=== PATIENT | male | born 1935 | race Caucasian/White ===

== ENCOUNTER → 2016-04-07 | Outpatient (CLI) | payer MEDICARE ==
[2016-04-07 10:36] LABS: ABSOLUTE BASOPHILS # (AUTO) 0.1 10^3/uL (0.0-0.2); ABSOLUTE EOSINOPHILS # (AUTO) 0.3 10^3/uL (0.0-0.6); ABSOLUTE LYMPHOCYTES (AUTO) 0.8 10^3/uL (0.5-4.7); ABSOLUTE MONOCYTES (AUTO) 0.4 10^3/uL (0.1-1.4); ABSOLUTE NEUT (AUTO) 4.6 10^3/uL (1.7-8.2); BASOPHILS % (AUTO) 0.9 % (0-2); EOSINOPHILS % (AUTO) 4.3 % (0-6); HEMATOCRIT 26.9 % (37.9-51.0); HEMOGLOBIN 8.3 g/dL (13.5-17.0); LYMPHOCYTES % (AUTO) 13.6 % (13-45); MEAN CORPUSCULAR HEMOGLOBIN 22.4 pg (27.0-33.4); MEAN CORPUSCULAR HGB CONC 30.9 g/dL (32.0-36.0); MEAN CORPUSCULAR VOLUME 72 fl (80-97); RED BLOOD COUNT 3.71 10^6/uL (4.35-5.55); RED CELL DISTRIBUTION WIDTH 16.9 % (11.5-14.0); SEGMENTED NEUTROPHILS % (AUTO) 74.2 % (42-78); WHITE BLOOD COUNT 6.2 10^3/uL (4.0-10.5)
[2016-04-07 11:03] LABS: ALANINE AMINOTRANSFERASE 21 U/L (21-72); ALBUMIN 2.6 g/dL (3.5-5.0); ALKALINE PHOSPHATASE 74 U/L (38-126); ANION GAP 11 (5-19); ASPARTATE AMINO TRANSFERASE 17 U/L (17-59); BILIRUBIN,TOTAL 0.3 mg/dL (0.2-1.3); BLOOD UREA NITROGEN 15 mg/dL (7-20); CALCIUM 8.7 mg/dL (8.4-10.2); CARBON DIOXIDE 25 mmol/L (22-30); CHLORIDE 102 mmol/L (98-107); CREATININE RESULT 1.49 mg/dL (0.52-1.25); GLUCOSE 289 mg/dL (75-110); MAGNESIUM 1.9 mg/dL (1.6-2.3); POTASSIUM 4.5 mmol/L (3.6-5.0); SODIUM 137.8 mmol/L (137-145); TOTAL PROTEIN 5.5 g/dL (6.3-8.2)
== END ==
LOC: OD 09:22
PROVIDERS: ATTEND Internal Medicine
DX: I50.9 Heart failure, unspecified (principal); E11.9 Type 2 diabetes mellitus without complications; E87.70 Fluid overload, unspecified; E78.5 Hyperlipidemia, unspecified; I25.10 Atherosclerotic heart disease of native coronary artery without angina pectoris; I10 Essential (primary) hypertension
CPT/HCPCS: 36415; 80053; 83036; 83735; 83880; 84443; 85025

== ENCOUNTER → 2016-04-25 | Outpatient (CLI) | payer MEDICARE ==
[2016-04-25 09:58] LABS: ABSOLUTE BASOPHILS # (AUTO) 0.1 10^3/uL (0.0-0.2); ABSOLUTE EOSINOPHILS # (AUTO) 0.4 10^3/uL (0.0-0.6); ABSOLUTE MONOCYTES (AUTO) 0.5 10^3/uL (0.1-1.4); ABSOLUTE NEUT (AUTO) 4.1 10^3/uL (1.7-8.2); EOSINOPHILS % (AUTO) 6.4 % (0-6); HEMATOCRIT 27.5 % (37.9-51.0); HEMOGLOBIN 8.5 g/dL (13.5-17.0); LYMPHOCYTES % (AUTO) 16.4 % (13-45); MEAN CORPUSCULAR HEMOGLOBIN 21.4 pg (27.0-33.4); MEAN CORPUSCULAR HGB CONC 31.1 g/dL (32.0-36.0); MEAN CORPUSCULAR VOLUME 69 fl (80-97); MONOCYTES % (AUTO) 8.5 % (3-13); RED BLOOD COUNT 3.99 10^6/uL (4.35-5.55); RED CELL DISTRIBUTION WIDTH 16.9 % (11.5-14.0); SEGMENTED NEUTROPHILS % (AUTO) 67.7 % (42-78); WHITE BLOOD COUNT 6.1 10^3/uL (4.0-10.5)
[2016-04-25 10:26] LABS: ANION GAP 8 (5-19); BLOOD UREA NITROGEN 15 mg/dL (7-20); CALCIUM 8.7 mg/dL (8.4-10.2); CARBON DIOXIDE 26 mmol/L (22-30); CHLORIDE 103 mmol/L (98-107); CREATININE RESULT 1.18 mg/dL (0.52-1.25); GLUCOSE 131 mg/dL (75-110); MAGNESIUM 2.1 mg/dL (1.6-2.3); POTASSIUM 4.7 mmol/L (3.6-5.0); SODIUM 137.1 mmol/L (137-145)
[2016-04-26 10:15] LABS: FERRITIN 8.82 ng/mL (17.9-464.0)
[2016-04-26 10:48] LABS: FOLATE > 20.00 ng/mL (>2.76)
== END ==
LOC: OD 08:55
PROVIDERS: ATTEND Internal Medicine
DX: D64.9 Anemia, unspecified (principal); N18.3 Chronic kidney disease, stage 3 (moderate); I25.10 Atherosclerotic heart disease of native coronary artery without angina pectoris; E11.9 Type 2 diabetes mellitus without complications; I50.9 Heart failure, unspecified
CPT/HCPCS: 36415; 80048; 82607; 82728; 82746; 83540; 83550; 83735; 83880; 85025

== ENCOUNTER 2016-05-28 11:57 | Emergency (ER) | payer MEDICARE ==
[2016-05-28] MEDS ORDERED: ASPIRIN 81 MG TABLET, CHEWABLE PO ONE (12:15)
--- NOTE | 2016-05-28 12:39 | ER Document Report ---
ED General - General Chief Complaint: Dizziness Stated Complaint: SYNCOPE Mode of Arrival: Ambulatory Information source: Patient, [facility] Records Notes: 80-year-old male history of coronary artery disease presents with complaints of after eating sausage and serial that his abdomen did not feel well that he was gurgling and he saw black spots. Patient states he felt nauseous. On arrival to emergency department patient vomited one time his food came up and he states all his symptoms resolved and now he is asymptomatic. Patient notes history of anemia, I personally intubated this patient 1 year and a half ago for pneumonia respiratory failure and septic shock at that time. pt denies any other complaints Patient does note he has had a sensitive stomach his whole adult life and has had many similar episodes TRAVEL OUTSIDE OF THE [place] IN LAST 30 DAYS: No - HPI Onset: Just prior to arrival Onset/Duration: Sudden Quality of pain: No pain Severity: Mild Pain Level: Denies Associated symptoms: Nausea, Vomiting Exacerbated by: Denies Relieved by: Denies Similar symptoms previously: Yes Recently seen / treated by doctor: Yes - Related Data Allergies/Adverse Reactions: Penicillins Allergy (Verified 05/03/14 19:04) Sulfa (Sulfonamide Antibiotics) Allergy (Verified 05/03/14 19:04) Edema Past Medical History - Social History Smoking Status: Never Smoker Cigarette use (# per day): No Chew tobacco use (# tins/day): No Smoking Education Provided: No Family History: Reviewed & Not Pertinent - Past Medical History Cardiac Medical History: Reports: Hx Coronary Artery Disease, Hx Hypercholesterolemia, Hx Hypertension Denies: Hx Heart Attack Pulmonary Medical History: Denies: Hx Asthma Neurological Medical History: Denies: Hx Cerebrovascular Accident, Hx Seizures Endocrine Medical History: Reports: Hx Diabetes Mellitus Type 2 Renal/ Medical History: Denies: Hx Peritoneal Dialysis GI Medical History: Reports: Hx Hiatal Hernia. Denies: Hx Hepatitis, Hx Ulcer Infectious Medical History: Denies: Hx Hepatitis Past Surgical History: Reports: Hx Cardiac Catheterization - stents, Hx Coronary Artery Bypass Graft, Hx Open Heart Surgery - CABG x2. Denies: Hx Pacemaker - Immunizations Hx Diphtheria, Pertussis, Tetanus Vaccination: No Review of Systems - Review of Systems Notes: REVIEW OF SYSTEMS: CONSTITUTIONAL : Denies fever, chills, or sweats. Denies recent illness. EENT: Denies eye, ear, throat, or mouth pain or symptoms. Denies nasal or sinus congestion or discharge. Denies throat, tongue, or mouth swelling or difficulty swallowing. CARDIOVASCULAR: Denies chest pain. Denies palpitations or racing or irregular heart beat. Denies ankle edema. RESPIRATORY: Denies cough, cold, or chest congestion. Denies shortness of breath, difficulty breathing, or wheezing. GASTROINTESTINAL: Admits nausea vomiting GENITOURINARY: Denies difficulty urinating, painful urination, burning, frequency, blood in urine, or discharge. MUSCULOSKELETAL: Denies back or neck pain or stiffness. Denies joint pain or swelling. SKIN: Denies rash, lesions or sores. HEMATOLOGIC : Denies easy bruising or bleeding. LYMPHATIC: Denies swollen, enlarged glands. NEUROLOGICAL: Admits to dizziness PSYCHIATRIC: Denies anxiety or stress. Denies depression, suicidal ideation, or homicidal ideation. ALL OTHER SYSTEMS REVIEWED AND NEGATIVE. Dictation was performed using [employer] voice recognition software PHYSICAL EXAMINATION: GENERAL: Well-appearing, well-nourished and in no acute distress. HEAD: Atraumatic, normocephalic. EYES: Pupils equal round and reactive to light, extraocular movements intact, sclera anicteric, conjunctiva are normal. ENT: Nares patent, oropharynx clear without exudates. Moist mucous membranes. NECK: Normal range of motion, supple without lymphadenopathy LUNGS: Breath sounds clear to auscultation bilaterally and equal. No wheezes rales or rhonchi. HEART: Regular rate and rhythm without murmurs midsternal scar ABDOMEN: Soft, nontender, nondistended abdomen. No guarding, no rebound. No masses appreciated. Musculoskeletal: Normal range of motion, no pitting or edema. No cyanosis. NEUROLOGICAL: Cranial nerves grossly intact. Normal speech, normal gait. Normal sensory, motor exams PSYCH: Normal mood, normal affect. SKIN: Warm, Dry, normal turgor, no rashes or lesions noted. Physical Exam - Vital signs Vitals: Temp Pulse Resp BP Pulse Ox 97.3 F 67 16 123/52 L 96 05/28/16 12:02 05/28/16 12:02 05/28/16 12:02 05/28/16 12:02 05/28/16 12:02 Course - Re-evaluation Re-evalutation: 05/28/16 13:06 I believe patient's symptoms are secondary to feeling nauseous after eating given that he has an extensive history of this. Lab work is pending at this time the patient looks well is in no distress 05/28/16 14:02 Given that lab work looks well patient is in no distress symptoms have resolved I believe patient is stable for discharge. Both he and are happy with this plan After performing a Medical Screening Examination, I estimate there is LOW risk for INTRACRANIAL HEMORRHAGE, ISCHEMIC CVA, MALIGNANT DYSRHYTHMIA, ACUTE CORONARY SYNDROME, MENINGITIS, PULMONARY EMBOLISM, or SEPSIS thus I consider the discharge disposition reasonable. I have reevaluated this patient multiple times and no significant life threatening changes are noted. The patient and I have discussed the diagnosis and risks, and we agree with discharging home with close follow-up with the understanding that symptoms and presentations can change. We also discussed returning to the Emergency Department immediately if new or worsening symptoms occur. We have discussed the symptoms which are most concerning (e.g., changing or worsening pain, weakness, vomiting, fever) that necessitate immediate return. - Vital Signs Vital signs: Temp Pulse Resp BP Pulse Ox 97.3 F 67 13 142/56 H 96 05/28/16 12:02 05/28/16 12:02 05/28/16 14:00 05/28/16 13:01 05/28/16 14:00 - Laboratory Result Diagrams: 05/28/16 12:35 05/28/16 12:35 Laboratory results interpreted by me: 05/28/16 05/28/16 12:35 12:35 Hgb 10.9 L Hct 34.3 L MCV 74 L MCH 23.6 L MCHC 31.7 L RDW 22.0 H Creatinine 1.40 H Est GFR ( Amer) 59 L Est GFR (Non-Af Amer) 49 L Glucose 279 H - Diagnostic Test Radiology reviewed: Image reviewed, Reports reviewed - EKG Interpretation by Me EKG shows normal: Sinus rhythm, Hilbert, Intervals, QRS Complexes Discharge - Discharge Clinical Impression: Abdominal pain Qualifiers: Abdominal location: left upper quadrant Qualified Code(s): R10.12 - Left upper quadrant pain Nausea & vomiting Qualifiers: Vomiting type: unspecified Vomiting Intractability: non-intractable Qualified Code(s): R11.2 - Nausea with vomiting, unspecified Condition: Stable Disposition: HOME, SELF-CARE Instructions: Abdominal Pain ([facility]) Referrals: ASHWIN RUIZ MD [Primary Care Provider] - Follow up tomorrow
[2016-05-28 12:47] LABS: ABSOLUTE BASOPHILS # (AUTO) 0.1 10^3/uL (0.0-0.2); ABSOLUTE EOSINOPHILS # (AUTO) 0.3 10^3/uL (0.0-0.6); ABSOLUTE MONOCYTES (AUTO) 0.6 10^3/uL (0.1-1.4); ABSOLUTE NEUT (AUTO) 5.2 10^3/uL (1.7-8.2); BASOPHILS % (AUTO) 1.1 % (0-2); EOSINOPHILS % (AUTO) 4.7 % (0-6); HEMATOCRIT 34.3 % (37.9-51.0); HEMOGLOBIN 10.9 g/dL (13.5-17.0); HGB HCT DIFFERENCE -1.6; LYMPHOCYTES % (AUTO) 13.9 % (13-45); MEAN CORPUSCULAR HEMOGLOBIN 23.6 pg (27.0-33.4); MEAN CORPUSCULAR HGB CONC 31.7 g/dL (32.0-36.0); MEAN CORPUSCULAR VOLUME 74 fl (80-97); MONOCYTES % (AUTO) 8.2 % (3-13); RED BLOOD COUNT 4.62 10^6/uL (4.35-5.55); SEGMENTED NEUTROPHILS % (AUTO) 72.1 % (42-78); WHITE BLOOD COUNT 7.1 10^3/uL (4.0-10.5)
[2016-05-28 13:07] LABS: ALANINE AMINOTRANSFERASE 25 U/L (21-72); ALBUMIN 3.7 g/dL (3.5-5.0); ALKALINE PHOSPHATASE 77 U/L (38-126); ANION GAP 13 (5-19); ASPARTATE AMINO TRANSFERASE 22 U/L (17-59); BILIRUBIN,DIRECT 0.3 mg/dL (0.0-0.4); BILIRUBIN,TOTAL 0.5 mg/dL (0.2-1.3); BLOOD UREA NITROGEN 20 mg/dL (7-20); CALCIUM 9.2 mg/dL (8.4-10.2); CARBON DIOXIDE 25 mmol/L (22-30); CHLORIDE 101 mmol/L (98-107); CREATINE KINASE 89 U/L (55-170); GLUCOSE 279 mg/dL (75-110); POTASSIUM 4.6 mmol/L (3.6-5.0); SODIUM 139.1 mmol/L (137-145); TOTAL PROTEIN 6.5 g/dL (6.3-8.2)
[2016-05-28 13:19] LABS: CREATINE KINASE MB 1.62 ng/mL (<4.55)
[2016-05-28 13:20] LABS: TROPONIN I < 0.012 ng/mL
[2016-05-28 14:08] VITALS: BP 159/60
--- NOTE | 2016-05-28 18:11 | EKG REPORT ---
SEVERITY:- ABNORMAL ECG - SINUS RHYTHM FIRST DEGREE AV BLOCK NONSPECIFIC INTRAVENTRICULAR CONDUCTION DELAY NONSPECIFIC ST-T CHANGES- INFERIOR LEADS : Confirmed by: Henrique Grimm MD 28-May-2016 18:11:07
== END 2016-05-28 14:08 | disposition home or self-care (01) ==
LOC: ER 11:57
DX: R10.12 Left upper quadrant pain (principal); R11.2 Nausea with vomiting, unspecified; R42 Dizziness and giddiness; R55 Syncope and collapse
CPT/HCPCS: 36415; 71010; 80053; 82550; 82553; 84484; 85025; 93005; 93010; 99284

== ENCOUNTER 2016-12-29 09:14 | Day surgery (SDC) | payer MEDICARE ==
[~2016-12-29 09:14] MED LIST: KETOROLAC TROMETHAMINE 0.45% 4 DROP/0.4 ML DROPERETTE OS PRN
[2016-12-29] MEDS: TETRACAINE HCL 0.5% OPH SOLN 2 ML OS PRN ×4 (09:59→10:31)
[2016-12-29] MEDS: CYCLOPENTOLATE 0.2%/PHENYLEPHRINE 1% OPH SOLN 2 ML OS PRN ×2 (10:00→10:23)
[2016-12-29] MEDS: BESIFLOXACIN HCL 0.6% OPH SUSP 5 ML BOTTLE OS PRN ×4 (10:00→10:50)
[2016-12-29] MEDS: TROPICAMIDE 1% OPH SOLN 3 ML OS PRN ×3 (10:00→10:23)
[2016-12-29] MEDS ORDERED: FENTANYL CITRATE INJ/PF 100 MCG/2 ML AMPUL ONE (10:22)
[2016-12-29] MEDS ORDERED: MIDAZOLAM 2 MG/2 ML INJ ONE (10:22)
[2016-12-29] MEDS: CHONDR SU A NA/HYALUR INTRAOC KIT (SURGICARE) ONE ×2 (10:28→10:37)
[2016-12-29] MEDS: LIDOCAINE 1% INJ-PF (10 MG/ML) 30 ML SDV ONE ×2 (10:28→10:37)
[2016-12-29] MEDS: PHENYLEPHRINE/KETOROLAC 1%-0.3% 4 ML VIAL ONE ×2 (10:28→10:37)
--- NOTE | 2016-12-29 19:33 | [facility] OPERATIVE REPORT E ---
[facility] Operative Report NAME: NANCY VALDES AGE: 81Y DATE OF SURGERY: 12/29/2016 ROOM: PREOPERATIVE DIAGNOSIS: CATARACT, LEFT EYE. POSTOPERATIVE DIAGNOSIS: CATARACT, LEFT EYE. OPERATION: Cataract extraction with intraocular lens implant of the left eye. SURGEON: EMERALD CHEATHAM M.D. ANESTHESIA: Topical. PROCEDURE: After obtaining appropriate consent, the patient's left eye was prepped and draped in sterile fashion as well as the surgeon in a sterile manner and cataract surgery was started. First a paracentesis blade was used to make a small side-port incision. Viscoelastic was used to inflate the anterior chamber. Next a 2.4 mm incision was made with the paracentesis blade. A continuous capsulorrhexis incision was made using a cystotome and Utrata forceps. Following this hydrodissection was carried out to make the lens fully loose and mobile and it was rotated 90 degrees. Following this, a [id number]-[id number] technique was used to phacoemulsify the lens with a CDE of 7.23. The remaining cortex was removed with irrigation/aspiration. Provisc was instilled into the capsular bag to inflate the bag. A SN60WF, 22.0 diopter lens was placed. The remaining viscoelastic material was removed with irrigation/aspiration. Following this, a 10-0 nylon suture was used to close the incision and it was found to be watertight. Vigamox was instilled in the eye and a protective shield was placed over the eye. The patient returned to the postoperative recovery in stable condition. DICTATING PHYSICIAN: EMERALD CHEATHAM M.D. [id number] PHY#: [id number] ID: [id number] JOB#: [id number] ACCT: [id number] cc:EMERALD CHEATHAM M.D. >
--- NOTE | 2016-12-30 04:58 | [facility] DISCHARGE SUMMARY E ---
[facility] Discharge Summary NAME: NANCY VALDES AGE: 81Y ADMITTED: 12/29/2016 DISCHARGED: This is an 81-year-old patient who underwent cataract extraction of the left eye. DIAGNOSIS: Cataract, left eye. He underwent surgery because he was having difficulty with glare from headlights at night. DISCHARGE INSTRUCTIONS: He is to be on a regular diet. No bending at the waist, no heavy lifting. He should use the Besivance, Ilevro, and Durezol at 3 p.m. and 8 p.m. and sleep with a rigid shield. I will see him for a 1 day postoperative tomorrow. DICTATING PHYSICIAN: EMERALD CHEATHAM M.D. [id number] PHY#: [id number] ID: [id number] JOB#: [id number] ACCT: [id number] cc:EMERALD CHEATHAM M.D. >
== END 2016-12-29 11:28 | disposition home or self-care (01) ==
LOC: SC 09:14
PROVIDERS: ATTEND Internal Medicine
PROC: 08RK3JZ Replacement of Left Lens with Synthetic Substitute, Percutaneous Approach (ICD-10-PCS; principal; 2016-12-29 11:00)
DX: H25.812 Combined forms of age-related cataract, left eye (principal); H57.03 Miosis; I10 Essential (primary) hypertension; E78.00 Pure hypercholesterolemia, unspecified; K21.9 Gastro-esophageal reflux disease without esophagitis; I51.9 Heart disease, unspecified; D50.9 Iron deficiency anemia, unspecified; Z87.891 Personal history of nicotine dependence; Z79.02 Long term (current) use of antithrombotics/antiplatelets; Z88.0 Allergy status to penicillin; Z88.2 Allergy status to sulfonamides; Z79.84 Long term (current) use of oral hypoglycemic drugs; Z79.4 Long term (current) use of insulin
CPT/HCPCS: 66984; 82962; V2632; J2250; J3490 ×2; A9270; J3010; C9447; 142

== ENCOUNTER 2017-04-20 23:13 | Emergency (ER) | payer MEDICARE ==
--- NOTE | 2017-04-21 00:54 | ER Document Report ---
ED ENT - General Chief Complaint: Nose Bleed Stated Complaint: NOSE BLEED Time Seen by Provider: 04/21/17 00:52 Notes: The patient is an 81-year-old male, past medical history anemia, CAD with stents (on Plavix and aspirin), presents with 1 hour of epistaxis. He estimates that he lost about 8 ounces of blood. He received a blood transfusion earlier today for chronic anemia. He denies nasal trauma and has already tried holding pressure to the nose. TRAVEL OUTSIDE OF THE [place] IN LAST 30 DAYS: No - Related Data Allergies/Adverse Reactions: Penicillins Allergy (Verified 12/23/16 11:04) quinine Allergy (Verified 12/23/16 11:04) Sulfa (Sulfonamide Antibiotics) Allergy (Verified 12/23/16 11:04) Edema Past Medical History - General Information source: Patient - Social History Smoking Status: Former Smoker Family History: Reviewed & Not Pertinent Patient has suicidal ideation: No Patient has homicidal ideation: No - Past Medical History Cardiac Medical History: Reports: Hx Coronary Artery Disease, Hx Hypercholesterolemia, Hx Hypertension Denies: Hx Heart Attack Pulmonary Medical History: Denies: Hx Asthma Neurological Medical History: Denies: Hx Cerebrovascular Accident, Hx Seizures Endocrine Medical History: Reports: Hx Diabetes Mellitus Type 2 Renal/ Medical History: Denies: Hx Peritoneal Dialysis GI Medical History: Reports: Hx Hiatal Hernia. Denies: Hx Hepatitis, Hx Ulcer Infectious Medical History: Denies: Hx Hepatitis Past Surgical History: Reports: Hx Cardiac Catheterization - stents, Hx Coronary Artery Bypass Graft, Hx Open Heart Surgery - CABG x1. Denies: Hx Pacemaker - Immunizations Hx Diphtheria, Pertussis, Tetanus Vaccination: No Review of Systems - Review of Systems Notes: REVIEW OF SYSTEMS: CONSTITUTIONAL: -fevers, -chills EENT: -eye pain, -difficulty swallowing, -nasal congestion, +epistaxis CARDIOVASCULAR: -chest pain, -syncope. RESPIRATORY: -cough, -SOB GASTROINTESTINAL: -abdominal pain, -nausea, -vomiting, -diarrhea GENITOURINARY: -dysuria, -hematuria MUSCULOSKELETAL: -back pain, -neck pain SKIN: -rash or skin lesions. HEMATOLOGIC: -easy bruising or bleeding. LYMPHATIC: -swollen, enlarged glands. NEUROLOGICAL: -altered mental status or loss of consciousness, -headache, - neurologic symptoms PSYCHIATRIC: -anxiety, -depression. ALL OTHER SYSTEMS REVIEWED AND NEGATIVE. Physical Exam - Vital signs Vitals: Resp Pulse Ox 16 100 04/21/17 00:30 04/21/17 00:30 - Notes Notes: PHYSICAL EXAMINATION: GENERAL: Well-appearing, well-nourished and in no acute distress. HEAD: Atraumatic, normocephalic. EYES: Pupils equal round and reactive to light, extraocular movements intact, sclera anicteric, conjunctiva are normal. ENT: large clot in left nares, no active bleeding after clot removed, oropharynx clear without exudates. Moist mucous membranes. NECK: Normal range of motion, supple without lymphadenopathy LUNGS: Breath sounds clear to auscultation bilaterally and equal. No wheezes rales or rhonchi. HEART: Regular rate and rhythm without murmurs ABDOMEN: Soft, nontender, normoactive bowel sounds. No guarding, no rebound. No masses appreciated. EXTREMITIES: Normal range of motion, no pitting or edema. No cyanosis. NEUROLOGICAL: Cranial nerves grossly intact. Normal speech, normal gait. Normal sensory and motor exams. PSYCH: Normal mood, normal affect. SKIN: Warm, Dry, normal turgor, no rashes or lesions noted. Course - Re-evaluation Re-evalutation: Patient with no active bleeding after large clot removed from left naris. Nasal packing was placed that was soaked in TXA and Afrin. The packing was left in place for 45 minutes and removed. There remain no active bleeding. His hemoglobin is 10.4 and he does not require transfusions at this time. Given very strict return precautions and he understands. - Vital Signs Vital signs: Temp Pulse Resp BP Pulse Ox 98.4 F 74 16 150/62 H 97 04/21/17 02:11 04/21/17 02:11 04/21/17 02:11 04/21/17 02:11 04/21/17 02:11 - Laboratory Result Diagrams: 04/21/17 01:39 Laboratory results interpreted by me: 04/21/17 01:39 RBC 3.69 L Hgb 10.4 L Hct 30.8 L RDW 14.9 H Procedures - Nosebleed Procedure Left Time completed: 01:30 Location: Anterior Supplies used: Packing Notes: Soaked in Afrin and TXA Discharge - Discharge Clinical Impression: Epistaxis Condition: Stable Disposition: HOME, SELF-CARE Additional Instructions: Nosebleed Instructions There is a significant chance of re-bleeding following a nosebleed. Proper care makes this less likely. Do not touch the nose for 24 hours. Do not blow the nose forcefully for one week. After 24 hours, gently apply Vaseline ointment to both nostrils with the tip of a finger, three times a day, for one week. It's normal to have a bloody mucous discharge for a few days. If active bleeding recurs, blow all the blood from the nose, then sit quietly and pinch the nose as firmly as possible for 10 minutes. If this does not stop the bleeding, return for further care. If packing was left in the nose and it starts to come out of the nostril, either tuck it back in or cut it off. Don't pull it out. Return for recheck and removal of the packing when instructed. Persons with frequent nosebleeds should avoid aspirin (unless prescribed for another reason). Humidity in the bedroom, and petroleum jelly applied to the nostrils at night may help. Referrals: BREE NESS DO [ASSOCIATE] - Follow up as needed
[2017-04-21] MEDS ORDERED: TRANEXAMIC ACID INJ/PF 1,000 MG/10 ML SDV IV ONE (01:07)
[2017-04-21] MEDS ORDERED: OXYMETAZOLINE HCL 0.05% NASAL SPRAY 15 ML BOTTLE NASL ONE (01:07)
[2017-04-21 01:46] LABS: ABSOLUTE BASOPHILS # (AUTO) 0.1 10^3/uL (0.0-0.2); ABSOLUTE EOSINOPHILS # (AUTO) 0.4 10^3/uL (0.0-0.6); ABSOLUTE LYMPHOCYTES (AUTO) 1.3 10^3/uL (0.5-4.7); ABSOLUTE MONOCYTES (AUTO) 0.7 10^3/uL (0.1-1.4); ABSOLUTE NEUT (AUTO) 5.7 10^3/uL (1.7-8.2); BASOPHILS % (AUTO) 0.9 % (0-2); EOSINOPHILS % (AUTO) 4.9 % (0-6); HEMATOCRIT 30.8 % (37.9-51.0); HEMOGLOBIN 10.4 g/dL (13.5-17.0); LYMPHOCYTES % (AUTO) 15.8 % (13-45); MEAN CORPUSCULAR HEMOGLOBIN 28.3 pg (27.0-33.4); MEAN CORPUSCULAR HGB CONC 33.9 g/dL (32.0-36.0); MEAN CORPUSCULAR VOLUME 84 fl (80-97); MONOCYTES % (AUTO) 9.1 % (3-13); PLATELET COUNT 240 10^3/uL (150-450); RED BLOOD COUNT 3.69 10^6/uL (4.35-5.55); RED CELL DISTRIBUTION WIDTH 14.9 % (11.5-14.0); SEGMENTED NEUTROPHILS % (AUTO) 69.3 % (42-78); TOTAL CELLS COUNTED % (AUTO) 100 %; WHITE BLOOD COUNT 8.2 10^3/uL (4.0-10.5)
[2017-04-21 02:13] VITALS: BP 150/62
== END 2017-04-21 02:23 | disposition home or self-care (01) ==
LOC: ER 23:13
DX: R04.0 Epistaxis (principal); D64.9 Anemia, unspecified; E11.9 Type 2 diabetes mellitus without complications; I10 Essential (primary) hypertension; I25.10 Atherosclerotic heart disease of native coronary artery without angina pectoris; Z79.02 Long term (current) use of antithrombotics/antiplatelets; Z79.82 Long term (current) use of aspirin; Z95.5 Presence of coronary angioplasty implant and graft; Z88.0 Allergy status to penicillin; Z88.2 Allergy status to sulfonamides; Z87.891 Personal history of nicotine dependence; Z95.1 Presence of aortocoronary bypass graft
CPT/HCPCS: 99283; 36415; 85025; 30901; J3490 ×2

== ENCOUNTER 2017-05-05 12:32 | Emergency (ER) | payer MEDICARE ==
[2017-05-05] MEDS ORDERED: OXYMETAZOLINE HCL 0.05% NASAL SPRAY 15 ML BOTTLE NASL ONE (13:00)
--- NOTE | 2017-05-05 13:16 | ER Document Report ---
ED General - General Chief Complaint: Nose Bleed Stated Complaint: NOSE BLEED Time Seen by Provider: 05/05/17 12:43 Mode of Arrival: Ambulatory Information source: Patient Notes: 81-year-old male on Plavix and aspirin presents with complaints of nosebleed every day for the past 2 weeks. Patient notes it worsens at nighttime, he denies any fevers or chills TRAVEL OUTSIDE OF THE [place] IN LAST 30 DAYS: No - HPI Onset: Other Onset/Duration: Persistent Quality of pain: No pain Severity: Mild Pain Level: Denies Associated symptoms: Other Exacerbated by: Denies Relieved by: Denies Similar symptoms previously: Yes Recently seen / treated by doctor: Yes - Related Data Allergies/Adverse Reactions: Penicillins Allergy (Verified 05/05/17 12:33) quinine Allergy (Verified 05/05/17 12:33) Sulfa (Sulfonamide Antibiotics) Allergy (Verified 05/05/17 12:33) Edema Past Medical History - Social History Smoking Status: Never Smoker Cigarette use (# per day): No Chew tobacco use (# tins/day): No Smoking Education Provided: No Frequency of alcohol use: None Drug Abuse: None Family History: Reviewed & Not Pertinent Patient has suicidal ideation: No Patient has homicidal ideation: No - Past Medical History Cardiac Medical History: Reports: Hx Coronary Artery Disease, Hx Hypercholesterolemia, Hx Hypertension Denies: Hx Heart Attack Pulmonary Medical History: Denies: Hx Asthma Neurological Medical History: Denies: Hx Cerebrovascular Accident, Hx Seizures Endocrine Medical History: Reports: Hx Diabetes Mellitus Type 2 Renal/ Medical History: Denies: Hx Peritoneal Dialysis GI Medical History: Reports: Hx Hiatal Hernia. Denies: Hx Hepatitis, Hx Ulcer Infectious Medical History: Denies: Hx Hepatitis Past Surgical History: Reports: Hx Cardiac Catheterization - stents, Hx Coronary Artery Bypass Graft, Hx Open Heart Surgery - CABG x1. Denies: Hx Pacemaker - Immunizations Hx Diphtheria, Pertussis, Tetanus Vaccination: No Review of Systems - Review of Systems Notes: REVIEW OF SYSTEMS: CONSTITUTIONAL : Denies fever, chills, or sweats. Denies recent illness. EENT: Admits bleeding from left nostril CARDIOVASCULAR: Denies chest pain. Denies palpitations or racing or irregular heart beat. Denies ankle edema. RESPIRATORY: Denies cough, cold, or chest congestion. Denies shortness of breath, difficulty breathing, or wheezing. GASTROINTESTINAL: Denies abdominal pain or distention. Denies nausea, vomiting , or diarrhea. Denies blood in vomitus, stools, or per rectum. Denies black, tarry stools. Denies constipation. GENITOURINARY: Denies difficulty urinating, painful urination, burning, frequency, blood in urine, or discharge. MUSCULOSKELETAL: Denies back or neck pain or stiffness. Denies joint pain or swelling. SKIN: Denies rash, lesions or sores. HEMATOLOGIC : Denies easy bruising or bleeding. LYMPHATIC: Denies swollen, enlarged glands. NEUROLOGICAL: Denies confusion or altered mental status. Denies passing out or loss of consciousness. Denies dizziness or lightheadedness. Denies headache. Denies weakness or paralysis or loss of use of either side. Denies problems with gait or speech. Denies sensory loss, numbness, or tingling. Denies seizures. PSYCHIATRIC: Denies anxiety or stress. Denies depression, suicidal ideation, or homicidal ideation. ALL OTHER SYSTEMS REVIEWED AND NEGATIVE. Dictation was performed using [employer] voice recognition software PHYSICAL EXAMINATION: GENERAL: Well-appearing, well-nourished and in no acute distress. HEAD: Atraumatic, normocephalic. EYES: Pupils equal round and reactive to light, extraocular movements intact, sclera anicteric, conjunctiva are normal. ENT: Right nostril is normal in appearance left does have a large clot no active bleeding NECK: Normal range of motion, supple without lymphadenopathy LUNGS: Breath sounds clear to auscultation bilaterally and equal. No wheezes rales or rhonchi. HEART: Regular rate and rhythm without murmurs ABDOMEN: Soft, nontender, nondistended abdomen. No guarding, no rebound. No masses appreciated. Musculoskeletal: Normal range of motion, no pitting or edema. No cyanosis. NEUROLOGICAL: Cranial nerves grossly intact. Normal speech, normal gait. Normal sensory, motor exams PSYCH: Normal mood, normal affect. SKIN: Warm, Dry, normal turgor, no rashes or lesions noted. Physical Exam - Vital signs Vitals: Temp Pulse Resp BP Pulse Ox 98.0 F 88 16 166/59 H 96 05/05/17 12:37 05/05/17 12:37 05/05/17 12:37 05/05/17 12:37 05/05/17 12:37 Course - Re-evaluation Re-evalutation: 05/05/17 13:26 since patient has continuous bleeding i did offer , afrin, vs packing, pt would like the packing placed, , it was done with no complications cbc ordered since he has hx of anemia 05/05/17 14:20 Hemoglobin is noted to be 11.1, patient otherwise is stable the nasal packing is in place he will be placed on antibiotics and be given follow-up with ENT physician After performing a Medical Screening Examination, I estimate there is LOW risk for CENTRAL CORD SYNDROME, LUDWIGS ANGINA, PERITONSILLAR ABSCESS, RETROPHARYNGEAL ABSCESS, EPIDURAL MASS LESION, SEVERE SPINAL STENOSIS, ARTERIAL DISSECTION, MENINGITIS, or ACUTE CORONARY SYNDROME, thus I consider the discharge disposition reasonable. I have reevaluated this patient multiple times and no significant life threatening changes are noted. The patient and I have discussed the diagnosis and risks, and we agree with discharging home to follow-up on an outpatient basis with the understanding that symptoms and presentations can change. We also discussed returning to the Emergency Department immediately if new or worsening symptoms occur. We have discussed the symptoms which are most concerning (e.g., saddle anesthesia, urinary or bowel incontinence or retention, changing or worsening pain) that necessitate immediate return. - Vital Signs Vital signs: Temp Pulse Resp BP Pulse Ox 98.0 F 88 16 166/59 H 96 05/05/17 12:37 05/05/17 12:37 05/05/17 12:37 05/05/17 12:37 05/05/17 12:37 - Laboratory Result Diagrams: 05/05/17 13:49 Laboratory results interpreted by me: 05/05/17 13:49 RBC 3.70 L Hgb 11.0 L Hct 31.9 L RDW 16.9 H Procedures - Nosebleed Procedure Left Time completed: 13:15 Location: Anterior Supplies used: [place], Other - afrin Discharge - Discharge Clinical Impression: Bleeding nose, Hx of shelter use of blood thinners Condition: Stable Disposition: HOME, SELF-CARE Instructions: Nosebleed Instructions ([facility]) Additional Instructions: Please contact the following office for an appointment tomorrow or return immediately if there are any other concerns [facility] [employer] Address: [address] [place] [id number] Prescriptions: Cephalexin Monohydrate [Keflex 500 mg Capsule] 500 mg PO Q6H 5 Days capsule
[2017-05-05 14:15] LABS: ABSOLUTE BASOPHILS # (AUTO) 0.1 10^3/uL (0.0-0.2); ABSOLUTE EOSINOPHILS # (AUTO) 0.2 10^3/uL (0.0-0.6); ABSOLUTE LYMPHOCYTES (AUTO) 0.9 10^3/uL (0.5-4.7); ABSOLUTE MONOCYTES (AUTO) 0.6 10^3/uL (0.1-1.4); ABSOLUTE NEUT (AUTO) 4.3 10^3/uL (1.7-8.2); BASOPHILS % (AUTO) 1.3 % (0-2); EOSINOPHILS % (AUTO) 3.3 % (0-6); HEMATOCRIT 31.9 % (37.9-51.0); LYMPHOCYTES % (AUTO) 15.4 % (13-45); MEAN CORPUSCULAR HEMOGLOBIN 29.6 pg (27.0-33.4); MEAN CORPUSCULAR HGB CONC 34.5 g/dL (32.0-36.0); MEAN CORPUSCULAR VOLUME 86 fl (80-97); MONOCYTES % (AUTO) 9.1 % (3-13); PLATELET COUNT 212 10^3/uL (150-450); RED CELL DISTRIBUTION WIDTH 16.9 % (11.5-14.0); SEGMENTED NEUTROPHILS % (AUTO) 70.9 % (42-78); TOTAL CELLS COUNTED % (AUTO) 100 %; WHITE BLOOD COUNT 6.1 10^3/uL (4.0-10.5)
[2017-05-05 14:41] VITALS: BP 165/62
== END 2017-05-05 14:41 | disposition home or self-care (01) ==
LOC: ER 12:32
DX: R04.0 Epistaxis (principal); I25.10 Atherosclerotic heart disease of native coronary artery without angina pectoris; I10 Essential (primary) hypertension; E11.9 Type 2 diabetes mellitus without complications; Z79.02 Long term (current) use of antithrombotics/antiplatelets; Z79.82 Long term (current) use of aspirin; Z95.5 Presence of coronary angioplasty implant and graft; Z95.1 Presence of aortocoronary bypass graft; Z88.0 Allergy status to penicillin; Z88.2 Allergy status to sulfonamides; Z88.8 Allergy status to other drugs, medicaments and biological substances
CPT/HCPCS: 99283; 36415; 85025; 30901; J3490

== ENCOUNTER → 2017-07-06 | Outpatient (CLI) | payer MEDICARE ==
--- NOTE | 2017-07-06 11:55 | RADIOLOGY REPORT (SQ) ---
EXAM DESCRIPTION: VENOUS UNILATERAL LOWER COMPLETED DATE/TIME: 07/06/2017 11:27 am REASON FOR STUDY: SWELLING M79.605 PAIN IN LEFT LEG COMPARISON: None. TECHNIQUE: Dynamic and static baron scale and color images acquired of the left leg venous system. Se lected spectral images acquired with additional compression and augmentation maneuvers. The contralat eral common femoral vein and saphenofemoral junction were also imaged. Images stored on PACS. LIMITATIONS: None. FINDINGS: LEFT COMMON FEMORAL: Normal phasicity, compression and augmentation. No visualized echogenic material on g ray scale. No defects on color images. FEMORAL: Normal compression and augmentation. No visualized echogenic material on baron scale. No defe cts on color images. POPLITEAL: Normal compression, augmentation. No visualized echogenic material on baron scale. No defec ts on color images. CALF VESSELS: Normal compression, augmentation. No visualized echogenic material on baron scale. No de fects on color images. GSV and SSV: Normal compression, augmentation. No visualized echogenic material on baron scale. No def ects on color images. ANY DEEP VENOUS INSUFFICIENCY: No. ANY EVIDENCE OF POPLITEAL CYST: No. OTHER: No other significant finding. RIGHT COMMON FEMORAL VEIN AND SAPHENOFEMORAL JUNCTION: Normal phasicity, compression and augmentation. No visualized echogenic material on baron scale. No de fects on color images. IMPRESSION: NO EVIDENCE OF DVT OR SVT IN THE LEFT LEG. TECHNICAL DOCUMENTATION: JOB ID: [id number] [employer]- All Rights Reserved Reading location - IP/workstation name: [facility]
== END ==
LOC: SP 09:55
PROVIDERS: ATTEND Internal Medicine
DX: M79.605 Pain in left leg (principal); M79.89 Other specified soft tissue disorders
CPT/HCPCS: 93971

== ENCOUNTER → 2017-09-12 | Outpatient (CLI) | payer MEDICARE ==
--- NOTE | 2017-09-12 08:36 | RADIOLOGY REPORT (SQ) ---
EXAM DESCRIPTION: CT CHEST WITHOUT COMPLETED DATE/TIME: 09/12/2017 7:26 am REASON FOR STUDY: HEMOPTYSIS (R04.2) R04.2 HEMOPTYSIS COMPARISON: 05/03/2014. TECHNIQUE: CT scan performed of the chest without intravenous contrast. Images reviewed with lung, soft tissue and bone windows. Reconstructed coronal and sagittal MPR images reviewed. All images st ored on PACS. All CT scanners at this facility use dose modulation, iterative reconstruction, and/or weight based d osing when appropriate to reduce radiation dose to as low as reasonably achievable (ALARA). [facility]: Dose Right [facility]: CareDose [facility]: Dose Right [facility]: Teradose 4D [facility]: [place] RADIATION DOSE: CT Rad equipment meets quality standard of care and radiation dose reduction techniq ues were employed. CTDIvol: 17.8 mGy. DLP: 693 mGy-cm. mGy. LIMITATIONS: No technical limitations. FINDINGS: LUNGS AND PLEURA: Emphysematous changes. Chronic scarring. Bronchiectasis in the lung ba ses. Left pleural effusion. Patchy opacification of the left lower lobe with masslike area measurin g approximately 8 cm in greatest dimension. HILAR AND MEDIASTINAL STRUCTURES: No identified masses or abnormal nodes. No obvious aneurysm. HEART AND VASCULAR STRUCTURES: No aneurysm. No pericardial effusion. UPPER ABDOMEN: No significant findings. Limited exam. THYROID AND OTHER SOFT TISSUES: No masses. No adenopathy. BONES: No significant finding. Degenerative changes in the spine. HARDWARE: Sternotomy wires. Coronary bypass markers. OTHER: No other significant findings. IMPRESSION: 1. PATCHY OPACIFICATION OF THE LEFT LOWER LOBE WITH MASSLIKE AREA. GREATEST DIMENSION 8 CM. THIS IS CONCERNING FOR MALIGNANT PROCESS ALTHOUGH PNEUMONIA/ATELECTASIS MAY ALSO BE PRESENT. THERE IS A SMA LL LEFT PLEURAL EFFUSION. 2. CHRONIC EMPHYSEMATOUS CHANGES WITH SCARRING AND BRONCHIECTASIS. TECHNICAL DOCUMENTATION: JOB ID: [id number] Quality ID # [id number]: Final reports with documentation of one or more dose reduction techniques (e.g., Au tomated exposure control, adjustment of the mA and/or kV according to patient size, use of iterative reconstruction technique) 2010 [employer]- All Rights Reserved Reading location - IP/workstation name: [email or web address]
== END ==
LOC: RAD 06:48
PROVIDERS: ATTEND Internal Medicine
DX: J47.9 Bronchiectasis, uncomplicated (principal); R04.2 Hemoptysis
CPT/HCPCS: 71250

== ENCOUNTER → 2017-10-10 | Outpatient (CLI) | payer MEDICARE ==
--- NOTE | 2017-10-11 08:55 | RADIOLOGY REPORT (SQ) ---
EXAM DESCRIPTION: PET CT SKULL/THIGH COMPLETED DATE/TIME: 10/10/2017 8:36 pm REASON FOR STUDY: C34.32 OTHER NONSPECIFIC ABNORMAL FINDING OF LUNG FIELD R91.8 OTHER NONSPECIFIC A BNORMAL FINDING OF LUNG FIELD COMPARISON: CT chest 05/03/2014, 09/12/2017 CT abdomen pelvis 08/11/2014 RADIONUCLIDE AND DOSE: 11.9 mCi F18 FDG The route of agent administration: Intravenous FASTING BLOOD SUGAR: 123 mg/dl CONTRAST TYPE AND DOSE: No CT contrast given. TECHNIQUE: Blood glucose level was verified. Above dose of FDG was injected intravenously. 2-D seg mented attenuation correction images were obtained from the base of the skull to the midthighs. Nonc ontrast CT images were obtained for attenuation correction and fusion with emission images. CT image s were performed without oral or intravenous contrast and are not sensitive for parenchymal lesions. A series of overlapping emission PET images were obtained. Images reviewed and manipulated at [facility] work station by the radiologist. Images stored on PACS. LIMITATIONS: None. FINDINGS: HEAD AND NECK: No areas of abnormal metabolic activity in the soft tissues of the head and neck. CHEST: A left lower hilar mass is present, 4.5 x 4 cm in size with SUV of 9.7. This causes occlusion of the left lower lobe segmental bronchi with postobstructive pneumonia in the left lower lobe. Within the collapsed left lower lobe, there is a mass with for a peripheral rim of activity measuring 4.4 x 3.5 cm in size with SUV of 7.8, either a postobstructive lung abscess or perhaps primary tumor . A moderate-sized left pleural effusion is present without pleural hypermetabolic activity. There are multiple enlarged non metabolic mediastinal lymph nodes as follows: Right paratracheal image 70, 2 x 1.5 cm Prevascular image 74, 4.5 x 1 cm Pretracheal on image 76, 2.5 x 2 cm Sub- carinal image 88, 2.2 x 1.2 cm ABDOMEN AND PELVIS: No areas of abnormal metabolic activity in the abdomen or pelvis. Expected physi ologic activity is present in the genitourinary system and bowel. PROXIMAL LOWER EXTREMITIES: No areas of abnormal metabolic activity in the soft tissues of the lower extremities. BONES: No abnormal metabolic activity in the visualized skeleton. ADDITIONAL CT FINDINGS: Very heavily calcified carotid bifurcations and coronary arteries. Bilateral renal cortical cysts less than 3 cm in size. Colonic diverticulosis without CT signs of acute diver ticulitis. OTHER: Liver background activity 1.9 SUV. 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 Mod erate-sized left pleural effusion. Peripheral rim enhancing lesion in the collapse left lower lobe, could either represent a lung primar y tumor or cavitating infiltrate. TECHNICAL DOCUMENTATION: JOB ID: [id number] [employer]- All Rights Reserved Reading location - IP/workstation name: [email or web address]
== END ==
LOC: RAD 17:35
PROVIDERS: ATTEND Internal Medicine Pulmonary Disease
DX: C34.32 Malignant neoplasm of lower lobe, left bronchus or lung (principal); J90 Pleural effusion, not elsewhere classified
CPT/HCPCS: 78815; A9552

== ENCOUNTER 2017-10-11 12:11 | Inpatient (IN) | payer MEDICARE ==
--- NOTE | 2017-10-11 12:31 | ER Document Report ---
ED General - General Chief Complaint: Direct Admit/Private MD Stated Complaint: DIFFICULTY BREATHING/DIRECT ADMIT Time Seen by Provider: 10/11/17 12:21 Mode of Arrival: Wheelchair Notes: Chief complaint: Shortness of breath History of complain: 81 years old male presents today with a few week history of cough with bloody sputum with difficulty in breathing. He was seen by the primary care physician and sent over here to be admitted. The sputum gradually decreased in content of blood. Now mostly whitish. Rest as well as exertion or shortness of breath. Denies any chest pain. But he had a stent placed in 1992. Has been gradually swelling over the lower extremity for the last few days. Denies any fever chills nausea vomiting. Onset: As above gradual Duration: Last few weeks Severity: Moderate Quality: Unknown Context: Possible pneumonia/congestive heart failure Exacerbating factor and relieving factors: Exertion REVIEW OF SYSTEMS: CONSTITUTIONAL : Denies fever, chills, or sweats. Denies recent illness. EENT: Denies eye, ear, throat, or mouth pain or symptoms. Denies nasal or sinus congestion or discharge. Denies throat, tongue, or mouth swelling or difficulty swallowing. CARDIOVASCULAR: Denies chest pain. Denies palpitations or racing or irregular heart beat. Denies ankle edema. RESPIRATORY: Denies cough, cold, GASTROINTESTINAL: Denies abdominal pain or distention. Denies nausea, vomiting , or diarrhea. Denies blood in vomitus, stools, or per rectum. Denies black, tarry stools. Denies constipation. GENITOURINARY: Denies difficulty urinating, painful urination, burning, frequency, blood in urine, or discharge. MUSCULOSKELETAL: Denies back or neck pain or stiffness. Denies joint pain or swelling. SKIN: Denies rash, lesions or sores. HEMATOLOGIC : Denies easy bruising or bleeding. LYMPHATIC: Denies swollen, enlarged glands. NEUROLOGICAL: Denies confusion or altered mental status. Denies passing out or loss of consciousness. Denies dizziness or lightheadedness. Denies headache. Denies weakness or paralysis or loss of use of either side. Denies problems with gait or speech. Denies sensory loss, numbness, or tingling. Denies seizures. PSYCHIATRIC: Denies anxiety or stress. Denies depression, suicidal ideation, or homicidal ideation. ALL OTHER SYSTEMS REVIEWED AND NEGATIVE. Dictation was performed using Dragon voice recognition software PHYSICAL EXAMINATION: GENERAL: Well-appearing, well-nourished and in no acute distress. HEAD: Atraumatic, normocephalic. EYES: Pupils equal round and reactive to light, extraocular movements intact, sclera anicteric, conjunctiva are normal. ENT: Nares patent, oropharynx clear without exudates. Moist mucous membranes. NECK: Normal range of motion, supple without lymphadenopathy LUNGS: Breath sounds . Decreased breath sounds diffusely over the left side, right lower half of the lung field has inspiratory rales HEART: Regular rate and rhythm without murmurs ABDOMEN: Soft, nontender, nondistended abdomen. No guarding, no rebound. No masses appreciated. Musculoskeletal: Normal range of motion, 4+ pitting edema over the lower extremities. No cyanosis. NEUROLOGICAL: Cranial nerves grossly intact. Normal speech, normal gait. Normal sensory, motor exams PSYCH: Normal mood, normal affect. SKIN: Warm, Dry, normal turgor, no rashes or lesions noted. TRAVEL OUTSIDE OF THE [place] IN LAST 30 DAYS: No - HPI Onset: Just prior to arrival Severity: Moderate Notes: Dictated - Related Data Allergies/Adverse Reactions: Penicillins Allergy (Verified 10/11/17 12:13) quinine Allergy (Verified 10/11/17 12:13) Sulfa (Sulfonamide Antibiotics) Allergy (Verified 10/11/17 12:13) Edema Past Medical History - Social History Smoking Status: Never Smoker Chew tobacco use (# tins/day): No Frequency of alcohol use: None Drug Abuse: None Lives with: Family Family History: Reviewed & Not Pertinent Patient has suicidal ideation: No Patient has homicidal ideation: No - Past Medical History Cardiac Medical History: Reports: Hx Coronary Artery Disease, Hx Hypercholesterolemia, Hx Hypertension Denies: Hx Heart Attack Pulmonary Medical History: Denies: Hx Asthma Neurological Medical History: Denies: Hx Cerebrovascular Accident, Hx Seizures Endocrine Medical History: Reports: Hx Diabetes Mellitus Type 2 Renal/ Medical History: Denies: Hx Peritoneal Dialysis GI Medical History: Reports: Hx Hiatal Hernia. Denies: Hx Hepatitis, Hx Ulcer Infectious Medical History: Denies: Hx Hepatitis Past Surgical History: Reports: Hx Cardiac Catheterization - stents, Hx Coronary Artery Bypass Graft, Hx Open Heart Surgery - CABG x1. Denies: Hx Pacemaker - Immunizations Hx Diphtheria, Pertussis, Tetanus Vaccination: No Review of Systems - Review of Systems Notes: Dictated Physical Exam - Vital signs Vitals: Temp Pulse Resp BP Pulse Ox 98.0 F 83 20 151/90 H 88 L 10/11/17 12:16 10/11/17 12:16 10/11/17 12:16 10/11/17 12:16 10/11/17 12:16 - Notes Notes: Dictated Course - Vital Signs Vital signs: Temp Pulse Resp BP Pulse Ox 98.0 F 83 20 151/90 H 93 10/11/17 12:16 10/11/17 12:16 10/11/17 12:16 10/11/17 12:16 10/11/17 12:21 Discharge - Discharge Clinical Impression: Hypoxia Congestive heart failure Qualifiers: Heart failure type: combined systolic and diastolic Heart failure chronicity: acute Qualified Code(s): I50.41 - Acute combined systolic (congestive) and diastolic (congestive) heart failure Condition: Fair Disposition: ADMITTED INPATIENT Admitting Provider: John Referrals: SAIRA FRANK MD [Primary Care Provider] - Follow up as needed
[2017-10-11] MEDS ORDERED: FUROSEMIDE INJ/PF 20 MG/2 ML SDV IV ONE (12:45)
--- NOTE | 2017-10-11 12:52 | ER Document Report ---
ED General - General Chief Complaint: Direct Admit/Private MD Stated Complaint: DIFFICULTY BREATHING/DIRECT ADMIT Time Seen by Provider: 10/11/17 12:21 Mode of Arrival: Wheelchair TRAVEL OUTSIDE OF THE [place] IN LAST 30 DAYS: No - HPI Notes: Patient is an 81-year-old male with a history of hypertension, CAD with CABG 1 , CHF, new found left lower lung malignant mass (found on PET scan yesterday) who presents to the ED per request of his family provider, Dr. Lopez/ [place], for direct admit pertaining to shortness of breath and dyspnea developing over the last few weeks. Patient states he has also noticed swelling in his lower extremities. Patient states that he does take a fluid pill daily. Patient states that activity increases his dyspnea on exertion. He has not had any noted chest pain. Patient states that he has had occasional nonproductive cough with occasional blood-tinged, but lately has been white. Patient states that he is urinating normally and having normal bowel movements. Denies any other recent illness. Denies any headache, fever, URI, sore throat , chest pain, palpitations, syncope, abdominal pain, nausea/vomiting/diarrhea, urinary retention, dysuria, hematuria, or rash. - Related Data Allergies/Adverse Reactions: Penicillins Allergy (Verified 10/11/17 12:13) quinine Allergy (Verified 10/11/17 12:13) Sulfa (Sulfonamide Antibiotics) Allergy (Verified 10/11/17 12:13) Edema Past Medical History - Social History Smoking Status: Never Smoker Chew tobacco use (# tins/day): No Frequency of alcohol use: None Drug Abuse: None Lives with: Family Family History: Reviewed & Not Pertinent Patient has suicidal ideation: No Patient has homicidal ideation: No - Past Medical History Cardiac Medical History: Reports: Hx Coronary Artery Disease, Hx Hypercholesterolemia, Hx Hypertension Denies: Hx Heart Attack Pulmonary Medical History: Denies: Hx Asthma Neurological Medical History: Denies: Hx Cerebrovascular Accident, Hx Seizures Endocrine Medical History: Reports: Hx Diabetes Mellitus Type 2 Renal/ Medical History: Denies: Hx Peritoneal Dialysis GI Medical History: Reports: Hx Hiatal Hernia. Denies: Hx Hepatitis, Hx Ulcer Infectious Medical History: Denies: Hx Hepatitis Past Surgical History: Reports: Hx Cardiac Catheterization - stents, Hx Coronary Artery Bypass Graft, Hx Open Heart Surgery - CABG x1. Denies: Hx Pacemaker - Immunizations Hx Diphtheria, Pertussis, Tetanus Vaccination: No Review of Systems - Review of Systems -: Yes All other systems reviewed and negative Physical Exam - Vital signs Vitals: Temp Pulse Resp BP Pulse Ox 98.0 F 83 20 151/90 H 88 L 10/11/17 12:16 10/11/17 12:16 10/11/17 12:16 10/11/17 12:16 10/11/17 12:16 - Notes Notes: PHYSICAL EXAMINATION: GENERAL: Well-appearing, well-nourished and in mild acute resp distress, improved with O2 via NC. HEAD: Atraumatic, normocephalic. EYES: Pupils equal round and reactive to light, extraocular movements intact, sclera anicteric, conjunctiva are normal. ENT: Nares patent and without discharge. oropharynx clear without exudates. No tonsilar hypertrophy or erythema. Moist mucous membranes. NECK: Normal range of motion, supple without lymphadenopathy LUNGS: Dec breath sounds b/l, for > in the LLL. + mild wheezing b/l. No retractions. HEART: Regular rate and rhythm without murmurs, rubs, gallops. ABDOMEN: Soft, nontender, nondistended abdomen. No guarding, no rebound. No masses appreciated. Normal bowel sounds present. No CVA tenderness bilaterally. Musculoskeletal: FROM to passive/active. Strength 5+/5. Patricia neg. No asymmetry to LE's. Extremities: 2+ pitting edema b/l LE's. Peripheral pulses 2+. Capillary refill less than 3 seconds. NEUROLOGICAL: Normal speech, normal gait. PSYCH: Normal mood, normal affect. SKIN: Warm, Dry, normal turgor, no rashes or lesions noted. Course - Re-evaluation Re-evalutation: 10/11/17 12:[address] Lopez, patient will be a direct admit. I did order basic labs for the patient at this time as well as IV Lasix. Heart rate is currently 112 with a pulse ox of 94% on 2 L. Blood pressure is 103/82. Admit orders are already placed so admission has been accepted per the direct admit. Patient is in agreement with this plan as well as the family. - Vital Signs Vital signs: Temp Pulse Resp BP Pulse Ox 98.0 F 83 20 151/90 H 93 10/11/17 12:16 10/11/17 12:16 10/11/17 12:16 10/11/17 12:16 10/11/17 12:21 Discharge - Discharge Clinical Impression: Hypoxia Congestive heart failure Qualifiers: Heart failure type: combined systolic and diastolic Heart failure chronicity: acute Qualified Code(s): I50.41 - Acute combined systolic (congestive) and diastolic (congestive) heart failure Condition: Fair Disposition: ADMITTED INPATIENT Admitting Provider: John Unit Admitted: IMCU Referrals: SAIRA FRANK MD [Primary Care Provider] - Follow up as needed
--- NOTE | 2017-10-11 13:19 | RADIOLOGY REPORT (SQ) ---
EXAM DESCRIPTION: CHEST SINGLE VIEW COMPLETED DATE/TIME: 10/11/2017 1:09 pm REASON FOR STUDY: SOB COMPARISON: 09/12/2017 CT. Radiographs from 2017. PET-CT from 10/10/2017. NUMBER OF VIEWS: One view. TECHNIQUE: Single frontal radiographic view of the chest acquired. LIMITATIONS: None. FINDINGS: LUNGS AND PLEURA: No pneumothorax. Extensive airspace disease throughout the lower half o f the left lung once again noted. Some of this opacity reflects pleural fluid. Interstitial promine nce and vascular congestion persists in the right lung. Appearance looks similar to recent PET and C T studies. MEDIASTINUM AND HILAR STRUCTURES: Grossly stable contours. HEART AND VASCULAR STRUCTURES: Limited assessment. Heart looks stable. BONES: No acute findings. HARDWARE: None in the chest. OTHER: No other significant finding. IMPRESSION: Extensive left consolidation and pleural fluid, similar to recent PET and CT studies. TECHNICAL DOCUMENTATION: JOB ID: [id number] [employer]- All Rights Reserved Reading location - IP/workstation name: [email or web address]
[2017-10-11 13:58] LABS: VENOUS BLOOD BASE EXCESS 4.5 mmol/L; VENOUS BLOOD HCO3 29.5 mmol/L (20-32); VENOUS BLOOD PCO2 45.3 mmHg (35-63); VENOUS BLOOD PH 7.43 (7.30-7.42)
[2017-10-11 14:01] LABS: ABSOLUTE BASOPHILS # (AUTO) 0.1 10^3/uL (0.0-0.2); ABSOLUTE EOSINOPHILS # (AUTO) 0.1 10^3/uL (0.0-0.6); ABSOLUTE LYMPHOCYTES (AUTO) 0.9 10^3/uL (0.5-4.7); ABSOLUTE MONOCYTES (AUTO) 0.6 10^3/uL (0.1-1.4); ABSOLUTE NEUT (AUTO) 8.7 10^3/uL (1.7-8.2); BASOPHILS % (AUTO) 0.7 % (0-2); EOSINOPHILS % (AUTO) 1.2 % (0-6); HEMATOCRIT 31.4 % (37.9-51.0); HEMOGLOBIN 10.3 g/dL (13.5-17.0); LYMPHOCYTES % (AUTO) 8.7 % (13-45); MEAN CORPUSCULAR HEMOGLOBIN 26.7 pg (27.0-33.4); MEAN CORPUSCULAR HGB CONC 32.7 g/dL (32.0-36.0); MEAN CORPUSCULAR VOLUME 82 fl (80-97); MONOCYTES % (AUTO) 5.8 % (3-13); PLATELET COUNT 321 10^3/uL (150-450); RED BLOOD COUNT 3.85 10^6/uL (4.35-5.55); RED CELL DISTRIBUTION WIDTH 16.5 % (11.5-14.0); SEGMENTED NEUTROPHILS % (AUTO) 83.6 % (42-78); TOTAL CELLS COUNTED % (AUTO) 100 %; WHITE BLOOD COUNT 10.4 10^3/uL (4.0-10.5)
[2017-10-11 14:03] LABS: INTERNATIONAL RATION (INR) 1.12; PARTIAL THROMBOPLASTIN TIME 36.6 SEC (23.5-35.8)
[2017-10-11 14:21] LABS: ALANINE AMINOTRANSFERASE 23 U/L (21-72); ALBUMIN 3.1 g/dL (3.5-5.0); ALKALINE PHOSPHATASE 96 U/L (38-126); ANION GAP 14 (5-19); ASPARTATE AMINO TRANSFERASE 24 U/L (17-59); BILIRUBIN,DIRECT 0.4 mg/dL (0.0-0.4); BILIRUBIN,TOTAL 0.5 mg/dL (0.2-1.3); BLOOD UREA NITROGEN 25 mg/dL (7-20); CALCIUM 8.5 mg/dL (8.4-10.2); CARBON DIOXIDE 28 mmol/L (22-30); CHLORIDE 96 mmol/L (98-107); CREATINE KINASE 115 U/L (55-170); GLUCOSE 163 mg/dL (75-110); POTASSIUM 4.2 mmol/L (3.6-5.0); SODIUM 137.9 mmol/L (137-145); TOTAL PROTEIN 6.4 g/dL (6.3-8.2)
[2017-10-11 14:59] LABS: TROPONIN I 0.014 ng/mL
--- NOTE | 2017-10-11 17:15 | PDOC CONSULTATION ---
Consultation Consult Date: 10/11/17 Attending physician:: JAKE CAMARENA Consult reason:: new LLL lung mass w/ pleural effusion History of Present Illness Admission Date/PCP: 10/11/17 13:09 JAKE CAMARENA MD Patient complains of: worsening SOB, cough History of Present Illness: NANCY VALDES is a 81 year old male who I was seeing as outpt for anemia and recently had c/o of increasing hemoptysis and cough, he went to his PCP who did CT chest which indicated a 8cm LLL lung mass, we saw him last week and ordered PET CT which indicated L hilar mass 4.5 cm SUV 9, multiple mediastinal LN largest prevas 4.5cm, and moderate sized L pleural effusion, no other distant disease. He was admitted b/c of continued hypoxia and worsening respiratory status. Past Medical History Cardiac Medical History: Reports: Coronary Artery Disease, Hyperlipidema, Hypertension Denies: Myocardial Infarction Pulmonary Medical History: Denies: Asthma Neurological Medical History: Denies: Seizures Endocrine Medical History: Reports: Diabetes Mellitus Type 2 GI Medical History: Reports: Hiatal Hernia Denies: Hepatitis Hematology: Reports: Anemia - hx borderline Denies: Sickle Cell Disease Past Surgical History Past Surgical History: Reports: Cardiac Catheterization - stents, Coronary Artery Bypass Graft Denies: Pacemaker Social History Information Source: Patient Lives with: Family Smoking Status: Former Smoker Cigarettes Packs Per Day: 1 Number of Years Smokin Frequency of Alcohol Use: None Hx Recreational Drug Use: No Hx Prescription Drug Abuse: No - Advance Directive Resuscitation Status: Full Code Family History Family History: Reviewed & Not Pertinent Parental Family History Reviewed: Yes Children Family History Reviewed: Yes Sibling(s) Family History Reviewed.: Yes Medication/Allergy Home Medications: Amitriptyline HCl [Elavil 25 mg Tablet] 25 mg PO TIDP PRN 10/11/17 Amlodipine Besylate [Norvasc 10 mg Tablet] 10 mg PO DAILY 10/11/17 Ascorbic Acid [Vitamin C 500 mg Tablet] 500 mg PO TID 10/11/17 Aspirin [Aspirin EC] 81 mg PO DAILY 10/11/17 Benzonatate [Tessalon Perle 100 mg Capsule] 100 mg PO Q8HP PRN 10/11/17 Bumetanide [Bumex 1 mg Tablet] 1 mg PO DAILY 10/11/17 Dicyclomine HCl [Bentyl 10 mg Capsule] 10 mg PO QID 10/11/17 Doxycycline Hyclate [Vibramycin] 100 mg PO BID 10/11/17 Ferrous Sulfate [Feosol 325 mg Tablet] 325 mg PO TID 10/11/17 Furosemide [Lasix 40 mg Tablet] 40 mg PO DAILY 10/11/17 Guaifenesin [Mucinex] 600 mg PO Q12HP PRN 10/11/17 Insulin Aspart [Novolog Flexpen] 10 unit SQ TID 10/11/17 Insulin Degludec [Tresiba Flextouch U-100] 25 unit SQ DAILY 10/11/17 Insulin Detemir [Levemir Flextouch] 20 unit SQ QHS 10/11/17 Insulin Glargine,Hum.rec.anlog [Lantus Solostar] 25 unit SQ QHS 10/11/17 Ipratropium/Albuterol Sulfate [Combivent Respimat Inhal [place]] 2 puff IH QID Lisinopril [Prinivil] 20 mg PO DAILY 10/11/17 Metformin HCl [Glucophage] 1,000 mg PO BID 10/11/17 Metoprolol Tartrate [Lopressor 50 mg Tablet] 50 mg PO Q12 10/11/17 Simvastatin [Zocor 40 mg Tablet] 40 mg PO QPM 10/11/17 Allergies/Adverse Reactions: Penicillins Allergy (Verified 10/11/17 12:13) quinine Allergy (Verified 10/11/17 12:13) Sulfa (Sulfonamide Antibiotics) Allergy (Verified 10/11/17 12:13) Edema Review of Systems Constitutional: PRESENT: fatigue, weakness, weight loss Cardiovascular: PRESENT: chest pain, dyspnea on exertion Gastrointestinal: ABSENT: abdominal pain, constipation, diarrhea, hematemesis, hematochezia, nausea, vomiting Integumentary: PRESENT: diaphoresis Neurological: ABSENT: abnormal gait, abnormal speech, confusion, dizziness, focal weakness, syncope Physical Exam Vital Signs: Temp Pulse Resp BP Pulse Ox 98.0 F 83 19 143/91 H 92 10/11/17 12:16 10/11/17 12:16 10/11/17 14:02 10/11/17 14:02 10/11/17 14:02 General appearance: PRESENT: no acute distress, well-developed, well-nourished Head exam: PRESENT: atraumatic, normocephalic Eye exam: PRESENT: conjunctiva pink, EOMI, PERRLA. ABSENT: scleral icterus Ear exam: PRESENT: normal external ear exam Mouth exam: PRESENT: moist, tongue midline Neck exam: ABSENT: carotid bruit, JVD, lymphadenopathy, thyromegaly Respiratory exam: PRESENT: clear to auscultation ferny. ABSENT: rales, rhonchi, wheezes Cardiovascular exam: PRESENT: RRR. ABSENT: diastolic murmur, rubs, systolic murmur Pulses: PRESENT: normal dorsalis pedis pul Vascular exam: PRESENT: normal capillary refill GI/Abdominal exam: PRESENT: normal bowel sounds, soft. ABSENT: distended, guarding, mass, organolmegaly, rebound, tenderness Rectal exam: PRESENT: deferred Extremities exam: PRESENT: full ROM. ABSENT: calf tenderness, clubbing, pedal edema Neurological exam: PRESENT: alert, awake, oriented to person, oriented to place , oriented to time, oriented to situation, CN II-XII grossly intact. ABSENT: motor sensory deficit Psychiatric exam: PRESENT: appropriate affect, normal mood. ABSENT: homicidal ideation, suicidal ideation Skin exam: PRESENT: dry, intact, warm. ABSENT: cyanosis, rash Results Laboratory Results: 10/11/17 13:20 10/11/17 13:20 10/11/17 10/11/17 10/11/17 13:20 13:20 13:20 WBC 10.4 RBC 3.85 L Hgb 10.3 L Hct 31.4 L MCV 82 MCH 26.7 L MCHC 32.7 RDW 16.5 H Plt Count 321 Seg Neutrophils % 83.6 H Lymphocytes % 8.7 L Monocytes % 5.8 Eosinophils % 1.2 Basophils % 0.7 Absolute Neutrophils 8.7 H Absolute Lymphocytes 0.9 Absolute Monocytes 0.6 Absolute Eosinophils 0.1 Absolute Basophils 0.1 Sodium 137.9 Potassium 4.2 Chloride 96 L Carbon Dioxide 28 Anion Gap 14 BUN 25 H Creatinine 1.65 H Est GFR ( Amer) 48 L Est GFR (Non-Af Amer) 40 L Glucose 163 H Lactic Acid 2.0 Calcium 8.5 Total Bilirubin 0.5 AST 24 ALT 23 Alkaline Phosphatase 96 Total Protein 6.4 Albumin 3.1 L 10/11/17 10/11/17 13:20 13:20 Creatine Kinase 115 Troponin I 0.014 NT-Pro-B Natriuret Pep 7010 H Impressions: Chest X-Ray 10/11/17 12:35 IMPRESSION: Extensive left consolidation and pleural fluid, similar to recent PET and CT studies. Status: Image reviewed by me Assessment & Plan - Diagnosis (1) Pleural effusion Is this a current diagnosis for this admission?: Yes Plan: L pleural effusion, concerning for malignant pleural effusion, plan therapeutic and diagnostic thoracentesis. (2) Lung mass Is this a current diagnosis for this admission?: Yes Plan: L lung mass, mediastinal LAD overall concerning for primary lung ca, will discuss w/ Dr. Elkins pulmonology to see if bronch would be possible while inpt. - Time Time Spent: Greater than 70 Minutes - Inpatient Certification Based on my medical assessment, after consideration of the patient's comorbidities, presenting symptoms, or acuity I expect that the services needed warrant INPATIENT care.: Yes I certify that my determination is in accordance with my understanding of Medicare's requirements for reasonable and necessary INPATIENT services [42 CFR 412.3e].: Yes Medical Necessity: Need for Nebulizer Therapy and Monitoring of Response, Need for Surgery
[2017-10-11] MEDS ORDERED: GLUCAGON,HUMAN RECOMB 1 MG INJ IM PRN (18:13)
[2017-10-11] MEDS ORDERED: DEXTROSE 50%-WATER SYRINGE 25 GM/50 ML DOSE IV PRN (18:13)
[2017-10-11] MEDS ORDERED: DEXTROSE 40% GEL 15 GM TUBE X 2 PO PRN (18:13)
[2017-10-11] MEDS ORDERED: DEXTROSE 50%-WATER SYRINGE 12.5 GM/25 ML DOSE IV PRN (18:13)
[2017-10-11] MEDS ORDERED: DEXTROSE 40% GEL 15 GM TUBE PO PRN (18:13)
[2017-10-11 18:18] LABS: APPEARANCE,URINE CLEAR; BILIRUBIN,URINE NEGATIVE (NEGATIVE); COLOR,URINE YELLOW; GLUCOSE, URINE 50 mg/dL (NEGATIVE); KETONES,URINE NEGATIVE (NEGATIVE); LEUKOCYTE ESTERASE,URINE NEGATIVE (NEGATIVE); NITRITE,URINE NEGATIVE (NEGATIVE); PROTEIN,URINE >=500 mg/dL (NEGATIVE); URINE SPECIFIC GRAVITY 1.012; UROBILINOGEN,URINE NEGATIVE mg/dL (<2.0)
[2017-10-11] MEDS: INSULIN LISPRO 100 UNIT/ML 3 ML VIAL SUBCUT PRN ×2 (18:44→21:57)
--- NOTE | 2017-10-11 19:26 | EKG REPORT ---
SEVERITY:- ABNORMAL ECG - ATRIAL FIBRILLATION PROLONGED QT INTERVAL NONSPECIFIC ST-T CHANGES- LATERAL LEADS : Confirmed by: Henrique Grimm MD 11-Oct-2017 19:25:55
[2017-10-11] MEDS: LEVOFLOXACIN 500 MG/D5W RTU 500 MG/100 ML RTUPB IV SCH (20:02)
[2017-10-11] MEDS: SIMVASTATIN 40 MG TABLET PO SCH (21:54)
[2017-10-11] MEDS: INSULIN DETEMIR 100 UNIT/ML 3 ML PEN SUBCUT SCH (21:54)
[2017-10-12] MEDS ORDERED: HYDRALAZINE HCL INJ/PF 20 MG/1 ML SDV IV ONE (03:45)
[2017-10-12] MEDS: METFORMIN HCL 500 MG TABLET PO SCH ×2 (08:42→17:34)
[2017-10-12] MEDS: INSULIN LISPRO 100 UNIT/ML 3 ML VIAL SUBCUT PRN ×4 (08:43→21:25)
--- NOTE | 2017-10-12 08:45 | PDOC PROGRESS REPORT ---
Subjective Progress Note for:: 10/12/17 Subjective:: Today had a long discussion with son who is at bedside and explained current status of disease, plan for thoracentesis today. Reason For Visit: PLEURAL EFFUSION, PNEUMONIA Physical Exam Vital Signs: Temp Pulse Resp BP Pulse Ox 97.9 F 134 H 16 160/78 H 92 10/12/17 03:17 10/12/17 03:17 10/12/17 03:17 10/12/17 03:23 10/12/17 03:17 Intake & Output 10/11/17 10/12/17 10/13/17 06:59 06:59 06:59 Intake Total 675 100 Output Total 1075 Balance -400 100 Weight 70.8 kg General appearance: PRESENT: no acute distress, well-developed, well-nourished Head exam: PRESENT: atraumatic, normocephalic Eye exam: PRESENT: conjunctiva pink, EOMI, PERRLA. ABSENT: scleral icterus Ear exam: PRESENT: normal external ear exam Mouth exam: PRESENT: moist, tongue midline Neck exam: ABSENT: carotid bruit, JVD, lymphadenopathy, thyromegaly Respiratory exam: PRESENT: clear to auscultation ferny. ABSENT: rales, rhonchi, wheezes Cardiovascular exam: PRESENT: RRR. ABSENT: diastolic murmur, rubs, systolic murmur Pulses: PRESENT: normal dorsalis pedis pul Vascular exam: PRESENT: normal capillary refill GI/Abdominal exam: PRESENT: normal bowel sounds, soft. ABSENT: distended, guarding, mass, organolmegaly, rebound, tenderness Rectal exam: PRESENT: deferred Extremities exam: PRESENT: full ROM. ABSENT: calf tenderness, clubbing, pedal edema Neurological exam: PRESENT: alert, awake, oriented to person, oriented to place , oriented to time, oriented to situation, CN II-XII grossly intact. ABSENT: motor sensory deficit Psychiatric exam: PRESENT: appropriate affect, normal mood. ABSENT: homicidal ideation, suicidal ideation Skin exam: PRESENT: dry, intact, warm. ABSENT: cyanosis, rash Results Laboratory Results: 10/11/17 13:20 10/11/17 13:20 10/11/17 10/11/17 10/11/17 13:20 13:20 13:20 WBC 10.4 RBC 3.85 L Hgb 10.3 L Hct 31.4 L MCV 82 MCH 26.7 L MCHC 32.7 RDW 16.5 H Plt Count 321 Seg Neutrophils % 83.6 H Lymphocytes % 8.7 L Monocytes % 5.8 Eosinophils % 1.2 Basophils % 0.7 Absolute Neutrophils 8.7 H Absolute Lymphocytes 0.9 Absolute Monocytes 0.6 Absolute Eosinophils 0.1 Absolute Basophils 0.1 Sodium 137.9 Potassium 4.2 Chloride 96 L Carbon Dioxide 28 Anion Gap 14 BUN 25 H Creatinine 1.65 H Est GFR ( Amer) 48 L Est GFR (Non-Af Amer) 40 L Glucose 163 H Lactic Acid 2.0 Calcium 8.5 Total Bilirubin 0.5 AST 24 ALT 23 Alkaline Phosphatase 96 Total Protein 6.4 Albumin 3.1 L Urine Color Urine Appearance Urine pH Ur Specific [place] Urine Protein Urine Glucose (UA) Urine Ketones Urine Blood Urine Nitrite Ur Leukocyte Esterase Urine WBC (Auto) Urine RBC (Auto) 10/11/17 14:40 WBC RBC Hgb Hct MCV MCH MCHC RDW Plt Count Seg Neutrophils % Lymphocytes % Monocytes % Eosinophils % Basophils % Absolute Neutrophils Absolute Lymphocytes Absolute Monocytes Absolute Eosinophils Absolute Basophils Sodium Potassium Chloride Carbon Dioxide Anion Gap BUN Creatinine Est GFR ( Amer) Est GFR (Non-Af Amer) Glucose Lactic Acid Calcium Total Bilirubin AST ALT Alkaline Phosphatase Total Protein Albumin Urine Color YELLOW Urine Appearance CLEAR Urine pH 7.0 Ur Specific [place] 1.012 Urine Protein >=500 H Urine Glucose (UA) 50 H Urine Ketones NEGATIVE Urine Blood NEGATIVE Urine Nitrite NEGATIVE Ur Leukocyte Esterase NEGATIVE Urine WBC (Auto) 1 Urine RBC (Auto) 0 10/11/17 10/11/17 10/11/17 13:20 13:20 16:55 Creatine Kinase 115 Troponin I 0.014 < 0.012 NT-Pro-B Natriuret Pep 7010 H Impressions: Chest X-Ray 10/11/17 12:35 IMPRESSION: Extensive left consolidation and pleural fluid, similar to recent PET and CT studies. Assessment & Plan - Diagnosis (1) Pleural effusion Is this a current diagnosis for this admission?: Yes Plan: Likely going to be malignant, plan for thoracentesis today. (2) Lung mass Is this a current diagnosis for this admission?: Yes Plan: Plan for thoracentesis hopeful diagnosis and therapeutic benefit, had long discussion with son today, spent greater than 45 minutes in discussion.
[2017-10-12] MEDS ORDERED: AMLODIPINE BESYLATE 10 MG TABLET PO SCH (10:00)
[2017-10-12] MEDS ORDERED: DILTIAZEM HCL INJ 25 MG/5 ML VIAL IV ONE (10:00)
--- NOTE | 2017-10-12 10:05 | RADIOLOGY REPORT (SQ) ---
EXAM DESCRIPTION: CHEST SINGLE VIEW COMPLETED DATE/TIME: 10/12/2017 9:58 am REASON FOR STUDY: S/P LEFT THORACENTESIS COMPARISON: 10/11/2017 EXAM PARAMETERS: NUMBER OF VIEWS: One view. TECHNIQUE: Single frontal radiographic view of the chest acquired. RADIATION DOSE: NA LIMITATIONS: None. FINDINGS: LUNGS AND PLEURA: Left-sided pleural effusion is smaller following thoracentesis. No pneu mothorax. Minimal right basilar atelectasis remains. MEDIASTINUM AND HILAR STRUCTURES: No masses. Contour normal. HEART AND VASCULAR STRUCTURES: Stable in appearance. BONES: No acute findings. HARDWARE: Sternotomy wires are in place. OTHER: No other significant finding. IMPRESSION: No pneumothorax following left-sided thoracentesis. TECHNICAL DOCUMENTATION: JOB ID: [id number] [employer]- All Rights Reserved Reading location - IP/workstation name: [email or web address]
--- NOTE | 2017-10-12 10:17 | RADIOLOGY REPORT (SQ) ---
EXAM DESCRIPTION: U/S THORACENTESIS WITH IMAGING COMPLETED DATE/TIME: 10/12/2017 10:07 am REASON FOR STUDY: Left pleural effusion COMPARISON: PET-CT 10/10/2017 Chest film 10/11/2017 LIMITATIONS: None. PROCEDURE: Procedure, risks, benefit, and alternative explained to patient who then gave written con sent. The posterior left chest wall was marked using ultrasound guidance. A time-out was called for correct marking verification. Chest prepped and draped using sterile technique. Local anesthesia ac hieved using 4.5 ml of 1% lidocaine injection. A 6fr Safe-T- Centesis set was introduced into the le ft pleural space. Fluid was aspirated. The catheter was removed and the entry site was covered with sterile bandage. No immediate complications noted. Fluid was sent for testing as per Dr. Mccain Images acquired during the procedure were stored on PACS. FINDINGS: ENTRY SITE: posterior left chest. FLUID VOLUME: 1100 mL FLUID ANALYSIS: Clear jerson colored fluid OTHER: Yes, sent for testing IMPRESSION: SUCCESSFUL THORACENTESIS USING ULTRASOUND GUIDANCE. COMMENT: Patient medication list reviewed: Yes- Quality ID# [id number]:Eligible professional attests to doc umenting in the medical record they obtained, updated, or reviewed the patient's current medications. TECHNICAL DOCUMENTATION: JOB ID: [id number] [employer]- All Rights Reserved Reading location - IP/workstation name: [email or web address]
[2017-10-12] MEDS: FUROSEMIDE INJ/PF 40 MG/4 ML SDV IV SCH (10:25)
[2017-10-12] MEDS: NITROGLYCERIN 10 MG (0.4 MG/HR) PATCH.TD24 TD SCH (10:26)
[2017-10-12] MEDS: LISINOPRIL 10 MG TABLET PO SCH (10:26)
[2017-10-12] MEDS: HYDRALAZINE HCL 25 MG TABLET PO SCH ×2 (10:26→21:24)
[2017-10-12] MEDS: DILTIAZEM HCL/D5W 125 MG/125 ML RTUINJ IV PRN (11:39)
[2017-10-12 11:53] LABS: FLUID APPEARANCE SLIGHTLY HAZY; FLUID COLOR YELLOW; FLUID SOURCE LUNG; FLUID TYPE PLEURAL; FLUID VISCOSITY LIQUID
[2017-10-12] MEDS ORDERED: IPRATROPIUM/ALBUTEROL 0.5-2.5 MG/3 ML AMPUL NEB SCH (12:00)
[2017-10-12 12:13] LABS: CREATINE KINASE MB 2.23 ng/mL (<4.55)
[2017-10-12 12:20] LABS: TROPONIN I < 0.012 ng/mL
[2017-10-12] MEDS: LEVALBUTEROL HCL NEB 1.25 MG/3 ML AMPUL NEB SCH ×3 (12:42→19:44)
--- NOTE | 2017-10-12 12:53 | RADIOLOGY REPORT (SQ) ---
EXAM DESCRIPTION: CHEST SINGLE VIEW COMPLETED DATE/TIME: 10/12/2017 12:29 pm REASON FOR STUDY: 2 HOURS S/P LEFT THORACENTESIS COMPARISON: 10/12/2017 at 0955 hours. EXAM PARAMETERS: NUMBER OF VIEWS: One view. TECHNIQUE: Single frontal radiographic view of the chest acquired. RADIATION DOSE: NA LIMITATIONS: None. FINDINGS: LUNGS AND PLEURA: No pneumothorax following thoracentesis. MEDIASTINUM AND HILAR STRUCTURES: No masses. Contour normal. HEART AND VASCULAR STRUCTURES: Cardiomegaly. Vascular congestion. BONES: No acute findings. HARDWARE: Sternotomy wires. OTHER: No other significant finding. IMPRESSION: NO CHANGE IN APPEARANCE OF THE CHEST. NO PNEUMOTHORAX FOLLOWING THORACENTESIS. TECHNICAL DOCUMENTATION: JOB ID: [id number] [employer]- All Rights Reserved Reading location - IP/workstation name: [email or web address]
--- NOTE | 2017-10-12 14:22 | EKG REPORT ---
SEVERITY:- ABNORMAL ECG - SINUS TACHYCARDIA PROBABLE LVH WITH SECONDARY REPOL ABNRM PROLONGED QT INTERVAL : Confirmed by: Henrique Grimm MD 12-Oct-2017 14:21:23
[2017-10-12 16:27] LABS: CREATINE KINASE MB 2.52 ng/mL (<4.55); TROPONIN I 0.016 ng/mL
--- NOTE | 2017-10-12 16:27 | PDOC H&P ---
History of Present Illness Admission Date/PCP: 10/11/17 13:09 JAKE CAMARENA MD Patient complains of: Patient presents with progressive shortness of breath, cough, orthopnea, leg edema. History of Present Illness: NANCY VALDES is a 81 year old male has presented for approximately a month and a half had hemoptysis, at that time put on a course of antibiotics. He had a discontinuation of his Plavix a CT was done which showed a mass in the left chest region. Patient's medications were adjusted was seen by oncologist but he showed continued shortness of breath, orthopnea, dyspnea on exertion, so due to the failure of outpatient therapy was felt better to admit for thoracentesis and possible biopsying. Past Medical History Cardiac Medical History: Reports: Congestive Heart Failure, Coronary Artery Disease, Hyperlipidema, Hypertension Denies: Myocardial Infarction Pulmonary Medical History: Reports: Chronic Obstructive Pulmonary Disease (COPD) Denies: Asthma Neurological Medical History: Denies: Seizures Endocrine Medical History: Reports: Diabetes Mellitus Type 2 Renal/ Medical History: Reports: Chronic Kidney Disease Malignancy Medical History: Reports: Lung Cancer GI Medical History: Reports: Hiatal Hernia Denies: Hepatitis Hematology: Reports: Anemia - hx borderline Denies: Sickle Cell Disease Past Surgical History Past Surgical History: Reports: Cardiac Catheterization - stents, Coronary Artery Bypass Graft Denies: Pacemaker Social History Lives with: Family Smoking Status: Former Smoker Cigarettes Packs Per Day: 1 Number of Years Smokin Frequency of Alcohol Use: None Hx Recreational Drug Use: No Hx Prescription Drug Abuse: No - Advance Directive Resuscitation Status: Full Code Family History Family History: Reviewed & Not Pertinent Parental Family History Reviewed: Yes Children Family History Reviewed: Yes Sibling(s) Family History Reviewed.: Yes Medication/Allergy Home Medications: Amitriptyline HCl [Elavil 25 mg Tablet] 25 mg PO TIDP PRN 10/11/17 Amlodipine Besylate [Norvasc 10 mg Tablet] 10 mg PO DAILY 10/11/17 Ascorbic Acid [Vitamin C 500 mg Tablet] 500 mg PO TID 10/11/17 Aspirin [Aspirin EC] 81 mg PO DAILY 10/11/17 Benzonatate [Tessalon Perle 100 mg Capsule] 100 mg PO Q8HP PRN 10/11/17 Bumetanide [Bumex 1 mg Tablet] 1 mg PO DAILY 10/11/17 Dicyclomine HCl [Bentyl 10 mg Capsule] 10 mg PO QID 10/11/17 Doxycycline Hyclate [Vibramycin] 100 mg PO BID 10/11/17 Ferrous Sulfate [Feosol 325 mg Tablet] 325 mg PO TID 10/11/17 Furosemide [Lasix 40 mg Tablet] 40 mg PO DAILY 10/11/17 Guaifenesin [Mucinex] 600 mg PO Q12HP PRN 10/11/17 Insulin Aspart [Novolog Flexpen] 10 unit SQ TID 10/11/17 Insulin Degludec [Tresiba Flextouch U-100] 25 unit SQ DAILY 10/11/17 Insulin Detemir [Levemir Flextouch] 20 unit SQ QHS 10/11/17 Insulin Glargine,Hum.rec.anlog [Lantus Solostar] 25 unit SQ QHS 10/11/17 Ipratropium/Albuterol Sulfate [Combivent Respimat Inhal [place]] 2 puff IH QID Lisinopril [Prinivil] 20 mg PO DAILY 10/11/17 Metformin HCl [Glucophage] 1,000 mg PO BID 10/11/17 Metoprolol Tartrate [Lopressor 50 mg Tablet] 50 mg PO Q12 10/11/17 Simvastatin [Zocor 40 mg Tablet] 40 mg PO QPM 10/11/17 Allergies/Adverse Reactions: Penicillins Allergy (Verified 10/11/17 12:13) quinine Allergy (Verified 10/11/17 12:13) Sulfa (Sulfonamide Antibiotics) Allergy (Verified 10/11/17 12:13) Edema Review of Systems Constitutional: PRESENT: anorexia, weight gain Eyes: ABSENT: visual disturbances Ears: ABSENT: hearing changes Cardiovascular: PRESENT: dyspnea on exertion, palpitations Respiratory: PRESENT: cough, dyspnea, hemoptysis, sputum Gastrointestinal: ABSENT: abdominal pain, constipation, diarrhea, hematemesis, hematochezia, nausea, vomiting Genitourinary: ABSENT: dysuria, hematuria Musculoskeletal: ABSENT: joint swelling Neurological: ABSENT: abnormal gait, abnormal speech, confusion, dizziness, focal weakness, syncope Psychiatric: ABSENT: anxiety, depression, homidical ideation, suicidal ideation Endocrine: ABSENT: cold intolerance, heat intolerance, menstrual abnormalities, polydipsia, polyuria Hematologic/Lymphatic: ABSENT: easy bleeding, easy bruising, lymphadenopathy Physical Exam Vital Signs: Temp Pulse Resp BP Pulse Ox 98.1 F 139 H 16 157/72 H 97 10/12/17 07:33 10/12/17 07:33 10/12/17 03:17 10/12/17 07:33 10/12/17 07:33 Intake & Output 10/11/17 10/12/17 10/13/17 06:59 06:59 06:59 Intake Total 675 300 Output Total 1075 Balance -400 300 Weight 70.8 kg 96.6 kg General appearance: PRESENT: mild distress Head exam: PRESENT: atraumatic, normocephalic Eye exam: PRESENT: conjunctiva pink, EOMI, PERRLA. ABSENT: scleral icterus Ear exam: PRESENT: normal external ear exam Mouth exam: PRESENT: moist, tongue midline Neck exam: PRESENT: full ROM. ABSENT: carotid bruit, JVD, lymphadenopathy, thyromegaly Respiratory exam: PRESENT: decreased breath sounds, rhonchi Cardiovascular exam: PRESENT: tachycardia Pulses: PRESENT: normal dorsalis pedis pul, +2 pedal pulses bilateral Vascular exam: PRESENT: normal capillary refill GI/Abdominal exam: PRESENT: normal bowel sounds, soft. ABSENT: distended, guarding, mass, organolmegaly, rebound, tenderness Rectal exam: PRESENT: deferred Extremities exam: PRESENT: pedal edema Musculoskeletal exam: PRESENT: ambulatory Neurological exam: PRESENT: alert, awake, oriented to person, oriented to place , oriented to time, oriented to situation, CN II-XII grossly intact. ABSENT: motor sensory deficit Psychiatric exam: PRESENT: appropriate affect, normal mood. ABSENT: homicidal ideation, suicidal ideation Skin exam: PRESENT: dry, intact, warm. ABSENT: cyanosis, rash Results Laboratory Results: 10/11/17 13:20 10/11/17 13:20 10/11/17 10/11/17 10/11/17 13:20 13:20 13:20 WBC 10.4 RBC 3.85 L Hgb 10.3 L Hct 31.4 L MCV 82 MCH 26.7 L MCHC 32.7 RDW 16.5 H Plt Count 321 Seg Neutrophils % 83.6 H Lymphocytes % 8.7 L Monocytes % 5.8 Eosinophils % 1.2 Basophils % 0.7 Absolute Neutrophils 8.7 H Absolute Lymphocytes 0.9 Absolute Monocytes 0.6 Absolute Eosinophils 0.1 Absolute Basophils 0.1 Sodium 137.9 Potassium 4.2 Chloride 96 L Carbon Dioxide 28 Anion Gap 14 BUN 25 H Creatinine 1.65 H Est GFR ( Amer) 48 L Est GFR (Non-Af Amer) 40 L Glucose 163 H Lactic Acid 2.0 Calcium 8.5 Total Bilirubin 0.5 AST 24 ALT 23 Alkaline Phosphatase 96 Total Protein 6.4 Albumin 3.1 L Urine Color Urine Appearance Urine pH Ur Specific [place] Urine Protein Urine Glucose (UA) Urine Ketones Urine Blood Urine Nitrite Ur Leukocyte Esterase Urine WBC (Auto) Urine RBC (Auto) 10/11/17 14:40 WBC RBC Hgb Hct MCV MCH MCHC RDW Plt Count Seg Neutrophils % Lymphocytes % Monocytes % Eosinophils % Basophils % Absolute Neutrophils Absolute Lymphocytes Absolute Monocytes Absolute Eosinophils Absolute Basophils Sodium Potassium Chloride Carbon Dioxide Anion Gap BUN Creatinine Est GFR ( Amer) Est GFR (Non-Af Amer) Glucose Lactic Acid Calcium Total Bilirubin AST ALT Alkaline Phosphatase Total Protein Albumin Urine Color YELLOW Urine Appearance CLEAR Urine pH 7.0 Ur Specific [place] 1.012 Urine Protein >=500 H Urine Glucose (UA) 50 H Urine Ketones NEGATIVE Urine Blood NEGATIVE Urine Nitrite NEGATIVE Ur Leukocyte Esterase NEGATIVE Urine WBC (Auto) 1 Urine RBC (Auto) 0 10/11/17 10/11/17 10/11/17 13:20 13:20 16:55 Creatine Kinase 115 Troponin I 0.014 < 0.012 NT-Pro-B Natriuret Pep 7010 H Impressions: Chest X-Ray 10/12/17 00:00 IMPRESSION: No pneumothorax following left-sided thoracentesis. Thoracentesis Ultrasound 10/12/17 00:00 IMPRESSION: SUCCESSFUL THORACENTESIS USING ULTRASOUND GUIDANCE. Assessment & Plan - Diagnosis (1) Pleural effusion Is this a current diagnosis for this admission?: Yes Plan: He is scheduled to undergo a thoracentesis for culture, cell type, glucose, LDH hopefully that will give him some symptomatic relief. And possible diagnostic potential.
--- NOTE | 2017-10-12 17:22 | XCELERA REPORT ---
[address] [address] Transthoracic Echocardiogram Report Name: NANCY VALDES Age: 81 yrs Gender: Male : 1935 Patient Status: Inpatient Patient Location: [address] [place] [address] Study Date: 10/12/2017 11:05 AM Height: 71 in Weight: 156 lb BSA: 1.9 m2 Procedure: A complete two-dimensional transthoracic echocardiogram was performed (2D, M-mode, spectral and color flow Doppler). The study was technically difficult with many images being suboptimal in quality. Reason For Study: chf Ordering Physician: JAKE CAMARENA Performed By: Candida Matias Interpretation Summary The left ventricular ejection fraction is preserved. Consider additional methods to assess LVEF such as MUGA scan, CTA heart, cardiac MRI, LUZ MARIA, etc. if clinically indicated. There is mild concentric left ventricular hypertrophy. The left ventricle is grossly normal size. Doppler measurements suggest pseudonormalized left ventricular relaxation, which is associated with grade II/IV or mild to moderate diastolic dysfunction Wall motion cannot be accurately commented on, but no definite regional wall motion abnormalities noted. Not all wall segments were well visualized. The right ventricle is grossly normal size. Right ventricular function cannot be assessed due to poor image quality. Borderline right atrial enlargement. The left atrium is moderately dilated. There is a mild amount of mitral regurgitation There is no mitral valve stenosis. No aortic regurgitation is present. There is no aortic valve stenosis There is a trace to mild amount of tricuspid regurgitation There is mild pulmonary hypertension by echo Right ventricular systolic pressure is estimated to be elevated at 30-40mmHg. The aortic root is not well visualized but is probably normal size. The inferior vena cava appeared normal and decreased < 50% with respiration (RAP 10-15 mmHg) There is no pericardial effusion. MMode/2D Measurements & Calculations RVDd: 2.6 cm LVIDd: 5.7 cm FS: 28.4 % Ao root diam: 3.3 cm IVSd: 1.1 cm LVIDs: 4.1 cm EDV(Teich): 162.7 ml Ao root area: 8.6 cm2 LVPWd: 1.0 cm ESV(Teich): 74.7 ml LA dimension: 4.9 cm EF(Teich): 54.1 % Doppler Measurements & Calculations MV E max joi: MV P1/2t max joi: Ao V2 max: LV V1 max P.3 cm/sec 171.6 cm/sec 206.3 cm/sec 3.6 mmHg MV A max joi: MV P1/2t: 57.0 msec Ao max PG: LV V1 max: 92.3 cm/sec MVA(P1/2t): 3.9 cm2 17.0 mmHg 94.8 cm/sec MV E/A: 1.4 MV dec slope: 881.1 cm/sec2 MV dec time: 0.22 sec PA V2 max: TR max joi: MV P1/2t-pr_phl: 96.0 cm/sec 273.9 cm/sec 57.0 msec PA max P.7 mmHg TR max P.0 mmHg Left Ventricle The left ventricle is grossly normal size. There is mild concentric left ventricular hypertrophy. The left ventricular ejection fraction is preserved. Consider additional methods to assess LVEF such as MUGA scan, CTA heart, cardiac MRI, LUZ MARIA, etc. if clinically indicated. Doppler measurements suggest pseudonormalized left ventricular relaxation, which is associated with grade II/IV or mild to moderate diastolic dysfunction. Not all wall segments were well visualized. Wall motion cannot be accurately commented on, but no definite regional wall motion abnormalities noted. Right Ventricle The right ventricle is grossly normal size. Right ventricular function cannot be assessed due to poor image quality. Atria Borderline right atrial enlargement. The left atrium is moderately dilated. Interarterial septum not well visualized and not well dopplered. Cannot comment on ASD/PFO presence. Mitral Valve The mitral valve leaflets are sclerotic, but show no functional abnormalities. There is no mitral valve stenosis. There is a mild amount of mitral regurgitation. Aortic Valve The aortic valve is not well visualized secondary to technical limitations. The aortic valve opens well. There is no aortic valve stenosis. No aortic regurgitation is present. Tricuspid Valve The tricuspid valve is not well visualized secondary to technical limitations. There is no tricuspid stenosis. There is a trace to mild amount of tricuspid regurgitation. There is mild pulmonary hypertension by echo. Right ventricular systolic pressure is estimated to be elevated at 30-40mmHg. Pulmonic Valve The pulmonic valve is not well visualized. Great Vessels The aortic root is not well visualized but is probably normal size. The inferior vena cava appeared normal and decreased < 50% with respiration (RAP 10-15 mmHg). Effusions There is no pericardial effusion. : JAKE CAMARENA > Donte Urias
[2017-10-12] MEDS: LEVOFLOXACIN 500 MG/D5W RTU 500 MG/100 ML RTUPB IV SCH (17:34)
--- NOTE | 2017-10-12 19:46 | PDOC CONSULTATION ---
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 Camarena/Kerwin, for direct admit pertaining to shortness of breath and dyspnea developing over the last few weeks. Patient states he has also noticed swelling in his lower extremities. Patient states that he does take a fluid pill daily. Patient states that activity increases his dyspnea on exertion. He has not had any noted chest pain. Patient states that he has had occasional nonproductive cough with occasional blood-tinged, but lately has been white. Patient states that he is urinating normally and having normal bowel movements. Denies any other recent illness. Denies any headache, fever, URI, sore throat , chest pain, palpitations, syncope, abdominal pain, nausea/vomiting/diarrhea, urinary retention, dysuria, hematuria, or rash. This history obtained by the ER physician was reviewed. Patient today seen. He claims that his symptoms of progressive leg swelling, shortness of breath, orthopnea and PND has been going on for last several weeks. Progress lately he had to spend night sleeping on the couch. Patient has long history of coronary artery disease having had CABG in 1992. Subsequently 5 years later in 1997 he had some stents placed. Otherwise he claims he has been stable from cardiac standpoint. Past Medical History Cardiac Medical History: Reports: Congestive Heart Failure, Coronary Artery Disease, Hyperlipidema, Hypertension Denies: Myocardial Infarction Pulmonary Medical History: Reports: Chronic Obstructive Pulmonary Disease (COPD) Denies: Asthma Neurological Medical History: Denies: Seizures Endocrine Medical History: Reports: Diabetes Mellitus Type 2 Renal/ Medical History: Reports: Chronic Kidney Disease Malignancy Medical History: Reports: Lung Cancer GI Medical History: Reports: Hiatal Hernia Denies: Hepatitis Hematology: Reports: Anemia - hx borderline Denies: Sickle Cell Disease Past Surgical History Past Surgical History: Reports: Cardiac Catheterization - stents, Coronary Artery Bypass Graft Denies: Pacemaker Social History Lives with: Family Smoking Status: Former Smoker Cigarettes Packs Per Day: 1 Number of Years Smokin Frequency of Alcohol Use: None Hx Recreational Drug Use: No Hx Prescription Drug Abuse: No - Advance Directive Resuscitation Status: Full Code Family History Family History: DM, Hypertension Parental Family History Reviewed: Yes Children Family History Reviewed: Yes Sibling(s) Family History Reviewed.: Yes Medication/Allergy Home Medications: Amitriptyline HCl [Elavil 25 mg Tablet] 25 mg PO TIDP PRN 10/11/17 Ascorbic Acid [Vitamin C 500 mg Tablet] 500 mg PO TID 10/11/17 Aspirin [Aspirin EC] 81 mg PO DAILY 10/11/17 Dicyclomine HCl [Bentyl 10 mg Capsule] 10 mg PO QID 10/11/17 Ferrous Sulfate [Feosol 325 mg Tablet] 325 mg PO TID 10/11/17 Insulin Aspart [Novolog Flexpen] 10 unit SQ TID 10/11/17 Lisinopril [Prinivil] 20 mg PO DAILY 10/11/17 Simvastatin [Zocor 40 mg Tablet] 40 mg PO QPM 10/11/17 Acetaminophen [Tylenol 325 mg Tablet] 650 mg PO Q6HP PRN tablet 10/19/17 Amiodarone HCl [Cordarone 200 mg Tablet] 200 mg PO Q12 30 Days #60 tablet Calcium Carbonate [Tums Chewable 500 mg Tab.chew] 500 mg PO Q8HP PRN tab.chew 10/19/17 Docusate Sodium [Colace 100 mg Capsule] 100 mg PO BID 30 Days #60 capsule Hydralazine HCl [Apresoline 25 mg Tablet] 25 mg PO Q12 30 Days #60 tablet Insulin Detemir [Levemir Insulin 100 units/mL] 45 unit SUBCUT QHS 30 Days #1 insuln.pen 10/19/17 Levalbuterol HCl [Xopenex Neb 1.25 mg/3 ml Ampul] 1.25 mg NEB [id number] 30 Days # 120 vial.neb 10/19/17 Levofloxacin [Levaquin 500 mg Tablet] 500 mg PO QPM 5 Days #5 tablet 10/19/17 Lisinopril [Prinivil 10 mg Tablet] 20 mg PO DAILY tablet 10/19/17 Metolazone [Zaroxolyn 2.5 mg Tablet] 2.5 mg PO DAILY 30 Days #30 tablet Nitroglycerin [Nitro-Dur 10 mg (0.4MG/Hr) Transdermal Patch] 1 each TD DAILY 30 Days #30 patch.td24 10/19/17 Simvastatin [Zocor 40 mg Tablet] 40 mg PO QHS tablet 10/19/17 Allergies/Adverse Reactions: Penicillins Allergy (Verified 10/11/17 12:13) quinine Allergy (Verified 10/11/17 12:13) Sulfa (Sulfonamide Antibiotics) Allergy (Verified 10/11/17 12:13) Edema Review of Systems Review of Systems: Constitutional: PRESENT: weight gain no fever or chills reported Eyes: ABSENT: visual disturbances, no significant eye symptoms reported Ears: ABSENT: hearing changes, no ear discharge reported Cardiovascular: PRESENT: dyspnea on exertion, palpitations, no chest pain reported, significant edema and shortness of breath reported. Respiratory: PRESENT: cough, dyspnea, hemoptysis, sputum Gastrointestinal: ABSENT: abdominal pain, constipation, diarrhea, hematemesis, hematochezia, nausea, vomiting Genitourinary: ABSENT: dysuria, hematuria Musculoskeletal: ABSENT: joint swelling, pedal edema reported Neurological: ABSENT: abnormal gait, abnormal speech, confusion, dizziness, focal weakness, syncope Psychiatric: ABSENT: anxiety, depression, homidical ideation, suicidal ideation Endocrine: ABSENT: cold intolerance, heat intolerance, menstrual abnormalities, polydipsia, polyuria Hematologic/Lymphatic: ABSENT: easy bleeding, easy bruising, lymphadenopathy Physical Exam Vital Signs: Temp Pulse Resp BP Pulse Ox 97.8 F 108 H 16 144/77 H 98 10/12/17 15:08 10/12/17 18:00 10/12/17 15:46 10/12/17 18:00 10/12/17 15:46 Intake & Output 10/11/17 10/12/17 10/13/17 06:59 06:59 06:59 Intake Total 675 706 Output Total 1075 Balance -400 706 Weight 70.8 kg 96.6 kg Exam: GENERAL: well-nourished and in no acute distress. Alert and oriented x3 HEAD: Atraumatic, normocephalic. EYES: Pupils equal round and reactive to light, extraocular movements intact, sclera anicteric, conjunctiva are normal. ENT: TMs normal, nares patent, oropharynx clear without exudates. Moist mucous membranes. No oral ulcerations or bleeding gums noted NECK: supple without lymphadenopathy. Trachea is central. No cervical or axillary lymphadenopathy noted. Carotids are 2+, JVD 16 cm LUNGS: Respiration seems nonlabored, no significant accessory muscle action noted. Diminished breath sounds left base with dullness indicative of left pleural effusion. Recent thoracentesis scar noted. CHEST: Palpation of the chest wall shows no significant chest wall tenderness. 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 ABDOMEN: Soft, no significant tenderness appreciated, normoactive bowel sounds. No guarding, no rebound. No rigidity noted . No masses appreciated. EXTREMITIES: Pedal pulses are 1-2+, no calf tenderness noted. No clubbing or cyanosis. 2-3+ bilateral pedal edema noted NEUROLOGICAL: Focused neurological exam showed no significant neurologic deficit. Normal speech, no focal weakness appreciated. PSYCH: Normal mood, normal affect. Judgment and insight within normal limits. SKIN: No significant ecchymosis, skin is noted to be warm. MUSCULOSKELETAL EXAM: No significant acute joint swelling noted. Results Laboratory Results: 10/11/17 13:20 10/11/17 13:20 10/12/17 10/12/17 09:35 10:33 TSH 3.24 Fluid Type PLEURAL Fluid Source LUNG Fluid Color YELLOW Fluid Appearance SLIGHTLY HAZY Fluid Viscosity LIQUID Fluid WBC 2567 Fluid RBC 3150 10/11/17 10/11/17 10/11/17 13:20 13:20 16:55 Creatine Kinase 115 CK-MB (CK-2) Troponin I 0.014 < 0.012 NT-Pro-B Natriuret Pep 7010 H 10/12/17 10/12/17 10/12/17 10:33 10:33 14:41 Creatine Kinase 81 78 CK-MB (CK-2) 2.23 Troponin I < 0.012 NT-Pro-B Natriuret Pep 10/12/17 14:41 Creatine Kinase CK-MB (CK-2) 2.52 Troponin I 0.016 NT-Pro-B Natriuret Pep EKG Comments: Shows atrial fibrillation, no acute ST-T wave changes are noted Impressions: Chest X-Ray 10/12/17 00:00 IMPRESSION: NO CHANGE IN APPEARANCE OF THE CHEST. NO PNEUMOTHORAX FOLLOWING THORACENTESIS. Thoracentesis Ultrasound 10/12/17 00:00 IMPRESSION: SUCCESSFUL THORACENTESIS USING ULTRASOUND GUIDANCE. 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 mellitus fdc insulin use: with marketing analytics manager use Diabetes mellitus complication status: with kidney complications Chronic kidney disease stage: stage 3 (moderate) Is this a current diagnosis for this admission?: Yes (5) Hypertensive disorder Qualifiers: Hypertension type: essential hypertension Qualified Code(s): I10 - Essential (primary) hypertension Is this a current diagnosis for this admission?: Yes (6) Atrial fibrillation Qualifiers: Atrial fibrillation type: chronic Qualified Code(s): I48.2 - Chronic atrial fibrillation Is this a current diagnosis for this admission?: Yes - Notes Notes: CHF: Continue IV diuretics. Lung mass and left pleural effusion: Patient being evaluated by oncologist. Left pleural effusion could be partly from CHF. May consider thoracentesis additional times as needed Atrial fibrillation: Recommend rate control and chronic anticoagulation. Will consider chronic amiodarone therapy at patient age should be with acceptable side effects. Patient however would need chronic anticoagulation. Hypertension: Blood pressure goal should be 140/90 or less. Diabetes: This is being well managed by credit collections clerk. - Time Time Spent: 30 to 50 Minutes - CODE STATUS was discussed, patient remains full code. Surrogate decision-maker patient's sons. Multiple medical problems were addressed. More than 50% of the time spent coordinating care, discussing management plans with involved caregivers. Management plans discussed with involved personnels. Medical decision making was of moderate to high complexity , patient's has multiple comorbidities. Medications reviewed and adjusted accordingly: Yes
[2017-10-12] MEDS: SODIUM CHLORIDE NASAL SPRAY 44 ML NASL SCH (21:24)
[2017-10-12] MEDS: SIMVASTATIN 40 MG TABLET PO SCH (21:24)
[2017-10-12] MEDS: INSULIN DETEMIR 100 UNIT/ML 3 ML PEN SUBCUT SCH (21:25)
[2017-10-12 21:36] LABS: CREATINE KINASE MB 2.55 ng/mL (<4.55); TROPONIN I 0.02 ng/mL
--- NOTE | 2017-10-12 22:46 | CONSULTATION REPORT E ---
Consultation Report NAME: NANCY VALDES : 1935 AGE: 81Y DATE: 10/12/2017 ROOM: 305 A TO: MINOR GUDINO M.D. FROM: Requesting Physician HISTORY OF PRESENT ILLNESS: The patient is an 81-year-old male who came in with increased shortness of breath, had a pleural effusion, had a mass in the left lower lobe. He had a thoracentesis done today and claims that he is feeling a lot better after the thoracentesis. Never had a biopsy of the left lower lobe yet. The patient stopped Plavix more than a week ago and continued to take aspirin until this morning, 81 mg tablet daily. Denies any fever, chills. Denies any hemoptysis. Had some purulent sputum production. No vomiting, no diarrhea. The patient had a PET scan done 2 days ago showing high uptake involving the left lower lobe mass. PAST MEDICAL HISTORY: History of congestive heart failure, coronary artery disease, hyperlipidemia, hypertension, and COPD. Has history of diabetes type 2 and chronic kidney disease. History of hiatal hernia and borderline anemia and history of lung cancer. SURGICAL HISTORY: Denies. SOCIAL HISTORY: The patient lives with family. Former smoker. He used to smoke 1 pack a day for about 50 years. Denies alcohol abuse, illicit drug use. FAMILY HISTORY: Not pertinent. HOME MEDICATIONS: 1. Amitriptyline. 2. Amlodipine. 3. Ascorbic acid. 4. Aspirin 81 mg. 5. Tessalon Perles. 6. Bumex. 7. Bentyl. 8. Doxycycline. 9. *------* sulfate. 10. Lasix. 11. Mucinex. 12. Insulin. 13. Lisinopril. 14. Metformin. 15. *------*. 16. Simvastatin. ALLERGIES: 1. PENICILLIN. 2. QUININE. 3. SULFA. REVIEW OF SYSTEMS: CONSTITUTIONAL: No unexplained weight gain. EYES: No visual disturbances, no jaundice. EARS, NOSE, AND THROAT: No ear discharge noted, no nasal discharge. RESPIRATORY: Complained about increased shortness of breath. Has pleural effusion left lung, status post thoracentesis. CARDIAC: The patient has history of congestive heart failure. GASTROINTESTINAL: No nausea, vomiting, or diarrhea. GENITOURINARY: No dysuria or hematuria. Positive renal stones. MUSCULOSKELETAL: No joint swelling. NEUROLOGIC: No history of syncope or dizziness or seizures. PHYSICAL EXAMINATION: GENERAL: The patient is awake, alert, coherent, afebrile, not in apparent severe distress. VITAL SIGNS: Temperature of 97.8 with a T-max of 98.1, heart rate of 108, blood pressure is 144/77, respiratory rate of 16, saturation is 98% on 2 liters nasal cannula. EYES: No jaundice or pallor. EARS, NOSE, AND THROAT: No ear drainage noted. No nasal discharge. CHEST AND LUNGS: No wheezing, no rhonchi, no coarse crackles. CARDIOVASCULAR: S1, S2 distinct. Normal rate and regular rhythm. ABDOMEN: Flabby, positive bowel sounds, soft, nondistended, nontender. EXTREMITIES: No joint swelling, no cellulitis. LABORATORY DATA: CBC done yesterday showed white count of 10.4, hemoglobin is 10.3, hematocrit is 31.4, platelet count 221. Chemistry done today showed sodium 137, potassium 4.2, chloride 96, CO2 is 28, creatinine is 1.65, BUN is 75, glucose 163, and calcium is 8.5, albumin is 3.1, total protein 6.4. IMAGING STUDIES: CT scan showed a mass involving the left lower lobe. ASSESSMENT: 1. Left lower lobe mass with pleural effusion. Positive high uptake on PET scan done about 2 days ago, high likelihood of malignancy. 2. History of congestive heart failure and coronary artery disease. PLAN/RECOMMENDATION: 1. We will plan to schedule the patient for bronchoscopy on Monday. 2. We will hold aspirin starting today. The patient has received last dose of aspirin this morning. 3. We will wait for the pleural effusion cytology results to come in. If the pleural effusion cytology comes back showing malignant cells we will defer to medical oncology whether bronchoscopy will still be needed. 4. Agreed to continue the IV Levaquin. DICTATING PHYSICIAN: MINOR GUDINO MD,KEYSHA,MPH [id number] PHY#: [id number] 2023 ID: [id number] JOB#: [id number] ACCT: [id number] cc:MINOR GUDINO M.D. > MTDD
[2017-10-13] MEDS: DILTIAZEM HCL/D5W 125 MG/125 ML RTUINJ IV PRN ×3 (00:17→20:25)
[2017-10-13 08:00] LABS: ANION GAP 12 (5-19); BLOOD UREA NITROGEN 23 mg/dL (7-20); CALCIUM 8.5 mg/dL (8.4-10.2); CARBON DIOXIDE 24 mmol/L (22-30); CHLORIDE 96 mmol/L (98-107); GLUCOSE 212 mg/dL (75-110); POTASSIUM 4.2 mmol/L (3.6-5.0); SODIUM 131.5 mmol/L (137-145)
[2017-10-13] MEDS: LEVALBUTEROL HCL NEB 1.25 MG/3 ML AMPUL NEB SCH ×4 (08:09→19:42)
--- NOTE | 2017-10-13 08:23 | PDOC PROGRESS REPORT ---
Subjective Progress Note for:: 10/13/17 Subjective:: Feeling much better post thoracentesis, bronch planned tomorrow per nursing Reason For Visit: PLEURAL EFFUSION, PNEUMONIA Physical Exam Vital Signs: Temp Pulse Resp BP Pulse Ox 98.2 F 86 20 125/48 L 91 L 10/13/17 04:07 10/13/17 07:00 10/13/17 04:07 10/13/17 06:00 10/13/17 04:07 Intake & Output 10/12/17 10/13/17 10/14/17 06:59 06:59 06:59 Intake Total 675 1180 Output Total 1075 475 Balance -400 705 Weight 70.8 kg 96.6 kg General appearance: PRESENT: no acute distress, well-developed, well-nourished Head exam: PRESENT: atraumatic, normocephalic Eye exam: PRESENT: conjunctiva pink, EOMI, PERRLA. ABSENT: scleral icterus Ear exam: PRESENT: normal external ear exam Mouth exam: PRESENT: moist, tongue midline Neck exam: ABSENT: carotid bruit, JVD, lymphadenopathy, thyromegaly Respiratory exam: PRESENT: clear to auscultation ferny. ABSENT: rales, rhonchi, wheezes Cardiovascular exam: PRESENT: RRR. ABSENT: diastolic murmur, rubs, systolic murmur Pulses: PRESENT: normal dorsalis pedis pul Vascular exam: PRESENT: normal capillary refill GI/Abdominal exam: PRESENT: normal bowel sounds, soft. ABSENT: distended, guarding, mass, organolmegaly, rebound, tenderness Rectal exam: PRESENT: deferred Extremities exam: PRESENT: full ROM. ABSENT: calf tenderness, clubbing, pedal edema Neurological exam: PRESENT: alert, awake, oriented to person, oriented to place , oriented to time, oriented to situation, CN II-XII grossly intact. ABSENT: motor sensory deficit Psychiatric exam: PRESENT: appropriate affect, normal mood. ABSENT: homicidal ideation, suicidal ideation Skin exam: PRESENT: dry, intact, warm. ABSENT: cyanosis, rash Results Laboratory Results: 10/11/17 13:20 10/13/17 07:23 10/12/17 10/12/17 10/13/17 09:35 10:33 07:23 Sodium 131.5 L Potassium 4.2 Chloride 96 L Carbon Dioxide 24 Anion Gap 12 BUN 23 H Creatinine 1.65 H Est GFR ( Amer) 48 L Est GFR (Non-Af Amer) 40 L Glucose 212 H Calcium 8.5 Magnesium 1.9 TSH 3.24 Fluid Type PLEURAL Fluid Source LUNG Fluid Color YELLOW Fluid Appearance SLIGHTLY HAZY Fluid Viscosity LIQUID Fluid WBC 2567 Fluid RBC 3150 10/11/17 10/11/17 10/11/17 13:20 13:20 16:55 Creatine Kinase 115 CK-MB (CK-2) Troponin I 0.014 < 0.012 NT-Pro-B Natriuret Pep 7010 H 10/12/17 10/12/17 10/12/17 10:33 10:33 14:41 Creatine Kinase 81 78 CK-MB (CK-2) 2.23 Troponin I < 0.012 NT-Pro-B Natriuret Pep 10/12/17 10/12/17 10/12/17 14:41 21:06 21:06 Creatine Kinase 78 CK-MB (CK-2) 2.52 2.55 Troponin I 0.016 0.020 NT-Pro-B Natriuret Pep Impressions: Chest X-Ray 10/12/17 00:00 IMPRESSION: NO CHANGE IN APPEARANCE OF THE CHEST. NO PNEUMOTHORAX FOLLOWING THORACENTESIS. Thoracentesis Ultrasound 10/12/17 00:00 IMPRESSION: SUCCESSFUL THORACENTESIS USING ULTRASOUND GUIDANCE. 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 - Time Time Spent with patient: 35 or more minutes - Inpatient Certification Based on my medical assessment, after consideration of the patient's comorbidities, presenting symptoms, or acuity I expect that the services needed warrant INPATIENT care.: Yes I certify that my determination is in accordance with my understanding of Medicare's requirements for reasonable and necessary INPATIENT services [42 CFR 412.3e].: Yes Medical Necessity: Need for Surgery
[2017-10-13] MEDS ORDERED: DEXTROSE 50%-WATER 25 GM/50 ML DISP.SYRIN IV PRN ×2 (09:03)
[2017-10-13] MEDS ORDERED: GLUCAGON,HUMAN RECOMB 1 MG INJ SUBCUT PRN (09:03)
[2017-10-13 09:12] LABS: ABSOLUTE EOSINOPHILS # (AUTO) 0.2 10^3/uL (0.0-0.6); ABSOLUTE LYMPHOCYTES (AUTO) 0.8 10^3/uL (0.5-4.7); ABSOLUTE NEUT (AUTO) 10.8 10^3/uL (1.7-8.2); BASOPHILS % (AUTO) 0.4 % (0-2); EOSINOPHILS % (AUTO) 1.3 % (0-6); HEMATOCRIT 28.9 % (37.9-51.0); HEMOGLOBIN 9.4 g/dL (13.5-17.0); LYMPHOCYTES % (AUTO) 5.9 % (13-45); MEAN CORPUSCULAR HEMOGLOBIN 26.5 pg (27.0-33.4); MEAN CORPUSCULAR HGB CONC 32.6 g/dL (32.0-36.0); MEAN CORPUSCULAR VOLUME 81 fl (80-97); MONOCYTES % (AUTO) 7.6 % (3-13); PLATELET COUNT 311 10^3/uL (150-450); RED BLOOD COUNT 3.57 10^6/uL (4.35-5.55); RED CELL DISTRIBUTION WIDTH 16.9 % (11.5-14.0); SEGMENTED NEUTROPHILS % (AUTO) 84.8 % (42-78); TOTAL CELLS COUNTED % (AUTO) 100 %; WHITE BLOOD COUNT 12.7 10^3/uL (4.0-10.5)
[2017-10-13] MEDS: INSULIN LISPRO 100 UNIT/ML 3 ML VIAL SUBCUT PRN ×4 (09:53→21:25)
[2017-10-13] MEDS: NITROGLYCERIN 10 MG (0.4 MG/HR) PATCH.TD24 TD SCH (09:54)
[2017-10-13] MEDS: SODIUM CHLORIDE NASAL SPRAY 44 ML NASL SCH ×4 (09:54→21:28)
[2017-10-13] MEDS: HYDRALAZINE HCL 25 MG TABLET PO SCH ×2 (09:55→21:25)
[2017-10-13] MEDS: FUROSEMIDE INJ/PF 40 MG/4 ML SDV IV SCH (09:56)
[2017-10-13] MEDS: DOCUSATE SODIUM 100 MG CAPSULE PO SCH ×2 (09:56→17:37)
[2017-10-13] MEDS: LISINOPRIL 10 MG TABLET PO SCH (09:56)
[2017-10-13] MEDS: METFORMIN HCL 500 MG TABLET PO SCH ×2 (09:56→17:36)
--- NOTE | 2017-10-13 10:09 | PDOC PROGRESS REPORT ---
Subjective Progress Note for:: 10/13/17 Subjective:: Su is sitting up having breakfast on nasal oxygen. He had the thoracentesis does state that having a little bit of discomfort after the procedure but states his breathing is better no cough no chest pain no palpitations no nausea vomiting. He has not had a bowel movement since admission but denies abdominal pain. Reason For Visit: PLEURAL EFFUSION, PNEUMONIA Physical Exam Vital Signs: Temp Pulse Resp BP Pulse Ox 97.9 F 107 H 18 136/62 H 95 10/13/17 08:02 10/13/17 08:09 10/13/17 08:09 10/13/17 08:02 10/13/17 08:09 Intake & Output 10/12/17 10/13/17 10/14/17 06:59 06:59 06:59 Intake Total 675 1180 Output Total 1075 475 Balance -400 705 Weight 70.8 kg 96.6 kg General appearance: PRESENT: no acute distress, well-developed, well-nourished Head exam: PRESENT: atraumatic, normocephalic Eye exam: PRESENT: conjunctiva pink, EOMI, PERRLA. ABSENT: scleral icterus Ear exam: PRESENT: normal external ear exam Mouth exam: PRESENT: moist, tongue midline Neck exam: PRESENT: full ROM. ABSENT: carotid bruit, JVD, lymphadenopathy, thyromegaly Respiratory exam: PRESENT: crackles, decreased breath sounds Cardiovascular exam: PRESENT: irregular rhythm Pulses: PRESENT: normal dorsalis pedis pul, +2 pedal pulses bilateral Vascular exam: PRESENT: normal capillary refill GI/Abdominal exam: PRESENT: normal bowel sounds, soft. ABSENT: distended, guarding, mass, organolmegaly, rebound, tenderness Rectal exam: PRESENT: deferred Additional comments: The 2+ edema to the level of the knees. Musculoskeletal exam: PRESENT: ambulatory Neurological exam: PRESENT: alert, awake, oriented to person, oriented to place , oriented to time, oriented to situation, CN II-XII grossly intact. ABSENT: motor sensory deficit Psychiatric exam: PRESENT: appropriate affect, normal mood. ABSENT: homicidal ideation, suicidal ideation Skin exam: PRESENT: dry, intact, warm. ABSENT: cyanosis, rash Results Laboratory Results: 10/13/17 07:23 10/13/17 07:23 10/12/17 10/12/17 10/13/17 09:35 10:33 07:23 WBC RBC Hgb Hct MCV MCH MCHC RDW Plt Count Seg Neutrophils % Lymphocytes % Monocytes % Eosinophils % Basophils % Absolute Neutrophils Absolute Lymphocytes Absolute Monocytes Absolute Eosinophils Absolute Basophils Sodium 131.5 L Potassium 4.2 Chloride 96 L Carbon Dioxide 24 Anion Gap 12 BUN 23 H Creatinine 1.65 H Est GFR ( Amer) 48 L Est GFR (Non-Af Amer) 40 L Glucose 212 H Calcium 8.5 Magnesium 1.9 TSH 3.24 Fluid Type PLEURAL Fluid Source LUNG Fluid Color YELLOW Fluid Appearance SLIGHTLY HAZY Fluid Viscosity LIQUID Fluid WBC 2567 Fluid RBC 3150 10/13/17 07:23 WBC 12.7 H RBC 3.57 L Hgb 9.4 L Hct 28.9 L MCV 81 MCH 26.5 L MCHC 32.6 RDW 16.9 H Plt Count 311 Seg Neutrophils % 84.8 H Lymphocytes % 5.9 L Monocytes % 7.6 Eosinophils % 1.3 Basophils % 0.4 Absolute Neutrophils 10.8 H Absolute Lymphocytes 0.8 Absolute Monocytes 1.0 Absolute Eosinophils 0.2 Absolute Basophils 0.0 Sodium Potassium Chloride Carbon Dioxide Anion Gap BUN Creatinine Est GFR ( Amer) Est GFR (Non-Af Amer) Glucose Calcium Magnesium TSH Fluid Type Fluid Source Fluid Color Fluid Appearance Fluid Viscosity Fluid WBC Fluid RBC 10/11/17 10/11/17 10/11/17 13:20 13:20 16:55 Creatine Kinase 115 CK-MB (CK-2) Troponin I 0.014 < 0.012 NT-Pro-B Natriuret Pep 7010 H 10/12/17 10/12/17 10/12/17 10:33 10:33 14:41 Creatine Kinase 81 78 CK-MB (CK-2) 2.23 Troponin I < 0.012 NT-Pro-B Natriuret Pep 10/12/17 10/12/17 10/12/17 14:41 21:06 21:06 Creatine Kinase 78 CK-MB (CK-2) 2.52 2.55 Troponin I 0.016 0.020 NT-Pro-B Natriuret Pep Impressions: Chest X-Ray 10/12/17 00:00 IMPRESSION: NO CHANGE IN APPEARANCE OF THE CHEST. NO PNEUMOTHORAX FOLLOWING THORACENTESIS. Thoracentesis Ultrasound 10/12/17 00:00 IMPRESSION: SUCCESSFUL THORACENTESIS USING ULTRASOUND GUIDANCE. Assessment & Plan - Diagnosis (1) Pleural effusion Is this a current diagnosis for this admission?: Yes (2) Atrial fibrillation Qualifiers: Atrial fibrillation type: unspecified Qualified Code(s): I48.91 - Unspecified atrial fibrillation Is this a current diagnosis for this admission?: Yes Plan: Tinea on Cardizem drip for the next 24 hours of maintains rate control orals medication under the guidance of cardiology. (3) Congestive heart failure Qualifiers: Heart failure type: diastolic Heart failure chronicity: acute Qualified Code(s): I50.31 - Acute diastolic (congestive) heart failure Is this a current diagnosis for this admission?: Yes Plan: We will increase his Lasix to 40 IV twice daily monitor his electrolytes. 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 - Time Time Spent with patient: 15-24 minutes Medications reviewed and adjusted accordingly: Yes Anticipated discharge: Home Within: Other - Inpatient Certification I certify that my determination is in accordance with my understanding of Medicare's requirements for reasonable and necessary INPATIENT services [42 CFR 412.3e].: Yes Medical Necessity: Failure to Improve With Outpatient Therapy, Need Close Monitoring Due to Risk of Patient Decompensation, Need for IV Antibiotics Post Hospital Care: D/C Gis Programmer Documentation
[2017-10-13 11:02] LABS: INTERNATIONAL RATION (INR) 1.15; PARTIAL THROMBOPLASTIN TIME 33.5 SEC (23.5-35.8); PROTHROMBIN TIME 15.3 SEC (11.4-15.4)
--- NOTE | 2017-10-13 16:19 | RADIOLOGY REPORT (SQ) ---
EXAM DESCRIPTION: CHEST SINGLE VIEW COMPLETED DATE/TIME: 10/13/2017 4:10 pm REASON FOR STUDY: left lower lobe; pleural effusion COMPARISON: 10/12/2017 EXAM PARAMETERS: NUMBER OF VIEWS: One view. TECHNIQUE: Single frontal radiographic view of the chest acquired. RADIATION DOSE: NA LIMITATIONS: None. FINDINGS: LUNGS AND PLEURA: No pneumothorax. Small residual pleural effusion. Chronic interstitial changes. Considerable opacity in the left base. MEDIASTINUM AND HILAR STRUCTURES: No masses. Contour normal. HEART AND VASCULAR STRUCTURES: Cardiomegaly. BONES: No acute findings. HARDWARE: Sternotomy wires. OTHER: No other significant finding. IMPRESSION: No pneumothorax. Small residual pleural effusion. Cardiomegaly without CHF. Airspace disease in the left base. Atelectasis versus pneumonia. TECHNICAL DOCUMENTATION: JOB ID: [id number] [employer]- All Rights Reserved Reading location - IP/workstation name: [email or web address]
[2017-10-13] MEDS: LEVOFLOXACIN 500 MG TABLET PO SCH (17:37)
--- NOTE | 2017-10-13 20:28 | PDOC PROGRESS REPORT ---
Subjective Progress Note for:: 10/13/17 Subjective:: Patient seems to be doing better with gradual improvement. Pt is denying any chest arm or neck discomfort. Patient denying any PND, orthopnea. Patient denied any sustained palpitations, dizziness, syncope, near syncope. Patient denying any fever chills. Patient denying any other significant discomfort. Review of systems: Rest review of systems negative. Medications: Medications have been reviewed. Reason For Visit: PLEURAL EFFUSION, PNEUMONIA Physical Exam Vital Signs: Temp Pulse Resp BP Pulse Ox 98.5 F 102 H 16 141/38 H 95 10/13/17 19:39 10/13/17 20:00 10/13/17 19:42 10/13/17 20:00 10/13/17 19:42 Intake & Output 10/12/17 10/13/17 10/14/17 06:59 06:59 06:59 Intake Total 675 1180 794 Output Total 1075 475 200 Balance -400 705 594 Weight 70.8 kg 96.6 kg Exam: GENERAL: well-nourished and in no acute distress. Alert and oriented x3 HEAD: Atraumatic, normocephalic. EYES: Pupils equal round and reactive to light, extraocular movements intact, sclera anicteric, conjunctiva are normal. ENT: TMs normal, nares patent, oropharynx clear without exudates. Moist mucous membranes. No oral ulcerations or bleeding gums noted NECK: supple without lymphadenopathy. Trachea is central. No cervical or axillary lymphadenopathy noted. Carotids are 2+, JVD 10-12 cm LUNGS: Respiration seems nonlabored, no significant accessory muscle action noted. Bibasilar fine crackles. No wheezes rales or rhonchi noted. Bilateral dullness noted on percussion. CHEST: Palpation of the chest wall shows no significant chest wall tenderness. 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 ABDOMEN: Soft, no significant tenderness appreciated, normoactive bowel sounds. No guarding, no rebound. No rigidity noted . No masses appreciated. EXTREMITIES: Pedal pulses are 1-2+, no calf tenderness noted. No clubbing or cyanosis. 1-2+ pedal edema noted NEUROLOGICAL: Focused neurological exam showed no significant neurologic deficit. Normal speech, no focal weakness appreciated. PSYCH: Normal mood, normal affect. Judgment and insight within normal limits. SKIN: No significant ecchymosis, skin is noted to be warm. MUSCULOSKELETAL EXAM: No significant acute joint swelling noted. Results Laboratory Results: 10/13/17 07:23 10/13/17 07:23 10/12/17 10/12/17 10/13/17 09:35 09:35 07:23 WBC RBC Hgb Hct MCV MCH MCHC RDW Plt Count Seg Neutrophils % Lymphocytes % Monocytes % Eosinophils % Basophils % Absolute Neutrophils Absolute Lymphocytes Absolute Monocytes Absolute Eosinophils Absolute Basophils Sodium 131.5 L Potassium 4.2 Chloride 96 L Carbon Dioxide 24 Anion Gap 12 BUN 23 H Creatinine 1.65 H Est GFR ( Amer) 48 L Est GFR (Non-Af Amer) 40 L Glucose 212 H Calcium 8.5 Magnesium 1.9 Fluid Total Protein 1.9 Fluid LDH 120 10/13/17 07:23 WBC 12.7 H RBC 3.57 L Hgb 9.4 L Hct 28.9 L MCV 81 MCH 26.5 L MCHC 32.6 RDW 16.9 H Plt Count 311 Seg Neutrophils % 84.8 H Lymphocytes % 5.9 L Monocytes % 7.6 Eosinophils % 1.3 Basophils % 0.4 Absolute Neutrophils 10.8 H Absolute Lymphocytes 0.8 Absolute Monocytes 1.0 Absolute Eosinophils 0.2 Absolute Basophils 0.0 Sodium Potassium Chloride Carbon Dioxide Anion Gap BUN Creatinine Est GFR ( Amer) Est GFR (Non-Af Amer) Glucose Calcium Magnesium Fluid Total Protein Fluid LDH 10/11/17 10/11/17 10/11/17 13:20 13:20 16:55 Creatine Kinase 115 CK-MB (CK-2) Troponin I 0.014 < 0.012 NT-Pro-B Natriuret Pep 7010 H 10/12/17 10/12/17 10/12/17 10:33 10:33 14:41 Creatine Kinase 81 78 CK-MB (CK-2) 2.23 Troponin I < 0.012 NT-Pro-B Natriuret Pep 10/12/17 10/12/17 10/12/17 14:41 21:06 21:06 Creatine Kinase 78 CK-MB (CK-2) 2.52 2.55 Troponin I 0.016 0.020 NT-Pro-B Natriuret Pep EKG Comments: No significant cardiac dysrhythmia noted. Impressions: Thoracentesis Ultrasound 10/12/17 00:00 IMPRESSION: SUCCESSFUL THORACENTESIS USING ULTRASOUND GUIDANCE. Chest X-Ray 10/13/17 16:00 IMPRESSION: No pneumothorax. Small residual pleural effusion. Cardiomegaly without CHF. Airspace disease in the left base. Atelectasis versus pneumonia. 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 mellitus penitentiary insulin use: with termite treater use Diabetes mellitus complication status: with kidney complications Chronic kidney disease stage: stage 3 (moderate) Is this a current diagnosis for this admission?: Yes (5) Hypertensive disorder Qualifiers: Hypertension type: essential hypertension Qualified Code(s): I10 - Essential (primary) hypertension Is this a current diagnosis for this admission?: Yes (6) Atrial fibrillation Qualifiers: Atrial fibrillation type: chronic Qualified Code(s): I48.2 - Chronic atrial fibrillation Is this a current diagnosis for this admission?: Yes - Notes Notes: 2D echocardiogram results were reviewed. Management plans regarding cardiac status was discussed. CHF: Continue IV diuretics. Swelling and dyspnea is improving. Lung mass and left pleural effusion: Patient being evaluated by oncologist. Left pleural effusion could be partly from CHF. Status post thoracentesis. Atrial fibrillation: Recommend rate control and chronic anticoagulation. Will consider chronic amiodarone therapy at patient age should be with acceptable side effects. Patient however would need chronic anticoagulation. Hypertension: Blood pressure goal should be 140/90 or less. Diabetes: This is being well managed by business test analyst. - Time Time with patient: Greater than 35 minutes - More than 50% of the time spent coordinating care, discussing management plans with involved caregivers. Management plans discussed with involved personnels. Medical decision making was of moderate to high complexity, patient's has multiple comorbidities. Medications reviewed and adjusted accordingly: Yes
[2017-10-13] MEDS: SIMVASTATIN 40 MG TABLET PO SCH (21:25)
[2017-10-13] MEDS: INSULIN DETEMIR 100 UNIT/ML 3 ML PEN SUBCUT SCH (21:26)
--- NOTE | 2017-10-13 23:06 | PROGRESS NOTE E ---
Progress Note NAME: NANCY VALDES : 1935 AGE: 81Y DATE: 10/13/2017 ROOM: 305 SUBJECTIVE: The patient is an 81-year-old male with increased shortness of breath and hemoptysis with a left lower lobe mass. PET scan showed marked high PET uptake involving the left lower lobe mass. Status post thoracentesis for the pleural effusion, results are still pending. The patient denies any fever, chills, increased cough, or purulent sputum production. Breathing is about the same. OBJECTIVE: GENERAL: The patient is awake, coherent, oriented, afebrile, not in acute respiratory distress. VITAL SIGNS: Blood pressure 141/38, temperature is 98.5, heart rate is 102, saturation is 95% on 2 liters nasal cannula. EYES: No jaundice or pallor. EARS, NOSE, AND THROAT: No ear drainage noted. No nasal discharge. HEAD AND NECK: No scalp swelling, no neck swelling, no neck pain. CHEST AND LUNGS: Slightly decreased breath sounds left lung field. No wheezing, no rhonchi, no coarse crackles. CARDIOVASCULAR: S1, S2 distinct. Normal rate and regular rhythm. ABDOMEN: Flabby, positive bowel sounds, soft, nondistended, nontender. EXTREMITIES: No joint swelling, no cellulitis. LABORATORY DATA: CBC done today showed white count of 12.7, hematocrit 38.9, platelet count is 311. PT done today showed 15.3, INR is 1.15, and PTT is 33.5. Chemistry done this morning showed sodium 131, potassium 4.2, chloride 96, CO2 is 24, BUN is 23, creatinine is 1.65, glucose is 212, calcium is 8.5, and magnesium is 1.9. IMAGING STUDIES: Chest x-ray done today showed a mild pleural effusion left lung. ASSESSMENT: 1. LEFT LOWER LOBE MASS, POSSIBLE MALIGNANCY. 2. PERFUSION LEFT SIDE, STATUS POST THORACENTESIS. 3. SHORTNESS OF BREATH. PLAN/RECOMMENDATION: 1. We will schedule patient for possible bronchoscopy tomorrow, and left lower lobe mass biopsy. 2. Continue Levaquin 500 mg daily. 3. Continue the nebulizer treatment 1.25 mg every 6 hours. DICTATING PHYSICIAN: MINOR GUDINO MD,KEYSHA,MPH [id number] PHY#: [id number] ID: [id number] JOB#: [id number] ACCT: [id number] cc: > ANA LAURAD
[2017-10-14] MEDS: 1/2 NORMAL SALINE 1,000 ML IV PRN (00:31)
[2017-10-14 05:19] LABS: ANION GAP 11 (5-19); BLOOD UREA NITROGEN 26 mg/dL (7-20); CALCIUM 8.6 mg/dL (8.4-10.2); CARBON DIOXIDE 25 mmol/L (22-30); CHLORIDE 95 mmol/L (98-107); GLUCOSE 176 mg/dL (75-110); POTASSIUM 4.2 mmol/L (3.6-5.0); SODIUM 130.7 mmol/L (137-145)
[2017-10-14] MEDS: DILTIAZEM HCL/D5W 125 MG/125 ML RTUINJ IV PRN ×2 (07:38→18:38)
[2017-10-14] MEDS: LEVALBUTEROL HCL NEB 1.25 MG/3 ML AMPUL NEB SCH ×4 (08:11→20:07)
[2017-10-14] MEDS ORDERED: ONDANSETRON HCL INJ/PF 4 MG/2 ML SDV ONE (09:03)
[2017-10-14] MEDS ORDERED: LIDOCAINE 2% JELLY 30 ML TUBE ONE (09:03)
[2017-10-14] MEDS ORDERED: DIPHENHYDRAMINE HCL 50 MG/ML VIAL ONE (09:03)
[2017-10-14] MEDS ORDERED: NALOXONE HCL INJ/PF 0.4 MG/1 ML SDV ONE (09:04)
[2017-10-14] MEDS ORDERED: GLUCAGON,HUMAN RECOMB 1 MG INJ ONE (09:05)
[2017-10-14] MEDS ORDERED: FLUMAZENIL INJ 0.5 MG/5 ML VIAL ONE (09:05)
[2017-10-14] MEDS ORDERED: EPINEPHRINE INJ 1 MG/10 ML DISP.SYRIN ONE (09:05)
[2017-10-14] MEDS: LIDOCAINE 2% INJ (20 MG/ML) 20 ML MDV ONE ×2 (09:36→09:52)
[2017-10-14] MEDS: MIDAZOLAM 2 MG/2 ML INJ ONE ×6 (10:03→10:29)
[2017-10-14] MEDS: FENTANYL CITRATE INJ/PF 100 MCG/2 ML AMPUL ONE ×5 (10:04→10:27)
[2017-10-14] MEDS ORDERED: EPINEPHRINE INJ/PF 1 MG/1 ML AMPULE ONE (10:17)
--- NOTE | 2017-10-14 11:00 | PDOC PROGRESS REPORT ---
Subjective Progress Note for:: 10/14/17 Subjective:: No adverse events overnight. No new complaints. Vital signs have been stable. Breathing has felt fairly comfortable at rest. No chest pain. Reason For Visit: PLEURAL EFFUSION, PNEUMONIA Physical Exam Vital Signs: Temp Pulse Resp BP Pulse Ox 98.5 F 100 17 133/51 H 95 10/14/17 07:13 10/14/17 10:50 10/14/17 10:50 10/14/17 10:50 10/14/17 10:50 Intake & Output 10/13/17 10/14/17 10/15/17 06:59 06:59 06:59 Intake Total 1180 1246 212 Output Total 475 200 Balance 705 1046 212 Weight 96.6 kg General appearance: PRESENT: no acute distress, well-developed, well-nourished Respiratory exam: PRESENT: faint crackles left base, diminished breath sounds Cardiovascular exam: PRESENT: irregular rhythm Pulses: PRESENT: normal dorsalis pedis pul, +2 pedal pulses bilateral Vascular exam: PRESENT: normal capillary refill GI/Abdominal exam: PRESENT: normal bowel sounds, soft. ABSENT: distended, guarding, mass, organolmegaly, rebound, tenderness Musculoskeletal exam: 1+ lower extremity edema bilaterally Results Laboratory Results: 10/13/17 07:23 10/14/17 04:21 10/12/17 10/12/17 10/14/17 09:35 09:35 04:21 Sodium 130.7 L Potassium 4.2 Chloride 95 L Carbon Dioxide 25 Anion Gap 11 BUN 26 H Creatinine 1.80 H Est GFR ( Amer) 44 L Est GFR (Non-Af Amer) 36 L Glucose 176 H Calcium 8.6 Magnesium 1.9 Fluid Total Protein 1.9 Fluid LDH 120 10/11/17 10/11/17 10/11/17 13:20 13:20 16:55 Creatine Kinase 115 CK-MB (CK-2) Troponin I 0.014 < 0.012 NT-Pro-B Natriuret Pep 7010 H 10/12/17 10/12/17 10/12/17 10:33 10:33 14:41 Creatine Kinase 81 78 CK-MB (CK-2) 2.23 Troponin I < 0.012 NT-Pro-B Natriuret Pep 10/12/17 10/12/17 10/12/17 14:41 21:06 21:06 Creatine Kinase 78 CK-MB (CK-2) 2.52 2.55 Troponin I 0.016 0.020 NT-Pro-B Natriuret Pep Impressions: Thoracentesis Ultrasound 10/12/17 00:00 IMPRESSION: SUCCESSFUL THORACENTESIS USING ULTRASOUND GUIDANCE. Chest X-Ray 10/13/17 16:00 IMPRESSION: No pneumothorax. Small residual pleural effusion. Cardiomegaly without CHF. Airspace disease in the left base. Atelectasis versus pneumonia. Assessment & Plan - Diagnosis (1) Pleural effusion Is this a current diagnosis for this admission?: Yes Plan: Possibly malignant. Fluid studies pending. (2) Lung mass Is this a current diagnosis for this admission?: Yes Plan: Bronchoscopy today. Pulmonology consulted. (3) Atrial fibrillation Qualifiers: Atrial fibrillation type: chronic Qualified Code(s): I48.2 - Chronic atrial fibrillation Is this a current diagnosis for this admission?: Yes Plan: Rate controlled. Continue home medications. (4) Congestive heart failure Qualifiers: Heart failure type: diastolic Heart failure chronicity: acute Qualified Code(s): I50.31 - Acute diastolic (congestive) heart failure Is this a current diagnosis for this admission?: Yes Plan: Continue diuresis and medical optimization. - Time Time Spent with patient: 25-34 minutes
[2017-10-14] MEDS: METFORMIN HCL 500 MG TABLET PO SCH (11:20)
[2017-10-14] MEDS: DOCUSATE SODIUM 100 MG CAPSULE PO SCH ×2 (11:21→17:04)
[2017-10-14] MEDS: HYDRALAZINE HCL 25 MG TABLET PO SCH ×2 (11:21→21:56)
[2017-10-14] MEDS: FUROSEMIDE INJ/PF 40 MG/4 ML SDV IV SCH (11:22)
[2017-10-14] MEDS: NITROGLYCERIN 10 MG (0.4 MG/HR) PATCH.TD24 TD SCH (11:22)
[2017-10-14] MEDS: SODIUM CHLORIDE NASAL SPRAY 44 ML NASL SCH ×4 (11:22→21:57)
[2017-10-14] MEDS: LISINOPRIL 10 MG TABLET PO SCH (11:22)
[2017-10-14] MEDS: INSULIN LISPRO 100 UNIT/ML 3 ML VIAL SUBCUT PRN ×3 (13:02→22:05)
--- NOTE | 2017-10-14 13:46 | OPERATIVE REPORT E ---
Operative Report NAME: NANCY VALDES : 1935 AGE: 81Y DATE OF SURGERY: 10/14/2017 ROOM: 305 PREOPERATIVE DIAGNOSIS: LEFT LOWER LOBE MASS. POSTOPERATIVE DIAGNOSIS: LEFT LOWER LOBE MASS. OPERATION: Flexible bronchoscopy with endobronchial biopsies, left lung biopsy. SURGEON: MINOR GUDINO M.D. ANESTHESIA: Topical anesthesia was 2% lidocaine solution for a total dose of 28 mL. Conscious sedation using Versed, total dose of 3.5 mg, and fentanyl, total dose of 125 mcg. INDICATION: Patient is an 81-year-old male who came with increased shortness of breath, hemoptysis and pleural effusion. Had a thoracentesis a few days ago, results still pending. Came in with a big mass in the left lower lobe, positive on PET scan. One mass that is centrally located. ESTIMATED BLOOD LOSS: Less than about 1 mL. IMMEDIATE POSTOPERATIVE COMPLICATIONS: None. PROCEDURE: Consent was obtained from the patient. Patient verbalized understanding of the indications, the risks and potential complications of the flexible bronchoscopy and lung biopsy. Patient was connected to the central office operator, pulse oximetry, respiratory monitor and blood pressure monitor. Patient was given 5 mL of 2% lidocaine solution via nebulizer. Patient was given also 2% lidocaine solution 3 mL via atomizer. Then 2% lidocaine jelly was applied to the posterior pharyngeal area, both sides, using a cotton swab. Then 1% lidocaine solution in aliquots of 2 mL was given through the bronchoscope as the flexible bronchoscope was advanced through the airway. The flexible bronchoscope was inserted through the mouth guard. The vocal cords appeared normal. There are no lesions noted. The 1% lidocaine solution was applied to the vocal cords, trachea, levi, left and right mainstem bronchi, and more on the left segmental bronchi. The levi appeared sharp. No lesions noted on the upper lobe bronchi and the lingular bronchi. Endobronchial obstruction was noted on the left lower lobe bronchi. The left lower lobe lesion is friable and bleeds easily prior to doing a biopsy. The endobronchial biopsy was performed on the obstructing lesion, left lower lobe segmental bronchus x 2. There was a fair amount of bleeding, which blurred the vision for the biopsy, and which seemed to be controlled with cold saline solution. The left lower lobe airways were suctioned and cleared of secretions. No profuse active oozing of blood was noted prior to termination of the bronchoscopy. Patient tolerated the procedure. The bronchial lung biopsies were sent for pathology. Bronchial washings will be sent for cytology and microbiology. DICTATING PHYSICIAN: MINOR GUDINO MD,KEYSHA,MPH [id number] PHY#: [id number] ID: [id number] JOB#: [id number] ACCT: [id number] cc:MINOR GUDINO M.D. > [facility]
--- NOTE | 2017-10-14 14:16 | PROGRESS NOTE E ---
Progress Note NAME: NANCY VALDES : 1935 AGE: 81Y DATE: 10/14/2017 ROOM: 305 SUBJECTIVE: Patient is an 81-year-old male who came in with a left lower lobe mass and pleural effusion, left side. Patient felt well over the last 24 hours. Denies any hemoptysis. Denies any chest pain. Denies increasing shortness of breath or purulent sputum production. No nausea, vomiting or diarrhea. Patient is scheduled for a flexible bronchoscopy this morning. OBJECTIVE: VITAL SIGNS: Patient is awake, alert, coherent, oriented x3, afebrile with a temperature of 98.5 and a T-max of 98.27. Pulse rate of 86. Blood pressure is 143/57, respiratory rate is 22, saturation is 96% on 2 liters. EYES: No jaundice or pallor. EARS, NOSE AND THROAT: No ear drainage. No nasal discharge. HEAD AND NECK: No scalp swelling or tenderness. Neck supple. CHEST AND LUNGS: No wheezing, no rhonchi, no coarse crackles. CARDIOVASCULAR: S1, S2 distant. Normal rate and irregular rhythm. ABDOMEN: Flabby. Positive bowel sounds. Soft, nondistended, nontender. EXTREMITIES: No joint swelling. LABORATORY DATA: There was no CBC done today. Chemistry that was done today, October 14, showing sodium of 130, potassium 4.2, chloride 95, CO2 is 25, BUN 26, creatinine is 1.8. Glucose 126, calcium 8.6. ASSESSMENT: 1. LEFT LOWER LOBE MASS, POSITIVE HIGH PET SCAN UPTAKE, HIGHLY SUSPICIOUS FOR MALIGNANCY. He is scheduled for flexible bronchoscopy this morning. 2. PLEURAL EFFUSION, LEFT SIDE, POSSIBLE PLEURAL METASTASES OR MALIGNANT PLEURAL EFFUSION. 3. HISTORY OF ATRIAL FIBRILLATION AND HEART FAILURE. 4. PNEUMONIA. PLAN/RECOMMENDATIONS: 1. Patient is scheduled for flexible bronchoscopy with a lung biopsy today. 2. Continue IV antibiotics and GI prophylaxis. Continue oxygen therapy to get saturation to 91% to 94%. After the bronchoscopy, will clinically watch patient's breathing and hemoptysis. If patient's breathing gets worse and becomes increasingly short of breath and coughing up more blood, we might have to intubate the patient and repeat the bronchoscopy to clear the lungs of blood and try to stop the endobronchial bleeding. DICTATING PHYSICIAN: MINOR GUDINO MD,KEYSHA,MPH [id number] PHY#: [id number] ID: [id number] JOB#: [id number] ACCT: [id number] cc: > ELIZABETH
[2017-10-14] MEDS: LEVOFLOXACIN 500 MG TABLET PO SCH (17:04)
[2017-10-14] MEDS: INSULIN DETEMIR 100 UNIT/ML 3 ML PEN SUBCUT SCH (21:56)
[2017-10-14] MEDS: SIMVASTATIN 40 MG TABLET PO SCH (21:56)
[2017-10-15] MEDS: 1/2 NORMAL SALINE 1,000 ML IV PRN (02:02)
[2017-10-15 05:43] LABS: ANION GAP 12 (5-19); BLOOD UREA NITROGEN 32 mg/dL (7-20); CALCIUM 8.6 mg/dL (8.4-10.2); CARBON DIOXIDE 23 mmol/L (22-30); CHLORIDE 93 mmol/L (98-107); GLUCOSE 236 mg/dL (75-110); POTASSIUM 4.5 mmol/L (3.6-5.0); SODIUM 128.2 mmol/L (137-145)
[2017-10-15] MEDS: INSULIN LISPRO 100 UNIT/ML 3 ML VIAL SUBCUT PRN ×4 (07:56→22:11)
[2017-10-15] MEDS: LEVALBUTEROL HCL NEB 1.25 MG/3 ML AMPUL NEB SCH ×4 (07:57→19:52)
[2017-10-15] MEDS: DILTIAZEM HCL/D5W 125 MG/125 ML RTUINJ IV PRN ×2 (08:05→17:58)
[2017-10-15] MEDS: FUROSEMIDE INJ/PF 40 MG/4 ML SDV IV SCH (09:46)
[2017-10-15] MEDS: HYDRALAZINE HCL 25 MG TABLET PO SCH ×2 (09:46→22:11)
[2017-10-15] MEDS: LISINOPRIL 10 MG TABLET PO SCH (09:46)
[2017-10-15] MEDS: NITROGLYCERIN 10 MG (0.4 MG/HR) PATCH.TD24 TD SCH (09:47)
[2017-10-15] MEDS: DOCUSATE SODIUM 100 MG CAPSULE PO SCH ×2 (09:48→17:53)
[2017-10-15] MEDS: SODIUM CHLORIDE NASAL SPRAY 44 ML NASL SCH ×4 (11:12→22:12)
--- NOTE | 2017-10-15 13:17 | PDOC PROGRESS REPORT ---
Subjective Progress Note for:: 10/15/17 Subjective:: No adverse events overnight. No new complaints. Vital signs been stable. He states still has a lot of edema. He has not short of breath at rest. He said he is not on oxygen at home. Reason For Visit: PLEURAL EFFUSION, PNEUMONIA Physical Exam Vital Signs: Temp Pulse Resp BP Pulse Ox 98.8 F 72 18 149/47 H 95 10/15/17 11:44 10/15/17 12:00 10/15/17 11:48 10/15/17 12:00 10/15/17 11:48 Intake & Output 10/14/17 10/15/17 10/16/17 06:59 06:59 06:59 Intake Total 1246 2072 402 Output Total 200 375 200 Balance 1046 1697 202 General appearance: PRESENT: no acute distress, well-developed, well-nourished Respiratory exam: PRESENT: Bibasilar crackles, diminished breath sounds, unlabored Cardiovascular exam: PRESENT: irregular rhythm Vascular exam: PRESENT: normal capillary refill GI/Abdominal exam: PRESENT: normal bowel sounds, soft. ABSENT: distended, guarding, mass, organolmegaly, rebound, tenderness Musculoskeletal exam: 2+ lower extremity edema bilaterally Results Laboratory Results: 10/15/17 04:12 Sodium 128.2 L Potassium 4.5 Chloride 93 L Carbon Dioxide 23 Anion Gap 12 BUN 32 H Creatinine 2.18 H Est GFR ( Amer) 35 L Est GFR (Non-Af Amer) 29 L Glucose 236 H Calcium 8.6 Magnesium 2.0 10/11/17 10/11/17 10/11/17 13:20 13:20 16:55 Creatine Kinase 115 CK-MB (CK-2) Troponin I 0.014 < 0.012 NT-Pro-B Natriuret Pep 7010 H 10/12/17 10/12/17 10/12/17 10:33 10:33 14:41 Creatine Kinase 81 78 CK-MB (CK-2) 2.23 Troponin I < 0.012 NT-Pro-B Natriuret Pep 10/12/17 10/12/17 10/12/17 14:41 21:06 21:06 Creatine Kinase 78 CK-MB (CK-2) 2.52 2.55 Troponin I 0.016 0.020 NT-Pro-B Natriuret Pep Impressions: Thoracentesis Ultrasound 10/12/17 00:00 IMPRESSION: SUCCESSFUL THORACENTESIS USING ULTRASOUND GUIDANCE. Chest X-Ray 10/13/17 16:00 IMPRESSION: No pneumothorax. Small residual pleural effusion. Cardiomegaly without CHF. Airspace disease in the left base. Atelectasis versus pneumonia. Assessment & Plan - Diagnosis (1) Pleural effusion Is this a current diagnosis for this admission?: Yes Plan: Awaiting fluid studies, pulmonology consulted (2) Lung mass Is this a current diagnosis for this admission?: Yes Plan: Status post bronchoscopy, pulmonology consulted (3) Atrial fibrillation Qualifiers: Atrial fibrillation type: chronic Qualified Code(s): I48.2 - Chronic atrial fibrillation Is this a current diagnosis for this admission?: Yes Plan: Currently on Cardizem drip, rate is controlled. If his acute heart failure is too difficult to manage, he may need to be considered for a cardioversion. (4) Congestive heart failure Qualifiers: Heart failure type: diastolic Heart failure chronicity: acute Qualified Code(s): I50.31 - Acute diastolic (congestive) heart failure Is this a current diagnosis for this admission?: Yes Plan: He is on diuretics. He still edematous and has bibasilar lung crackles. As noted above, if he does not get the desired response with the current medical therapy, he may need to be considered for an elective cardioversion. - Time Time Spent with patient: 25-34 minutes
[2017-10-15 13:41] LABS: HEMATOCRIT 29.1 % (37.9-51.0); HEMOGLOBIN 9.7 g/dL (13.5-17.0); MEAN CORPUSCULAR HEMOGLOBIN 26.7 pg (27.0-33.4); MEAN CORPUSCULAR HGB CONC 33.4 g/dL (32.0-36.0); MEAN CORPUSCULAR VOLUME 80 fl (80-97); PLATELET COUNT 282 10^3/uL (150-450); RED BLOOD COUNT 3.63 10^6/uL (4.35-5.55); WHITE BLOOD COUNT 14.6 10^3/uL (4.0-10.5)
--- NOTE | 2017-10-15 13:45 | PDOC PROGRESS REPORT ---
Subjective Progress Note for:: 10/15/17 Subjective:: Patient states that he did not rest much yesterday with all the tests. He is feeling better today. Family is at bedside. He is eating well. He is able to get up walking. Reason For Visit: PLEURAL EFFUSION, PNEUMONIA Physical Exam Vital Signs: Temp Pulse Resp BP Pulse Ox 98.8 F 72 18 149/47 H 95 10/15/17 11:44 10/15/17 12:00 10/15/17 11:48 10/15/17 12:00 10/15/17 11:48 Intake & Output 10/14/17 10/15/17 10/16/17 06:59 06:59 06:59 Intake Total 1246 2072 402 Output Total 200 375 200 Balance 1046 1697 202 General appearance: PRESENT: no acute distress, well-developed, well-nourished Mouth exam: PRESENT: tongue midline Respiratory exam: PRESENT: unlabored Extremities exam: ABSENT: pedal edema Neurological exam: PRESENT: alert, awake Psychiatric exam: PRESENT: appropriate affect Skin exam: PRESENT: normal color Results Laboratory Results: 10/15/17 04:12 Sodium 128.2 L Potassium 4.5 Chloride 93 L Carbon Dioxide 23 Anion Gap 12 BUN 32 H Creatinine 2.18 H Est GFR ( Amer) 35 L Est GFR (Non-Af Amer) 29 L Glucose 236 H Calcium 8.6 Magnesium 2.0 10/11/17 10/11/17 10/11/17 13:20 13:20 16:55 Creatine Kinase 115 CK-MB (CK-2) Troponin I 0.014 < 0.012 NT-Pro-B Natriuret Pep 7010 H 10/12/17 10/12/17 10/12/17 10:33 10:33 14:41 Creatine Kinase 81 78 CK-MB (CK-2) 2.23 Troponin I < 0.012 NT-Pro-B Natriuret Pep 10/12/17 10/12/17 10/12/17 14:41 21:06 21:06 Creatine Kinase 78 CK-MB (CK-2) 2.52 2.55 Troponin I 0.016 0.020 NT-Pro-B Natriuret Pep Impressions: Thoracentesis Ultrasound 10/12/17 00:00 IMPRESSION: SUCCESSFUL THORACENTESIS USING ULTRASOUND GUIDANCE. Chest X-Ray 10/13/17 16:00 IMPRESSION: No pneumothorax. Small residual pleural effusion. Cardiomegaly without CHF. Airspace disease in the left base. Atelectasis versus pneumonia. Assessment & Plan - Diagnosis (1) Lung mass Is this a current diagnosis for this admission?: Yes Plan: Await pathology report from thoracentesis and bronchoscopy. - Plan Summary Plan Summary: Awaiting further test results. Patient appears quite stable. I will be available by phone tomorrow. Dr. Mccain to return on . Please call if needed.
[2017-10-15 14:02] LABS: ABSOLUTE LYMPHOCYTES# (MANUAL) 0.6 10^3/uL (0.5-4.7); ABSOLUTE MONOCYTES # (MANUAL) 0.4 10^3/uL (0.1-1.4); ABSOLUTE NEUTROPHILS# (MANUAL) 13.3 10^3/uL (1.7-8.2); ANION GAP 12 (5-19); BASOPHILS % (MANUAL) 0 % (0-2); BLOOD UREA NITROGEN 35 mg/dL (7-20); CALCIUM 8.9 mg/dL (8.4-10.2); CARBON DIOXIDE 24 mmol/L (22-30); CHLORIDE 91 mmol/L (98-107); EOSINOPHILS % (MANUAL) 2 % (0-6); GLUCOSE 294 mg/dL (75-110); LYMPHOCYTES % (MANUAL) 4 % (13-45); MONOCYTES % (MANUAL) 3 % (3-13); POTASSIUM 4.7 mmol/L (3.6-5.0); SEGMENTED NEUTROPHILS % (MAN) 91 % (42-78); SODIUM 126.5 mmol/L (137-145); TOTAL CELLS COUNTED 100
[2017-10-15 14:03] LABS: ANISOCYTOSIS 1+; HYPOCHROMASIA SLIGHT; OVALOCYTES 1+; PLATELET COMMENT ADEQUATE; POIKILOCYTOSIS 1+; POLYCHROMASIA 1+; TEAR DROP CELLS SLIGHT; TOXIC GRANULATION 1+
[2017-10-15] MEDS: LEVOFLOXACIN 500 MG TABLET PO SCH (17:57)
[2017-10-15] MEDS: INSULIN DETEMIR 100 UNIT/ML 3 ML PEN SUBCUT SCH (22:11)
[2017-10-15] MEDS: SIMVASTATIN 40 MG TABLET PO SCH (22:12)
[2017-10-16] MEDS ORDERED: CALCIUM CARBONATE 500 MG TAB.CHEW PO PRN (00:56)
[2017-10-16] MEDS: 1/2 NORMAL SALINE 1,000 ML IV PRN (01:08)
[2017-10-16] MEDS: DILTIAZEM HCL/D5W 125 MG/125 ML RTUINJ IV PRN ×2 (06:04→20:34)
--- NOTE | 2017-10-16 06:22 | PROGRESS NOTE E ---
Progress Note NAME: NANCY VALDES : 1935 AGE: 81Y DATE: 10/15/2017 ROOM: 305 SUBJECTIVE: Patient is an 81-year-old male who came in for left lower lobe mass and hemoptysis. Had a flexible bronchoscopy and transbronchial lung biopsy yesterday. Patient tolerated the procedure. Denies any hemoptysis in the last 24 hours after bronchoscopy, except earlier today, just a small streak of blood. No active hemoptysis. No fever, no chills, no chest pain. Denies any worsening dyspnea. OBJECTIVE: GENERAL: Patient awake, alert, coherent, afebrile. Oriented x3. VITAL SIGNS: Temperature 99 degrees Fahrenheit with a T-max of 98 degrees, heart rate of 95 on IV Cardizem still, and blood pressure is 160/54, respirations 16 and saturation is 95% on 2 liters nasal cannula. EYES: No jaundice or pallor. EARS, NOSE AND THROAT: No ear drainage. No nasal discharge. HEAD AND NECK: No scalp swelling. No neck tenderness. Neck supple. CHEST AND LUNGS: No wheezing, no rhonchi, no coarse crackles. CARDIOVASCULAR: S1, S2 distant. Normal rate, regular rhythm. ABDOMEN: Flabby. Positive bowel sounds. Soft, nondistended. EXTREMITIES: No joint swelling or cellulitis. LABORATORY DATA: CBC done today showed white count of 14.6, hemoglobin is 9.7, hematocrit is 29.1, platelet count is 282,000. Chemistry done today showed sodium is 126, potassium 4.7, chloride 91, CO2 is 24, BUN is 25, creatinine is 2.15. Glucose is 294. Calcium is 8.9. ASSESSMENT: 1. LEFT LOWER LOBE MASS STATUS POST TRANSBRONCHIAL LUNG BIOPSY. Awaiting results of the biopsy. Microbiology sent showed pending acid fast smear and culture. Blood cultures also pending. The pathology report for the pleural fluid cytology also pending. Etiology still unknown. 2. PLEURAL EFFUSION, LEFT SIDE. PLAN/RECOMMENDATIONS: 1. Will await for the results of the biopsy report. 2. May consider pleurax catheter placement, if pleural effusion worsens to mid lung field. 3. Pulmonary clinic followup in 2 to 3 weeks following hospital discharge. Will sign off tonight. If you have any questions, please feel free to call me. DICTATING PHYSICIAN: MINOR GUDINO MD,KEYSHA,MPH [id number] [id number] PHY#: [id number] ID: [id number] JOB#: [id number] ACCT: [id number] cc: > MTDD
[2017-10-16] MEDS: LEVALBUTEROL HCL NEB 1.25 MG/3 ML AMPUL NEB SCH ×4 (07:54→19:32)
[2017-10-16] MEDS: INSULIN LISPRO 100 UNIT/ML 3 ML VIAL SUBCUT PRN ×3 (09:05→22:17)
[2017-10-16] MEDS: NITROGLYCERIN 10 MG (0.4 MG/HR) PATCH.TD24 TD SCH (09:06)
[2017-10-16] MEDS: DOCUSATE SODIUM 100 MG CAPSULE PO SCH ×2 (09:11→17:38)
[2017-10-16] MEDS: HYDRALAZINE HCL 25 MG TABLET PO SCH ×2 (09:11→22:12)
[2017-10-16] MEDS: LISINOPRIL 10 MG TABLET PO SCH (09:11)
[2017-10-16] MEDS: FUROSEMIDE INJ/PF 40 MG/4 ML SDV IV SCH ×3 (09:11→22:11)
[2017-10-16] MEDS: SODIUM CHLORIDE NASAL SPRAY 44 ML NASL SCH ×4 (09:25→22:14)
--- NOTE | 2017-10-16 10:54 | PDOC PROGRESS REPORT ---
Subjective Progress Note for:: 10/16/17 Subjective:: This is a 81-year-old male with history of CHF, atrial fibrillation, diabetes who has been recently been diagnosed with a lung mass presented to the emergency room with shortness of breath and edema and hypoxia was found to have CHF/PNA as well as pleural effusion. Patient was also found to be in A. fib with RVR. Patient has been started on Cardizem drip along with Lasix; patient underwent thoracocentesis for diagnostic as well as bronchoscopy. Patient is currently awaiting results from bronchoscopy and pleural fluid pathology. He is currently on Cardizem drip and his rate is controlled. Patient is on IV diuresis and IV antibiotic. Patient still reports significant swelling in leg and arm. Denies shortness of breath at rest. Patient denies chest pain. Reason For Visit: PLEURAL EFFUSION, PNEUMONIA/CHF/Afib RVR Physical Exam Vital Signs: Temp Pulse Resp BP Pulse Ox 98.1 F 80 20 147/41 H 99 10/16/17 08:00 10/16/17 08:00 10/16/17 08:00 10/16/17 08:00 10/16/17 08:00 Intake & Output 10/15/17 10/16/17 10/17/17 06:59 06:59 06:59 Intake Total 2072 2675 Output Total 375 875 Balance 1697 1800 General appearance: PRESENT: no acute distress, cooperative Head exam: PRESENT: atraumatic, normocephalic Eye exam: PRESENT: EOMI, PERRLA Neck exam: PRESENT: JVD Respiratory exam: PRESENT: crackles, decreased breath sounds Cardiovascular exam: PRESENT: irregular rhythm, +S1, +S2 Extremities exam: PRESENT: pedal edema - 4+ Neurological exam: PRESENT: alert, awake, oriented to person, oriented to place , oriented to time, oriented to situation, CN II-XII grossly intact. ABSENT: motor sensory deficit Skin exam: PRESENT: dry, intact, warm. ABSENT: cyanosis, rash Results Laboratory Results: 10/15/17 13:00 10/15/17 13:00 10/15/17 10/15/17 13:00 13:00 WBC 14.6 H RBC 3.63 L Hgb 9.7 L Hct 29.1 L MCV 80 MCH 26.7 L MCHC 33.4 RDW 17.0 H Plt Count 282 Seg Neutrophils % Not Reportable Lymphocytes % Not Reportable Monocytes % Not Reportable Eosinophils % Not Reportable Basophils % Not Reportable Absolute Neutrophils Not Reportable Absolute Lymphocytes Not Reportable Absolute Monocytes Not Reportable Absolute Eosinophils Not Reportable Absolute Basophils Not Reportable Sodium 126.5 L Potassium 4.7 Chloride 91 L Carbon Dioxide 24 Anion Gap 12 BUN 35 H Creatinine 2.18 H Est GFR ( Amer) 35 L Est GFR (Non-Af Amer) 29 L Glucose 294 H Calcium 8.9 10/11/17 10/11/17 10/11/17 13:20 13:20 16:55 Creatine Kinase 115 CK-MB (CK-2) Troponin I 0.014 < 0.012 NT-Pro-B Natriuret Pep 7010 H 10/12/17 10/12/17 10/12/17 10:33 10:33 14:41 Creatine Kinase 81 78 CK-MB (CK-2) 2.23 Troponin I < 0.012 NT-Pro-B Natriuret Pep 10/12/17 10/12/17 10/12/17 14:41 21:06 21:06 Creatine Kinase 78 CK-MB (CK-2) 2.52 2.55 Troponin I 0.016 0.020 NT-Pro-B Natriuret Pep Impressions: Thoracentesis Ultrasound 10/12/17 00:00 IMPRESSION: SUCCESSFUL THORACENTESIS USING ULTRASOUND GUIDANCE. Chest X-Ray 10/13/17 16:00 IMPRESSION: No pneumothorax. Small residual pleural effusion. Cardiomegaly without CHF. Airspace disease in the left base. Atelectasis versus pneumonia. Assessment & Plan - Diagnosis (1) Congestive heart failure Qualifiers: Heart failure type: diastolic Heart failure chronicity: acute Qualified Code(s): I50.31 - Acute diastolic (congestive) heart failure Is this a current diagnosis for this admission?: Yes Plan: Patient with significant edema; hypoxia has improved; he is currently 99% on 2 L. Will try to wean off oxygen. will increase IV Lasix to every 8 hour. (2) Atrial fibrillation Qualifiers: Atrial fibrillation type: chronic Qualified Code(s): I48.2 - Chronic atrial fibrillation Is this a current diagnosis for this admission?: Yes Plan: Patient is still in atrial fibrillation but rate is controlled on Cardizem drip. If patient does not convert then he will need cardioversion. Follow-up with cardiology. (3) Lung mass Is this a current diagnosis for this admission?: Yes Plan: Status post bronchoscopy and awaiting results of pathology. (4) Pleural effusion Is this a current diagnosis for this admission?: Yes Plan: Awaiting fluid studies, pulmonology consulted (5) Pneumonia due to organism Is this a current diagnosis for this admission?: Yes Plan: On levofloxacin. Follow blood culture. - Time Time Spent with patient: 25-34 minutes - Inpatient Certification Medical Necessity: Need For Continuous Telemetry Monitoring, Need for IV Antibiotics
[2017-10-16] MEDS ORDERED: POLYETHYLENE GLYCOL 3350 POWDER 17 GM/1 PACKET PO PRN (15:51)
[2017-10-16] MEDS: LEVOFLOXACIN 500 MG TABLET PO SCH (17:38)
--- NOTE | 2017-10-16 19:14 | Progress Note ---
Provider Note Provider Note: called by nursing at 1900 about patient having 10 runs of Vtach. this is not a patient I am following. Went through the chart and noted that Dr Urias, Musculoskeletal Physiotherapist, was consulted and has seen patient. Called Dr Urias immediately, spoke with him about patient. I went over the case with Dr Urias,patient is in a.fib with raymon miranda, went over vitals and asked him what to do. I also noted patient is not on anticoagulation for his atrial fib- i asked Dr Urias and he told me to not start on any anticoagulation at this time. He did recommend starting patient on Amiodarone 200mg twice daily- starting tonight. i placed order as per Dr Urias. Dr Urias told me that he will see patient tomorrow.
[2017-10-16] MEDS: AMIODARONE HCL 200 MG TABLET PO SCH (22:12)
[2017-10-16] MEDS: SIMVASTATIN 40 MG TABLET PO SCH (22:12)
[2017-10-16] MEDS: INSULIN DETEMIR 100 UNIT/ML 3 ML PEN SUBCUT SCH (22:13)
[2017-10-17 05:04] LABS: HEMATOCRIT 27.3 % (37.9-51.0); HEMOGLOBIN 9.2 g/dL (13.5-17.0); MEAN CORPUSCULAR HEMOGLOBIN 26.6 pg (27.0-33.4); MEAN CORPUSCULAR HGB CONC 33.6 g/dL (32.0-36.0); MEAN CORPUSCULAR VOLUME 79 fl (80-97); PLATELET COUNT 282 10^3/uL (150-450); RED BLOOD COUNT 3.46 10^6/uL (4.35-5.55); RED CELL DISTRIBUTION WIDTH 16.6 % (11.5-14.0); WHITE BLOOD COUNT 12.6 10^3/uL (4.0-10.5)
[2017-10-17 05:14] LABS: ALANINE AMINOTRANSFERASE 33 U/L (21-72); ALBUMIN 2.3 g/dL (3.5-5.0); ALKALINE PHOSPHATASE 69 U/L (38-126); ANION GAP 10 (5-19); ASPARTATE AMINO TRANSFERASE 37 U/L (17-59); BILIRUBIN,DIRECT 0.3 mg/dL (0.0-0.4); BILIRUBIN,TOTAL 0.3 mg/dL (0.2-1.3); BLOOD UREA NITROGEN 35 mg/dL (7-20); CALCIUM 9.9 mg/dL (8.4-10.2); CARBON DIOXIDE 24 mmol/L (22-30); CHLORIDE 92 mmol/L (98-107); GLUCOSE 228 mg/dL (75-110); POTASSIUM 4.7 mmol/L (3.6-5.0); SODIUM 125.7 mmol/L (137-145); TOTAL PROTEIN 4.9 g/dL (6.3-8.2)
[2017-10-17 05:45] LABS: ABSOLUTE LYMPHOCYTES# (MANUAL) 0.6 10^3/uL (0.5-4.7); ABSOLUTE MONOCYTES # (MANUAL) 0.4 10^3/uL (0.1-1.4); ABSOLUTE NEUTROPHILS# (MANUAL) 11.5 10^3/uL (1.7-8.2); BASOPHILS % (MANUAL) 0 % (0-2); EOSINOPHILS % (MANUAL) 1 % (0-6); LYMPHOCYTES % (MANUAL) 5 % (13-45); MONOCYTES % (MANUAL) 3 % (3-13); SEGMENTED NEUTROPHILS % (MAN) 91 % (42-78); TOTAL CELLS COUNTED 100
[2017-10-17 05:49] LABS: ANISOCYTOSIS 1+; BURR CELLS 2+; OVALOCYTES 1+; PLATELET COMMENT ADEQUATE; POIKILOCYTOSIS 1+; TEAR DROP CELLS SLIGHT; TOXIC GRANULATION 1+; TOXIC VACUOLATION PRESENT
[2017-10-17] MEDS: FUROSEMIDE INJ/PF 40 MG/4 ML SDV IV SCH ×3 (05:54→22:28)
--- NOTE | 2017-10-17 08:16 | PDOC PROGRESS REPORT ---
Subjective Progress Note for:: 10/17/17 Subjective:: Pt having some runs of VTACH. Also still w/ AFIB w/ RVR. Not having much hemoptysis now. Breathing stable. Having more peripheral edema. Reason For Visit: PLEURAL EFFUSION, PNEUMONIA Physical Exam Vital Signs: Temp Pulse Resp BP Pulse Ox 98.3 F 78 20 129/39 H 91 L 10/17/17 04:28 10/17/17 06:00 10/17/17 04:28 10/17/17 06:00 10/17/17 04:28 Intake & Output 10/16/17 10/17/17 10/18/17 06:59 06:59 06:59 Intake Total 2675 1298 Output Total 875 1070 Balance 1800 228 General appearance: PRESENT: no acute distress, well-developed, well-nourished Head exam: PRESENT: atraumatic, normocephalic Eye exam: PRESENT: conjunctiva pink, EOMI, PERRLA. ABSENT: scleral icterus Ear exam: PRESENT: normal external ear exam Mouth exam: PRESENT: moist, tongue midline Neck exam: ABSENT: carotid bruit, JVD, lymphadenopathy, thyromegaly Respiratory exam: PRESENT: clear to auscultation ferny. ABSENT: rales, rhonchi, wheezes Cardiovascular exam: PRESENT: RRR. ABSENT: diastolic murmur, rubs, systolic murmur Pulses: PRESENT: normal dorsalis pedis pul Vascular exam: PRESENT: normal capillary refill GI/Abdominal exam: PRESENT: normal bowel sounds, soft. ABSENT: distended, guarding, mass, organolmegaly, rebound, tenderness Rectal exam: PRESENT: deferred Extremities exam: PRESENT: full ROM. ABSENT: calf tenderness, clubbing, pedal edema Neurological exam: PRESENT: alert, awake, oriented to person, oriented to place , oriented to time, oriented to situation, CN II-XII grossly intact. ABSENT: motor sensory deficit Psychiatric exam: PRESENT: appropriate affect, normal mood. ABSENT: homicidal ideation, suicidal ideation Skin exam: PRESENT: dry, intact, warm. ABSENT: cyanosis, rash Results Laboratory Results: 10/17/17 04:13 10/17/17 04:13 10/17/17 10/17/17 04:13 04:13 WBC 12.6 H RBC 3.46 L Hgb 9.2 L Hct 27.3 L MCV 79 L MCH 26.6 L MCHC 33.6 RDW 16.6 H Plt Count 282 Seg Neutrophils % Not Reportable Lymphocytes % Not Reportable Monocytes % Not Reportable Eosinophils % Not Reportable Basophils % Not Reportable Absolute Neutrophils Not Reportable Absolute Lymphocytes Not Reportable Absolute Monocytes Not Reportable Absolute Eosinophils Not Reportable Absolute Basophils Not Reportable Sodium 125.7 L Potassium 4.7 Chloride 92 L Carbon Dioxide 24 Anion Gap 10 BUN 35 H Creatinine 2.06 H Est GFR ( Amer) 38 L Est GFR (Non-Af Amer) 31 L Glucose 228 H Calcium 9.9 Total Bilirubin 0.3 AST 37 ALT 33 Alkaline Phosphatase 69 Total Protein 4.9 L Albumin 2.3 L 10/11/17 10/11/17 10/11/17 13:20 13:20 16:55 Creatine Kinase 115 CK-MB (CK-2) Troponin I 0.014 < 0.012 NT-Pro-B Natriuret Pep 7010 H 10/12/17 10/12/17 10/12/17 10:33 10:33 14:41 Creatine Kinase 81 78 CK-MB (CK-2) 2.23 Troponin I < 0.012 NT-Pro-B Natriuret Pep 10/12/17 10/12/17 10/12/17 14:41 21:06 21:06 Creatine Kinase 78 CK-MB (CK-2) 2.52 2.55 Troponin I 0.016 0.020 NT-Pro-B Natriuret Pep Impressions: Thoracentesis Ultrasound 10/12/17 00:00 IMPRESSION: SUCCESSFUL THORACENTESIS USING ULTRASOUND GUIDANCE. Chest X-Ray 10/13/17 16:00 IMPRESSION: No pneumothorax. Small residual pleural effusion. Cardiomegaly without CHF. Airspace disease in the left base. Atelectasis versus pneumonia. 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
[2017-10-17] MEDS ORDERED: INSULIN DETEMIR 100 UNIT/ML 3 ML PEN SUBCUT SCH (08:58)
[2017-10-17] MEDS: LEVALBUTEROL HCL NEB 1.25 MG/3 ML AMPUL NEB SCH ×4 (09:05→20:20)
[2017-10-17] MEDS ORDERED: ONDANSETRON HCL 8 MG TABLET PO PRN (09:07)
[2017-10-17] MEDS: APIXABAN 2.5 MG TABLET PO SCH (10:58)
[2017-10-17] MEDS: HYDRALAZINE HCL 25 MG TABLET PO SCH ×2 (10:58→22:27)
[2017-10-17] MEDS: NITROGLYCERIN 10 MG (0.4 MG/HR) PATCH.TD24 TD SCH (10:58)
[2017-10-17] MEDS: DOCUSATE SODIUM 100 MG CAPSULE PO SCH ×2 (10:58→17:14)
[2017-10-17] MEDS: AMIODARONE HCL 200 MG TABLET PO SCH ×2 (10:58→22:28)
[2017-10-17] MEDS: SODIUM CHLORIDE NASAL SPRAY 44 ML NASL SCH ×4 (10:59→22:31)
[2017-10-17] MEDS: METOLAZONE 2.5 MG TABLET PO SCH (10:59)
[2017-10-17] MEDS: LISINOPRIL 10 MG TABLET PO SCH (10:59)
[2017-10-17] MEDS: LANSOPRAZOLE 30 MG TAB.RAP.DR PO SCH (11:02)
[2017-10-17 11:08] LABS: CREATINE KINASE MB 1.3 ng/mL (<4.55)
[2017-10-17 11:13] LABS: TROPONIN I 0.02 ng/mL
[2017-10-17] MEDS: INSULIN LISPRO 100 UNIT/ML 3 ML VIAL SUBCUT PRN ×3 (12:45→22:33)
--- NOTE | 2017-10-17 12:50 | RADIOLOGY REPORT (SQ) ---
EXAM DESCRIPTION: CHEST 2 VIEWS COMPLETED DATE/TIME: 10/17/2017 12:14 pm REASON FOR STUDY: chf COMPARISON: CT chest 09/12/2017, PET-CT 10/10/2017 Chest films 10/11/2017, 10/13/2017 EXAM PARAMETERS: NUMBER OF VIEWS: two views TECHNIQUE: Digital Frontal and Lateral radiographic views of the chest acquired. RADIATION DOSE: NA LIMITATIONS: none FINDINGS: LUNGS AND PLEURA: Trace bilateral pleural effusions are present in the lateral and posteri or costophrenic sulci. These have re- accumulated slightly since 10/13/2017 chest films. There is postobstructive collapse and consolidation of the left lower lobe from a left lower hilar ma ss, stable. No right lung consolidation worrisome for pneumonia. Minimal basilar atelectasis. No pneumothorax MEDIASTINUM AND HILAR STRUCTURES: Left lower hilar mass better demonstrated on PET-CT and CT chest. HEART AND VASCULAR STRUCTURES: Old sternotomy for CABG. Stable moderate cardiomegaly BONES: Diffuse thoracic spine ankylosis. No compression deformity HARDWARE: None in the chest. OTHER: No other significant finding. IMPRESSION: Trace bilateral pleural effusions, increased since chest film 10/13/2017. Postobstructive collapse and consolidation left lower lobe from malignant left lower hilar mass seen better on CT chest/PET-CT. TECHNICAL DOCUMENTATION: JOB ID: [id number] [employer]- All Rights Reserved Reading location - IP/workstation name: [email or web address]
[2017-10-17 16:50] LABS: CREATINE KINASE MB 1.29 ng/mL (<4.55); TROPONIN I 0.021 ng/mL
[2017-10-17] MEDS: LEVOFLOXACIN 500 MG TABLET PO SCH (17:14)
--- NOTE | 2017-10-17 18:39 | PDOC PROGRESS REPORT ---
Subjective Progress Note for:: 10/17/17 Subjective:: Patient seems to be doing better with gradual improvement. Patient still has significant pedal edema but claims that breathing bustos he is better. Pt is denying any chest arm or neck discomfort. Patient denying any PND, orthopnea. Patient denied any sustained palpitations, dizziness, syncope, near syncope. Patient denying any fever chills. Patient denying any other significant discomfort. Patient noted to have some wide-complex nonsustained tachycardia. Review of systems: Rest review of systems negative. Medications: Medications have been reviewed. Reason For Visit: PLEURAL EFFUSION, PNEUMONIA Physical Exam Vital Signs: Temp Pulse Resp BP Pulse Ox 98.1 F 58 L 18 140/39 H 98 10/17/17 07:06 10/17/17 15:54 10/17/17 15:54 10/17/17 09:00 10/17/17 15:54 Intake & Output 10/16/17 10/17/17 10/18/17 06:59 06:59 06:59 Intake Total 2675 1298 243 Output Total 875 1070 225 Balance 1800 228 18 Exam: GENERAL: well-nourished and in no acute distress. Alert and oriented x3 HEAD: Atraumatic, normocephalic. EYES: Pupils equal round and reactive to light, extraocular movements intact, sclera anicteric, conjunctiva are normal. ENT: TMs normal, nares patent, oropharynx clear without exudates. Moist mucous membranes. No oral ulcerations or bleeding gums noted NECK: supple without lymphadenopathy. Trachea is central. No cervical or axillary lymphadenopathy noted. Carotids are 2+, JVD 10-12 cm LUNGS: Respiration seems nonlabored, no significant accessory muscle action noted. Bibasilar fine crackles noted. No wheezes rales or rhonchi noted. Mild left basal dullness noted on percussion. CHEST: Palpation of the chest wall shows no significant chest wall tenderness. 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 ABDOMEN: Soft, no significant tenderness appreciated, normoactive bowel sounds. No guarding, no rebound. No rigidity noted . No masses appreciated. EXTREMITIES: Pedal pulses are 1-2+, no calf tenderness noted. No clubbing or cyanosis. 2+ pedal edema noted NEUROLOGICAL: Focused neurological exam showed no significant neurologic deficit. Normal speech, no focal weakness appreciated. PSYCH: Normal mood, normal affect. Judgment and insight within normal limits. SKIN: No significant ecchymosis, skin is noted to be warm. MUSCULOSKELETAL EXAM: No significant acute joint swelling noted. Results Laboratory Results: 10/17/17 04:13 10/17/17 04:13 10/17/17 10/17/17 10/17/17 04:13 04:13 10:10 WBC 12.6 H RBC 3.46 L Hgb 9.2 L Hct 27.3 L MCV 79 L MCH 26.6 L MCHC 33.6 RDW 16.6 H Plt Count 282 Seg Neutrophils % Not Reportable Lymphocytes % Not Reportable Monocytes % Not Reportable Eosinophils % Not Reportable Basophils % Not Reportable Absolute Neutrophils Not Reportable Absolute Lymphocytes Not Reportable Absolute Monocytes Not Reportable Absolute Eosinophils Not Reportable Absolute Basophils Not Reportable Sodium 125.7 L Potassium 4.7 Chloride 92 L Carbon Dioxide 24 Anion Gap 10 BUN 35 H Creatinine 2.06 H Est GFR ( Amer) 38 L Est GFR (Non-Af Amer) 31 L Glucose 228 H Calcium 9.9 Magnesium 1.8 Total Bilirubin 0.3 AST 37 ALT 33 Alkaline Phosphatase 69 Total Protein 4.9 L Albumin 2.3 L TSH 10/17/17 10:10 WBC RBC Hgb Hct MCV MCH MCHC RDW Plt Count Seg Neutrophils % Lymphocytes % Monocytes % Eosinophils % Basophils % Absolute Neutrophils Absolute Lymphocytes Absolute Monocytes Absolute Eosinophils Absolute Basophils Sodium Potassium Chloride Carbon Dioxide Anion Gap BUN Creatinine Est GFR ( Amer) Est GFR (Non-Af Amer) Glucose Calcium Magnesium Total Bilirubin AST ALT Alkaline Phosphatase Total Protein Albumin TSH 4.02 10/14/17 10:30 Bronchial Washings Fungal Smear - Final 10/14/17 10:30 Bronchial Washings Fungal Smear - Final 10/14/17 10:30 Bronchial Washings AFB Smear Concentration - Final 10/14/17 10:30 Bronchial Washings Acid Fast Bacilli Smear - Final 10/11/17 10/11/17 10/11/17 13:20 13:20 16:55 Creatine Kinase 115 CK-MB (CK-2) Troponin I 0.014 < 0.012 NT-Pro-B Natriuret Pep 7010 H 10/12/17 10/12/17 10/12/17 10:33 10:33 14:41 Creatine Kinase 81 78 CK-MB (CK-2) 2.23 Troponin I < 0.012 NT-Pro-B Natriuret Pep 10/12/17 10/12/17 10/12/17 14:41 21:06 21:06 Creatine Kinase 78 CK-MB (CK-2) 2.52 2.55 Troponin I 0.016 0.020 NT-Pro-B Natriuret Pep 10/17/17 10/17/17 10/17/17 10:10 10:10 16:10 Creatine Kinase 34 L 30 L CK-MB (CK-2) 1.30 Troponin I 0.020 NT-Pro-B Natriuret Pep 10/17/17 16:10 Creatine Kinase CK-MB (CK-2) 1.29 Troponin I 0.021 NT-Pro-B Natriuret Pep Impressions: Thoracentesis Ultrasound 10/12/17 00:00 IMPRESSION: SUCCESSFUL THORACENTESIS USING ULTRASOUND GUIDANCE. Chest X-Ray 10/17/17 00:00 IMPRESSION: Trace bilateral pleural effusions, increased since chest film 2017. Postobstructive collapse and consolidation left lower lobe from malignant left lower hilar mass seen better on CT chest/PET-CT. 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 mellitus chcf insulin use: with chcf use Diabetes mellitus complication status: with kidney complications Chronic kidney disease stage: stage 3 (moderate) Is this a current diagnosis for this admission?: Yes (5) Hypertensive disorder Qualifiers: Hypertension type: essential hypertension Qualified Code(s): I10 - Essential (primary) hypertension (6) Atrial fibrillation Qualifiers: Atrial fibrillation type: chronic Qualified Code(s): I48.2 - Chronic atrial fibrillation Is this a current diagnosis for this admission?: Yes (7) Wide-complex tachycardia Is this a current diagnosis for this admission?: Yes - Notes Notes: CHF: Continue with diuretics. Swelling and dyspnea is improving. Monitor daily weights, may monitor BNP and chest x-ray serially. Lung mass and left pleural effusion: Patient being evaluated by oncologist. Left pleural effusion could be partly from CHF. Chest x-ray shows underlying lung mass with atelectasis as well as pleural effusion. Atrial fibrillation: Recommend rate control and chronic anticoagulation. Will consider chronic amiodarone therapy at patient age should be with acceptable side effects. Patient however would need chronic anticoagulation. We will leave decision about chronic anticoagulation with the oncologist as patient may need biopsy and oncologic therapy. Hypertension: Blood pressure goal should be 140/90 or less. Diabetes: This is being well managed by document control associate. Wide-complex tachycardia: At this point recommend amiodarone therapy. This has already been started by the hospitalist. - Time Time with patient: Greater than 35 minutes - More than 50% of the time spent coordinating care, discussing management plans with involved caregivers. Management plans discussed with involved personnels. Medical decision making was of moderate to high complexity, patient's has multiple comorbidities. Medications reviewed and adjusted accordingly: Yes
--- NOTE | 2017-10-17 21:11 | PROGRESS NOTE E ---
Progress Note NAME: NANCY VALDES : 1935 AGE: 81Y DATE: 10/17/2017 ROOM: 314 SUBJECTIVE: The patient is an 81-year-old male who came in with a left lower lobe mass. Had an endobronchial biopsy of the left lower lobe on the weekend, Monday. The patient tolerated the procedure well. The patient has been doing well over the last 24-48 hours. Denies any hemoptysis, chest pains, wheezing, or rhonchi. Denies any shortness of breath. Appetite has improved. No vomiting, no diarrhea. OBJECTIVE: GENERAL: The patient currently is awake, alert, coherent, oriented, afebrile, no in acute apparent respiratory distress. VITAL SIGNS: Temperature of 98.1 with a T-max of 98.7, heart rate of 78, blood pressure 140/39, and respirations 20, saturation 94% on nasal cannula 1 liter. EYES: No jaundice or pallor. EARS, NOSE, AND THROAT: No ear drainage. No nasal discharge. HEAD AND NECK: No scalp swelling or neck tenderness. Neck is supple. CHEST AND LUNGS: No wheezing, no rhonchi, no coarse crackles. CARDIOVASCULAR: S1, S2 distinct. Normal rate, regular rhythm. ABDOMEN: Flabby, positive bowel sounds, soft, nondistended, nontender. EXTREMITIES: No joint swelling, no cellulitis. LABORATORY DATA: CBC done today showed a white count of 12.6, hemoglobin is 9.2, hematocrit is 27.3, platelet count is 282. Chemistry done today showed sodium is 125.7, potassium 4.7, chloride 92, CO2 is 24, BUN 35, creatinine is 2.06, glucose is 228, calcium is 9.9, SGOT 37, SGPT 33, total protein is 4.9, albumin is 2.3. Lung biopsy done 10/14/2017, over the weekend, showed no granulomas or carcinoma. ASSESSMENT: LEFT LOWER LOBE MASS WITH HIGH PET UPTAKE. HIGHLY SUSPICIOUS FOR MALIGNANCY. Status post bronchoscopy with endobronchial biopsy left lower lobe done over the weekend, , was inconclusive. The patient may require a repeat biopsy to get more tissue specimen. PLAN: Recommend patient referral to [facility] for more tissue biopsy. Patient may require debulking of the left the lower lobe endobronchial tumor and may need electrocautery or cryotherapy if he bleeds excessively following endobronchial biopsy DICTATING PHYSICIAN: MINOR GUDINO MD,KEYSHA,MPH [id number] PHY#: [id number] ID: [id number] JOB#: [id number] ACCT: [id number] cc: > [facility]
[2017-10-17 22:02] LABS: CREATINE KINASE MB 1.11 ng/mL (<4.55); TROPONIN I 0.022 ng/mL
[2017-10-17] MEDS: ACETAMINOPHEN 325 MG TABLET PO PRN (22:27)
[2017-10-17] MEDS: SIMVASTATIN 40 MG TABLET PO SCH (22:28)
[2017-10-18 05:34] LABS: ANION GAP 9 (5-19); BLOOD UREA NITROGEN 41 mg/dL (7-20); CALCIUM 9.4 mg/dL (8.4-10.2); CARBON DIOXIDE 25 mmol/L (22-30); CHLORIDE 93 mmol/L (98-107); GLUCOSE 266 mg/dL (75-110); POTASSIUM 4.5 mmol/L (3.6-5.0); SODIUM 126.6 mmol/L (137-145)
[2017-10-18] MEDS: FUROSEMIDE INJ/PF 40 MG/4 ML SDV IV SCH ×3 (06:15→22:57)
[2017-10-18] MEDS: LANSOPRAZOLE 30 MG TAB.RAP.DR PO SCH (06:16)
[2017-10-18] MEDS ORDERED: INSULIN DETEMIR 100 UNIT/ML 3 ML PEN SUBCUT SCH (07:05)
[2017-10-18] MEDS: INSULIN LISPRO 100 UNIT/ML 3 ML VIAL SUBCUT PRN ×4 (07:35→23:00)
[2017-10-18] MEDS: ACETAMINOPHEN 325 MG TABLET PO PRN ×2 (07:41→23:02)
--- NOTE | 2017-10-18 08:06 | PDOC PROGRESS REPORT ---
Subjective Progress Note for:: 10/18/17 Subjective:: Pt off cardizem gtt now, on oral meds for rate control, still very weak, requiring full assist to just walk few steps. Planned for more aggressive PT today. Reviewed bx and cytology on pleural effusion results, they are non diagnostic. Will need repeat bx in [place] Reason For Visit: PLEURAL EFFUSION, PNEUMONIA Physical Exam Vital Signs: Temp Pulse Resp BP Pulse Ox 97.7 F 101 H 17 144/41 H 93 10/18/17 03:29 10/18/17 03:29 10/18/17 03:29 10/18/17 03:29 10/18/17 03:29 Intake & Output 10/17/17 10/18/17 10/19/17 06:59 06:59 06:59 Intake Total 1298 848 Output Total 1070 1150 Balance 228 -302 General appearance: PRESENT: no acute distress, well-developed, well-nourished Head exam: PRESENT: atraumatic, normocephalic Eye exam: PRESENT: conjunctiva pink, EOMI, PERRLA. ABSENT: scleral icterus Ear exam: PRESENT: normal external ear exam Mouth exam: PRESENT: moist, tongue midline Neck exam: ABSENT: carotid bruit, JVD, lymphadenopathy, thyromegaly Respiratory exam: PRESENT: clear to auscultation ferny. ABSENT: rales, rhonchi, wheezes Cardiovascular exam: PRESENT: RRR. ABSENT: diastolic murmur, rubs, systolic murmur Pulses: PRESENT: normal dorsalis pedis pul Vascular exam: PRESENT: normal capillary refill GI/Abdominal exam: PRESENT: normal bowel sounds, soft. ABSENT: distended, guarding, mass, organolmegaly, rebound, tenderness Rectal exam: PRESENT: deferred Extremities exam: PRESENT: full ROM. ABSENT: calf tenderness, clubbing, pedal edema Neurological exam: PRESENT: alert, awake, oriented to person, oriented to place , oriented to time, oriented to situation, CN II-XII grossly intact. ABSENT: motor sensory deficit Psychiatric exam: PRESENT: appropriate affect, normal mood. ABSENT: homicidal ideation, suicidal ideation Skin exam: PRESENT: dry, intact, warm. ABSENT: cyanosis, rash Results Laboratory Results: 10/17/17 04:13 10/18/17 04:41 10/17/17 10/17/17 10/18/17 10:10 10:10 04:41 Sodium 126.6 L Potassium 4.5 Chloride 93 L Carbon Dioxide 25 Anion Gap 9 BUN 41 H Creatinine 2.23 H Est GFR ( Amer) 34 L Est GFR (Non-Af Amer) 28 L Glucose 266 H Calcium 9.4 Magnesium 1.8 TSH 4.02 10/14/17 10:30 Bronchial Washings Fungal Smear - Final 10/14/17 10:30 Bronchial Washings Fungal Smear - Final 10/14/17 10:30 Bronchial Washings AFB Smear Concentration - Final 10/14/17 10:30 Bronchial Washings Acid Fast Bacilli Smear - Final 10/11/17 10/11/17 10/11/17 13:20 13:20 16:55 Creatine Kinase 115 CK-MB (CK-2) Troponin I 0.014 < 0.012 NT-Pro-B Natriuret Pep 7010 H 10/12/17 10/12/17 10/12/17 10:33 10:33 14:41 Creatine Kinase 81 78 CK-MB (CK-2) 2.23 Troponin I < 0.012 NT-Pro-B Natriuret Pep 10/12/17 10/12/17 10/12/17 14:41 21:06 21:06 Creatine Kinase 78 CK-MB (CK-2) 2.52 2.55 Troponin I 0.016 0.020 NT-Pro-B Natriuret Pep 10/17/17 10/17/17 10/17/17 10:10 10:10 16:10 Creatine Kinase 34 L 30 L CK-MB (CK-2) 1.30 Troponin I 0.020 NT-Pro-B Natriuret Pep 10/17/17 10/17/17 10/17/17 16:10 21:11 21:11 Creatine Kinase 26 L CK-MB (CK-2) 1.29 1.11 Troponin I 0.021 0.022 NT-Pro-B Natriuret Pep Impressions: Thoracentesis Ultrasound 10/12/17 00:00 IMPRESSION: SUCCESSFUL THORACENTESIS USING ULTRASOUND GUIDANCE. Chest X-Ray 10/17/17 00:00 IMPRESSION: Trace bilateral pleural effusions, increased since chest film 2017. Postobstructive collapse and consolidation left lower lobe from malignant left lower hilar mass seen better on CT chest/PET-CT. Assessment & Plan - Diagnosis (1) Pleural effusion Is this a current diagnosis for this admission?: Yes Plan: Still likely to be combo of parapneumonic from post obstructive pneumonia and malignant but cytology negative. No further thora needed as of now (2) Lung mass Is this a current diagnosis for this admission?: Yes Plan: Will need re-bx in [place]. - Time Time Spent with patient: 35 or more minutes Disposition: Will need PT eval and home 02 eval, then if safe to go home based on that, should d/c home and I would set up appt w/ Dr. Mckeon in [place] - Inpatient Certification Based on my medical assessment, after consideration of the patient's comorbidities, presenting symptoms, or acuity I expect that the services needed warrant INPATIENT care.: Yes I certify that my determination is in accordance with my understanding of Medicare's requirements for reasonable and necessary INPATIENT services [42 CFR 412.3e].: Yes Medical Necessity: Risk of Complication if Not Cared For in Hospital
[2017-10-18] MEDS: LEVALBUTEROL HCL NEB 1.25 MG/3 ML AMPUL NEB SCH ×4 (08:34→19:42)
--- NOTE | 2017-10-18 10:18 | PDOC PROGRESS REPORT ---
Subjective Progress Note for:: 10/17/17 Subjective:: Been up in his chair states to feeling much better minimal cough denies chest pain palpitations. Has been having heartburn since yesterday associated with some nauseousness has had regular bowel movements. Reason For Visit: PLEURAL EFFUSION, PNEUMONIA Physical Exam Vital Signs: Temp Pulse Resp BP Pulse Ox 98.1 F 90 16 140/39 H 92 10/17/17 07:06 10/17/17 13:04 10/17/17 13:04 10/17/17 09:00 10/17/17 13:04 Intake & Output 10/16/17 10/17/17 10/18/17 06:59 06:59 06:59 Intake Total 2675 1298 243 Output Total 875 1070 225 Balance 1800 228 18 General appearance: PRESENT: no acute distress Head exam: PRESENT: atraumatic, normocephalic Eye exam: PRESENT: conjunctiva pink, EOMI, PERRLA. ABSENT: scleral icterus Ear exam: PRESENT: normal external ear exam Mouth exam: PRESENT: moist, tongue midline Neck exam: PRESENT: full ROM. ABSENT: carotid bruit, JVD, lymphadenopathy, thyromegaly Respiratory exam: PRESENT: crackles, decreased breath sounds Cardiovascular exam: PRESENT: RRR. ABSENT: diastolic murmur, rubs, systolic murmur Pulses: PRESENT: normal dorsalis pedis pul, +2 pedal pulses bilateral Vascular exam: PRESENT: normal capillary refill GI/Abdominal exam: PRESENT: normal bowel sounds, soft. ABSENT: distended, guarding, mass, organolmegaly, rebound, tenderness Rectal exam: PRESENT: deferred Additional comments: 1-2+ edema to the tibial tuberosity no erythema no warmth Neurological exam: PRESENT: alert, awake, oriented to person, oriented to place , oriented to time, oriented to situation, CN II-XII grossly intact. ABSENT: motor sensory deficit Psychiatric exam: PRESENT: appropriate affect, normal mood. ABSENT: homicidal ideation, suicidal ideation Skin exam: PRESENT: dry, intact, warm. ABSENT: cyanosis, rash Results Laboratory Results: 10/17/17 04:13 10/17/17 04:13 10/17/17 10/17/17 10/17/17 04:13 04:13 10:10 WBC 12.6 H RBC 3.46 L Hgb 9.2 L Hct 27.3 L MCV 79 L MCH 26.6 L MCHC 33.6 RDW 16.6 H Plt Count 282 Seg Neutrophils % Not Reportable Lymphocytes % Not Reportable Monocytes % Not Reportable Eosinophils % Not Reportable Basophils % Not Reportable Absolute Neutrophils Not Reportable Absolute Lymphocytes Not Reportable Absolute Monocytes Not Reportable Absolute Eosinophils Not Reportable Absolute Basophils Not Reportable Sodium 125.7 L Potassium 4.7 Chloride 92 L Carbon Dioxide 24 Anion Gap 10 BUN 35 H Creatinine 2.06 H Est GFR ( Amer) 38 L Est GFR (Non-Af Amer) 31 L Glucose 228 H Calcium 9.9 Magnesium 1.8 Total Bilirubin 0.3 AST 37 ALT 33 Alkaline Phosphatase 69 Total Protein 4.9 L Albumin 2.3 L TSH 10/17/17 10:10 WBC RBC Hgb Hct MCV MCH MCHC RDW Plt Count Seg Neutrophils % Lymphocytes % Monocytes % Eosinophils % Basophils % Absolute Neutrophils Absolute Lymphocytes Absolute Monocytes Absolute Eosinophils Absolute Basophils Sodium Potassium Chloride Carbon Dioxide Anion Gap BUN Creatinine Est GFR ( Amer) Est GFR (Non-Af Amer) Glucose Calcium Magnesium Total Bilirubin AST ALT Alkaline Phosphatase Total Protein Albumin TSH 4.02 10/11/17 10/11/17 10/11/17 13:20 13:20 16:55 Creatine Kinase 115 CK-MB (CK-2) Troponin I 0.014 < 0.012 NT-Pro-B Natriuret Pep 7010 H 10/12/17 10/12/17 10/12/17 10:33 10:33 14:41 Creatine Kinase 81 78 CK-MB (CK-2) 2.23 Troponin I < 0.012 NT-Pro-B Natriuret Pep 10/12/17 10/12/17 10/12/17 14:41 21:06 21:06 Creatine Kinase 78 CK-MB (CK-2) 2.52 2.55 Troponin I 0.016 0.020 NT-Pro-B Natriuret Pep 10/17/17 10/17/17 10:10 10:10 Creatine Kinase 34 L CK-MB (CK-2) 1.30 Troponin I 0.020 NT-Pro-B Natriuret Pep Impressions: Thoracentesis Ultrasound 10/12/17 00:00 IMPRESSION: SUCCESSFUL THORACENTESIS USING ULTRASOUND GUIDANCE. Chest X-Ray 10/17/17 00:00 IMPRESSION: Trace bilateral pleural effusions, increased since chest film 2017. Postobstructive collapse and consolidation left lower lobe from malignant left lower hilar mass seen better on CT chest/PET-CT. Assessment & Plan - Diagnosis (1) Pleural effusion Is this a current diagnosis for this admission?: Yes Plan: Su is status post thoracentesis repeat chest x-ray shows some minimal reaccumulation we will continue to monitor. (2) Atrial fibrillation Qualifiers: Atrial fibrillation type: chronic Qualified Code(s): I48.2 - Chronic atrial fibrillation Is this a current diagnosis for this admission?: Yes Plan: She has been started on amiodarone for 24 hours rate seems to be controlled we will wean off the IV Cardizem start on Eliquis 2.5 mg daily (3) Congestive heart failure Qualifiers: Heart failure type: diastolic Heart failure chronicity: acute Qualified Code(s): I50.31 - Acute diastolic (congestive) heart failure Is this a current diagnosis for this admission?: Yes Plan: Plan we will put on a 750 cc fluid restricted diet DC all IV fluids we will increase his Lasix to 60 every 8 monitor I's and O's he has had a 4 L plus accumulation over the weekend we will try to reverse. 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 (5) Constipation Is this a current diagnosis for this admission?: Yes (6) Lung mass Is this a current diagnosis for this admission?: Yes Plan: Status post bronchoscopy await pathology report. (7) Hyponatremia Is this a current diagnosis for this admission?: Yes Plan: Put on a 750 cc fluid restriction DC all IV fluids DC IV Cardizem we will get urine spot sodium TSH urine and serum osmolarity suspect if we can get that positive fluid balance to negative the sodium will correct itself we will continue with daily BMP sevens. - Time Time Spent with patient: 15-24 minutes Medications reviewed and adjusted accordingly: Yes Anticipated discharge: Home Within: within 48 hours Disposition: home - Inpatient Certification Based on my medical assessment, after consideration of the patient's comorbidities, presenting symptoms, or acuity I expect that the services needed warrant INPATIENT care.: Yes I certify that my determination is in accordance with my understanding of Medicare's requirements for reasonable and necessary INPATIENT services [42 CFR 412.3e].: Yes Medical Necessity: Failure to Improve With Outpatient Therapy, Significant Comorbidiites Make Outpatient Treatment Too Risky, Need Close Monitoring Due to Risk of Patient Decompensation Post Hospital Care: D/C Nursing Home Aide Documentation
--- NOTE | 2017-10-18 10:25 | PDOC PROGRESS REPORT ---
Subjective Progress Note for:: 10/18/17 Subjective:: Patient states to feeling better, still weak, denies c/p, palpitation, no further n/v. He understands result that were inconclusive and will require rebiopsy in [place]. He does state to no BM several days has flatus. Reason For Visit: PLEURAL EFFUSION, PNEUMONIA Physical Exam Vital Signs: Temp Pulse Resp BP Pulse Ox 97.8 F 103 H 12 140/54 H 93 10/18/17 08:00 10/18/17 08:34 10/18/17 08:34 10/18/17 08:00 10/18/17 08:34 Intake & Output 10/17/17 10/18/17 10/19/17 06:59 06:59 06:59 Intake Total 1298 848 Output Total 1070 1150 Balance 228 -302 General appearance: PRESENT: no acute distress, well-developed, well-nourished Head exam: PRESENT: atraumatic, normocephalic Eye exam: PRESENT: conjunctiva pink, EOMI, PERRLA. ABSENT: scleral icterus Ear exam: PRESENT: normal external ear exam Mouth exam: PRESENT: moist, tongue midline Neck exam: PRESENT: full ROM. ABSENT: carotid bruit, JVD, lymphadenopathy, thyromegaly Respiratory exam: PRESENT: crackles, decreased breath sounds Cardiovascular exam: PRESENT: irregular rhythm Pulses: PRESENT: normal dorsalis pedis pul, +2 pedal pulses bilateral Vascular exam: PRESENT: normal capillary refill GI/Abdominal exam: PRESENT: normal bowel sounds, soft. ABSENT: distended, guarding, mass, organolmegaly, rebound, tenderness Rectal exam: PRESENT: deferred Additional comments: 1-2 plkus edema to mid tibia area Musculoskeletal exam: PRESENT: ambulatory Neurological exam: PRESENT: alert, awake, oriented to person, oriented to place , oriented to time, oriented to situation, CN II-XII grossly intact. ABSENT: motor sensory deficit Psychiatric exam: PRESENT: appropriate affect, normal mood. ABSENT: homicidal ideation, suicidal ideation Skin exam: PRESENT: dry, intact, warm. ABSENT: cyanosis, rash Results Laboratory Results: 10/17/17 04:13 10/18/17 04:41 10/17/17 10/17/17 10/18/17 10:10 10:10 04:41 Sodium 126.6 L Potassium 4.5 Chloride 93 L Carbon Dioxide 25 Anion Gap 9 BUN 41 H Creatinine 2.23 H Est GFR ( Amer) 34 L Est GFR (Non-Af Amer) 28 L Glucose 266 H Calcium 9.4 Magnesium 1.8 TSH 4.02 10/14/17 10:30 Bronchial Washings Fungal Smear - Final 10/14/17 10:30 Bronchial Washings Fungal Smear - Final 10/14/17 10:30 Bronchial Washings AFB Smear Concentration - Final 10/14/17 10:30 Bronchial Washings Acid Fast Bacilli Smear - Final 10/11/17 10/11/17 10/11/17 13:20 13:20 16:55 Creatine Kinase 115 CK-MB (CK-2) Troponin I 0.014 < 0.012 NT-Pro-B Natriuret Pep 7010 H 10/12/17 10/12/17 10/12/17 10:33 10:33 14:41 Creatine Kinase 81 78 CK-MB (CK-2) 2.23 Troponin I < 0.012 NT-Pro-B Natriuret Pep 10/12/17 10/12/17 10/12/17 14:41 21:06 21:06 Creatine Kinase 78 CK-MB (CK-2) 2.52 2.55 Troponin I 0.016 0.020 NT-Pro-B Natriuret Pep 10/17/17 10/17/17 10/17/17 10:10 10:10 16:10 Creatine Kinase 34 L 30 L CK-MB (CK-2) 1.30 Troponin I 0.020 NT-Pro-B Natriuret Pep 10/17/17 10/17/17 10/17/17 16:10 21:11 21:11 Creatine Kinase 26 L CK-MB (CK-2) 1.29 1.11 Troponin I 0.021 0.022 NT-Pro-B Natriuret Pep Impressions: Thoracentesis Ultrasound 10/12/17 00:00 IMPRESSION: SUCCESSFUL THORACENTESIS USING ULTRASOUND GUIDANCE. Chest X-Ray 10/17/17 00:00 IMPRESSION: Trace bilateral pleural effusions, increased since chest film 2017. Postobstructive collapse and consolidation left lower lobe from malignant left lower hilar mass seen better on CT chest/PET-CT. Assessment & Plan - Diagnosis (1) Pleural effusion Is this a current diagnosis for this admission?: Yes (2) Atrial fibrillation Qualifiers: Atrial fibrillation type: chronic Qualified Code(s): I48.2 - Chronic atrial fibrillation Is this a current diagnosis for this admission?: Yes Plan: discussed with [facility]EM-ON[facility] piedadl advise collin with hold anti-coagulation even though increased risk due to need for repeat biopsy soon. (3) Congestive heart failure Qualifiers: Heart failure type: diastolic Heart failure chronicity: acute Qualified Code(s): I50.31 - Acute diastolic (congestive) heart failure Is this a current diagnosis for this admission?: Yes Plan: cont. 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 (6) Lung mass Is this a current diagnosis for this admission?: Yes (7) Hyponatremia Is this a current diagnosis for this admission?: Yes Plan: cont. fluid restriction, did go from 125 to 126 will monitor, this will be long processs to correct and will need to followed as outpatient. - Time Time Spent with patient: 15-24 minutes Medications reviewed and adjusted accordingly: Yes Anticipated discharge: Home Within: within 24 hours - Inpatient Certification Medical Necessity: Failure to Improve With Outpatient Therapy, Significant Comorbidiites Make Outpatient Treatment Too Risky Post Hospital Care: D/C Veneer Marker Documentation
[2017-10-18] MEDS: LACTULOSE SYRUP 20 GM/30 ML UDCUP PO SCH ×4 (11:48→22:57)
[2017-10-18] MEDS: APIXABAN 2.5 MG TABLET PO SCH (11:49)
[2017-10-18] MEDS: AMIODARONE HCL 200 MG TABLET PO SCH ×2 (11:49→22:58)
[2017-10-18] MEDS: HYDRALAZINE HCL 25 MG TABLET PO SCH ×2 (11:49→22:58)
[2017-10-18] MEDS: DOCUSATE SODIUM 100 MG CAPSULE PO SCH ×2 (11:49→17:46)
[2017-10-18] MEDS: NITROGLYCERIN 10 MG (0.4 MG/HR) PATCH.TD24 TD SCH (11:50)
[2017-10-18] MEDS: SODIUM CHLORIDE NASAL SPRAY 44 ML NASL SCH ×4 (11:51→22:59)
[2017-10-18] MEDS: METOLAZONE 2.5 MG TABLET PO SCH (11:51)
[2017-10-18] MEDS: LISINOPRIL 10 MG TABLET PO SCH (11:55)
[2017-10-18] MEDS: LEVOFLOXACIN 500 MG TABLET PO SCH (17:46)
--- NOTE | 2017-10-18 18:51 | PDOC PROGRESS REPORT ---
Subjective Progress Note for:: 10/18/17 Subjective:: Patient seems to be doing better with gradual improvement. Patient still has significant pedal edema but claims that breathing bustos he is better. Patient claims that her leg is less tense and he is losing some weight. Pt is denying any chest arm or neck discomfort. Patient denying any PND, orthopnea. Patient denied any sustained palpitations, dizziness, syncope, near syncope. Patient denying any fever chills. Patient denying any other significant discomfort. Review of systems: Rest review of systems negative. Medications: Medications have been reviewed. Reason For Visit: PLEURAL EFFUSION, PNEUMONIA Physical Exam Vital Signs: Temp Pulse Resp BP Pulse Ox 98.8 F 97 18 132/62 H 94 10/18/17 12:32 10/18/17 15:42 10/18/17 15:42 10/18/17 12:32 10/18/17 15:42 Intake & Output 10/17/17 10/18/17 10/19/17 06:59 06:59 06:59 Intake Total 1298 848 Output Total 1070 1150 Balance 228 -302 Exam: GENERAL: well-nourished and in no acute distress. Alert and oriented x3 HEAD: Atraumatic, normocephalic. EYES: Pupils equal round and reactive to light, extraocular movements intact, sclera anicteric, conjunctiva are normal. ENT: TMs normal, nares patent, oropharynx clear without exudates. Moist mucous membranes. No oral ulcerations or bleeding gums noted NECK: supple without lymphadenopathy. Trachea is central. No cervical or axillary lymphadenopathy noted. Carotids are 2+, JVD 8-10 cm LUNGS: Respiration seems nonlabored, no significant accessory muscle action noted. Breath sounds clear to auscultation bilaterally and equal noted. No wheezes rales or rhonchi noted. Mild dullness noted right base. CHEST: Palpation of the chest wall shows no significant chest wall tenderness. HEART: [place] COLLEGE INTERN, No PSH, 1/6 TEGAN aortic area, 1/6 merrill systolic murmur mitral area, no rubs, no gallops. ABDOMEN: Soft, no significant tenderness appreciated, normoactive bowel sounds. No guarding, no rebound. No rigidity noted . No masses appreciated. EXTREMITIES: Pedal pulses are 1-2+, no calf tenderness noted. No clubbing or cyanosis. 2+ pedal edema noted NEUROLOGICAL: Focused neurological exam showed no significant neurologic deficit. Normal speech, no focal weakness appreciated. PSYCH: Normal mood, normal affect. Judgment and insight within normal limits. SKIN: No significant ecchymosis, skin is noted to be warm. MUSCULOSKELETAL EXAM: No significant acute joint swelling noted. Results Laboratory Results: 10/17/17 04:13 10/18/17 04:41 10/18/17 04:41 Sodium 126.6 L Potassium 4.5 Chloride 93 L Carbon Dioxide 25 Anion Gap 9 BUN 41 H Creatinine 2.23 H Est GFR ( Amer) 34 L Est GFR (Non-Af Amer) 28 L Glucose 266 H Calcium 9.4 10/14/17 10:30 Bronchial Washings Fungal Smear - Final 10/14/17 10:30 Bronchial Washings Fungal Smear - Final 10/14/17 10:30 Bronchial Washings AFB Smear Concentration - Final 10/14/17 10:30 Bronchial Washings Acid Fast Bacilli Smear - Final 10/11/17 10/11/17 10/11/17 13:20 13:20 16:55 Creatine Kinase 115 CK-MB (CK-2) Troponin I 0.014 < 0.012 NT-Pro-B Natriuret Pep 7010 H 10/12/17 10/12/17 10/12/17 10:33 10:33 14:41 Creatine Kinase 81 78 CK-MB (CK-2) 2.23 Troponin I < 0.012 NT-Pro-B Natriuret Pep 10/12/17 10/12/17 10/12/17 14:41 21:06 21:06 Creatine Kinase 78 CK-MB (CK-2) 2.52 2.55 Troponin I 0.016 0.020 NT-Pro-B Natriuret Pep 10/17/17 10/17/17 10/17/17 10:10 10:10 16:10 Creatine Kinase 34 L 30 L CK-MB (CK-2) 1.30 Troponin I 0.020 NT-Pro-B Natriuret Pep 10/17/17 10/17/17 10/17/17 16:10 21:11 21:11 Creatine Kinase 26 L CK-MB (CK-2) 1.29 1.11 Troponin I 0.021 0.022 NT-Pro-B Natriuret Pep Impressions: Thoracentesis Ultrasound 10/12/17 00:00 IMPRESSION: SUCCESSFUL THORACENTESIS USING ULTRASOUND GUIDANCE. Chest X-Ray 10/17/17 00:00 IMPRESSION: Trace bilateral pleural effusions, increased since chest film 2017. Postobstructive collapse and consolidation left lower lobe from malignant left lower hilar mass seen better on CT chest/PET-CT. 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 mellitus intermediate insulin use: with intermediate use Diabetes mellitus complication status: with kidney complications Chronic kidney disease stage: stage 3 (moderate) Is this a current diagnosis for this admission?: Yes (5) Hypertensive disorder Qualifiers: Hypertension type: essential hypertension Qualified Code(s): I10 - Essential (primary) hypertension (6) Atrial fibrillation Qualifiers: Atrial fibrillation type: chronic Qualified Code(s): I48.2 - Chronic atrial fibrillation Is this a current diagnosis for this admission?: Yes (7) Wide-complex tachycardia Is this a current diagnosis for this admission?: Yes - Notes Notes: CHF: Continue with diuretics. Swelling and dyspnea is improving. Monitor daily weights, may monitor BNP and chest x-ray serially. Renal function seems some mild worsening. Lung mass and left pleural effusion: Patient being evaluated by oncologist. Left pleural effusion could be partly from CHF. Chest x-ray shows underlying lung mass with atelectasis as well as pleural effusion. On chest x-ray yesterday, left pleural effusion was noted to be significantly improved. Atrial fibrillation: Recommend rate control and chronic anticoagulation. Continue amiodarone therapy. At patient age should be with acceptable side effects. Patient however would need chronic anticoagulation. We will leave decision about chronic anticoagulation with the oncologist as patient may need biopsy and oncologic therapy. Hypertension: Blood pressure goal should be 140/90 or less. 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 Wide-complex tachycardia: Continue amiodarone therapy. Maintain electrolytes within WNL - Time Time with patient: Greater than 35 minutes - CODE STATUS was discussed, patient remains full code. Surrogate decision-maker patient's son. Multiple medical problems were addressed. More than 50% of the time spent coordinating care, discussing management plans with involved caregivers. Management plans discussed with involved personnels. Medical decision making was of moderate to high complexity, patient's has multiple comorbidities. Medications reviewed and adjusted accordingly: Yes
[2017-10-18] MEDS: SIMVASTATIN 40 MG TABLET PO SCH (22:58)
[2017-10-18 23:59] VITALS: BP 105/68
[2017-10-19 09:21] LABS: ABSOLUTE BASOPHILS # (AUTO) 0.1 10^3/uL (0.0-0.2); ABSOLUTE EOSINOPHILS # (AUTO) 0.4 10^3/uL (0.0-0.6); ABSOLUTE LYMPHOCYTES (AUTO) 0.8 10^3/uL (0.5-4.7); ABSOLUTE NEUT (AUTO) 8.1 10^3/uL (1.7-8.2); BASOPHILS % (AUTO) 0.9 % (0-2); EOSINOPHILS % (AUTO) 3.6 % (0-6); HEMOGLOBIN 8.8 g/dL (13.5-17.0); LYMPHOCYTES % (AUTO) 7.7 % (13-45); MEAN CORPUSCULAR HEMOGLOBIN 26.4 pg (27.0-33.4); MEAN CORPUSCULAR HGB CONC 33.7 g/dL (32.0-36.0); MEAN CORPUSCULAR VOLUME 78 fl (80-97); MONOCYTES % (AUTO) 9.3 % (3-13); PLATELET COUNT 275 10^3/uL (150-450); RED BLOOD COUNT 3.32 10^6/uL (4.35-5.55); RED CELL DISTRIBUTION WIDTH 16.8 % (11.5-14.0); SEGMENTED NEUTROPHILS % (AUTO) 78.5 % (42-78); TOTAL CELLS COUNTED % (AUTO) 100 %; WHITE BLOOD COUNT 10.4 10^3/uL (4.0-10.5)
[2017-10-19] MEDS: LEVALBUTEROL HCL NEB 1.25 MG/3 ML AMPUL NEB SCH ×2 (09:26→12:08)
[2017-10-19 09:29] LABS: ANION GAP 10 (5-19); BLOOD UREA NITROGEN 41 mg/dL (7-20); CALCIUM 8.9 mg/dL (8.4-10.2); CARBON DIOXIDE 26 mmol/L (22-30); CHLORIDE 93 mmol/L (98-107); GLUCOSE 140 mg/dL (75-110); POTASSIUM 4.2 mmol/L (3.6-5.0); SODIUM 128.5 mmol/L (137-145)
[2017-10-19] MEDS: FUROSEMIDE INJ/PF 40 MG/4 ML SDV IV SCH (11:51)
[2017-10-19] MEDS: LANSOPRAZOLE 30 MG TAB.RAP.DR PO SCH (11:51)
[2017-10-19] MEDS: HYDRALAZINE HCL 25 MG TABLET PO SCH (12:00)
[2017-10-19] MEDS: LACTULOSE SYRUP 20 GM/30 ML UDCUP PO SCH (12:00)
[2017-10-19] MEDS: AMIODARONE HCL 200 MG TABLET PO SCH (12:00)
[2017-10-19] MEDS: NITROGLYCERIN 10 MG (0.4 MG/HR) PATCH.TD24 TD SCH (12:00)
[2017-10-19] MEDS: APIXABAN 2.5 MG TABLET PO SCH (12:01)
[2017-10-19] MEDS: LISINOPRIL 10 MG TABLET PO SCH (12:01)
[2017-10-19] MEDS: METOLAZONE 2.5 MG TABLET PO SCH (12:01)
[2017-10-19] MEDS: DOCUSATE SODIUM 100 MG CAPSULE PO SCH (12:02)
[2017-10-19] MEDS: SODIUM CHLORIDE NASAL SPRAY 44 ML NASL SCH (12:02)
--- NOTE | 2017-10-19 13:03 | PDOC PROGRESS REPORT ---
Subjective Progress Note for:: 10/19/17 Subjective:: Pt doing better this am, PT has worked with him and has recommended home PT regimen, home 02 eval done Reason For Visit: PLEURAL EFFUSION, PNEUMONIA Physical Exam Vital Signs: Temp Pulse Resp BP Pulse Ox 98.5 F 100 16 105/68 97 10/18/17 23:58 10/19/17 12:08 10/19/17 12:08 10/18/17 23:58 10/19/17 12:08 Intake & Output 10/18/17 10/19/17 10/20/17 06:59 06:59 06:59 Intake Total 848 505 Output Total 1150 1875 Balance -302 -1370 General appearance: PRESENT: no acute distress, well-developed, well-nourished Head exam: PRESENT: atraumatic, normocephalic Eye exam: PRESENT: conjunctiva pink, EOMI, PERRLA. ABSENT: scleral icterus Ear exam: PRESENT: normal external ear exam Mouth exam: PRESENT: moist, tongue midline Neck exam: ABSENT: carotid bruit, JVD, lymphadenopathy, thyromegaly Respiratory exam: PRESENT: clear to auscultation ferny. ABSENT: rales, rhonchi, wheezes Cardiovascular exam: PRESENT: RRR. ABSENT: diastolic murmur, rubs, systolic murmur Pulses: PRESENT: normal dorsalis pedis pul Vascular exam: PRESENT: normal capillary refill GI/Abdominal exam: PRESENT: normal bowel sounds, soft. ABSENT: distended, guarding, mass, organolmegaly, rebound, tenderness Rectal exam: PRESENT: deferred Extremities exam: PRESENT: full ROM. ABSENT: calf tenderness, clubbing, pedal edema Neurological exam: PRESENT: alert, awake, oriented to person, oriented to place , oriented to time, oriented to situation, CN II-XII grossly intact. ABSENT: motor sensory deficit Psychiatric exam: PRESENT: appropriate affect, normal mood. ABSENT: homicidal ideation, suicidal ideation Skin exam: PRESENT: dry, intact, warm. ABSENT: cyanosis, rash Results Laboratory Results: 10/19/17 04:55 10/19/17 04:55 10/19/17 10/19/17 04:55 04:55 WBC 10.4 RBC 3.32 L Hgb 8.8 L Hct 26.0 L MCV 78 L MCH 26.4 L MCHC 33.7 RDW 16.8 H Plt Count 275 Seg Neutrophils % 78.5 H Lymphocytes % 7.7 L Monocytes % 9.3 Eosinophils % 3.6 Basophils % 0.9 Absolute Neutrophils 8.1 Absolute Lymphocytes 0.8 Absolute Monocytes 1.0 Absolute Eosinophils 0.4 Absolute Basophils 0.1 Sodium 128.5 L Potassium 4.2 Chloride 93 L Carbon Dioxide 26 Anion Gap 10 BUN 41 H Creatinine 2.25 H Est GFR ( Amer) 34 L Est GFR (Non-Af Amer) 28 L Glucose 140 H Calcium 8.9 Magnesium 1.8 10/11/17 10/11/17 10/11/17 13:20 13:20 16:55 Creatine Kinase 115 CK-MB (CK-2) Troponin I 0.014 < 0.012 NT-Pro-B Natriuret Pep 7010 H 10/12/17 10/12/17 10/12/17 10:33 10:33 14:41 Creatine Kinase 81 78 CK-MB (CK-2) 2.23 Troponin I < 0.012 NT-Pro-B Natriuret Pep 10/12/17 10/12/17 10/12/17 14:41 21:06 21:06 Creatine Kinase 78 CK-MB (CK-2) 2.52 2.55 Troponin I 0.016 0.020 NT-Pro-B Natriuret Pep 10/17/17 10/17/17 10/17/17 10:10 10:10 16:10 Creatine Kinase 34 L 30 L CK-MB (CK-2) 1.30 Troponin I 0.020 NT-Pro-B Natriuret Pep 10/17/17 10/17/17 10/17/17 16:10 21:11 21:11 Creatine Kinase 26 L CK-MB (CK-2) 1.29 1.11 Troponin I 0.021 0.022 NT-Pro-B Natriuret Pep Impressions: Thoracentesis Ultrasound 10/12/17 00:00 IMPRESSION: SUCCESSFUL THORACENTESIS USING ULTRASOUND GUIDANCE. Chest X-Ray 10/17/17 00:00 IMPRESSION: Trace bilateral pleural effusions, increased since chest film 2017. Postobstructive collapse and consolidation left lower lobe from malignant left lower hilar mass seen better on CT chest/PET-CT. Assessment & Plan - Diagnosis (1) Pleural effusion Is this a current diagnosis for this admission?: Yes Plan: Non-diagnostic cytology, will possibly reaccumulate (2) Lung mass Is this a current diagnosis for this admission?: Yes Plan: Needs bx done thru [facility], we have appt w/ Dr. Mckeon there on 11/02/17, we will see pt back next week and give that info to pt
--- NOTE | 2017-10-19 13:32 | PDOC DISCHARGE SUMMARY ---
General - Admit/Disc Date/PCP Admission Date/Primary Care Provider: 10/11/17 13:09 JAKE CAMARENA MD Discharge Date: 10/19/17 - Discharge Diagnosis (1) Pleural effusion Is this a current diagnosis for this admission?: Yes (2) Atrial fibrillation Is this a current diagnosis for this admission?: Yes (3) Congestive heart failure Is this a current diagnosis for this admission?: Yes (4) Diabetes mellitus, type 2 Is this a current diagnosis for this admission?: Yes (5) Constipation Is this a current diagnosis for this admission?: Yes (6) Lung mass Is this a current diagnosis for this admission?: Yes (7) Hyponatremia Is this a current diagnosis for this admission?: Yes - Additional Information Resuscitation Status: Full Code Discharge Diet: Cardiac, Diabetic Discharge Activity: Activity As Tolerated, Balance Activity w/Rest, Energy Conservation, Keep Legs Elevated Prescriptions: Amiodarone HCl [Cordarone 200 mg Tablet] 200 mg PO Q12 30 Days #60 tablet Docusate Sodium [Colace 100 mg Capsule] 100 mg PO BID 30 Days #60 capsule Hydralazine HCl [Apresoline 25 mg Tablet] 25 mg PO Q12 30 Days #60 tablet Insulin Detemir [Levemir Insulin 100 units/mL] 45 unit SUBCUT QHS 30 Days #1 insuln.pen Levalbuterol HCl [Xopenex Neb 1.25 mg/3 ml Ampul] 1.25 mg NEB [id number] 30 Days # 120 vial.neb Levofloxacin [Levaquin 500 mg Tablet] 500 mg PO QPM 5 Days #5 tablet Metolazone [Zaroxolyn 2.5 mg Tablet] 2.5 mg PO DAILY 30 Days #30 tablet Nitroglycerin [Nitro-Dur 10 mg (0.4MG/Hr) Transdermal Patch] 1 each TD DAILY 30 Days #30 patch.td24 Home Medications: Amitriptyline HCl [Elavil 25 mg Tablet] 25 mg PO TIDP PRN 10/11/17 Ascorbic Acid [Vitamin C 500 mg Tablet] 500 mg PO TID 10/11/17 Aspirin [Aspirin EC] 81 mg PO DAILY 10/11/17 Dicyclomine HCl [Bentyl 10 mg Capsule] 10 mg PO QID 10/11/17 Ferrous Sulfate [Feosol 325 mg Tablet] 325 mg PO TID 10/11/17 Insulin Aspart [Novolog Flexpen] 10 unit SQ TID 10/11/17 Lisinopril [Prinivil] 20 mg PO DAILY 10/11/17 Simvastatin [Zocor 40 mg Tablet] 40 mg PO QPM 10/11/17 Acetaminophen [Tylenol 325 mg Tablet] 650 mg PO Q6HP PRN tablet 10/19/17 Amiodarone HCl [Cordarone 200 mg Tablet] 200 mg PO Q12 30 Days #60 tablet Calcium Carbonate [Tums Chewable 500 mg Tab.chew] 500 mg PO Q8HP PRN tab.chew 10/19/17 Docusate Sodium [Colace 100 mg Capsule] 100 mg PO BID 30 Days #60 capsule Hydralazine HCl [Apresoline 25 mg Tablet] 25 mg PO Q12 30 Days #60 tablet Insulin Detemir [Levemir Insulin 100 units/mL] 45 unit SUBCUT QHS 30 Days #1 insuln.pen 10/19/17 Levalbuterol HCl [Xopenex Neb 1.25 mg/3 ml Ampul] 1.25 mg NEB [id number] 30 Days # 120 vial.neb 10/19/17 Levofloxacin [Levaquin 500 mg Tablet] 500 mg PO QPM 5 Days #5 tablet 10/19/17 Lisinopril [Prinivil 10 mg Tablet] 20 mg PO DAILY tablet 10/19/17 Metolazone [Zaroxolyn 2.5 mg Tablet] 2.5 mg PO DAILY 30 Days #30 tablet Nitroglycerin [Nitro-Dur 10 mg (0.4MG/Hr) Transdermal Patch] 1 each TD DAILY 30 Days #30 patch.td24 10/19/17 Simvastatin [Zocor 40 mg Tablet] 40 mg PO QHS tablet 10/19/17 History of Present Illness History of Present Illness: Patient was brought in from home because of progressive shortness of breath, cough, had some hemoptysis, leg swelling. He has had an outpatient CT which showed a left lower lung mass with effusion that had increased in size and was admitted for diagnostic and therapeutic thoracentesis and possible biopsy. Hospital Course Hospital Course: Patient came into the hospital was put on supplemental oxygen broad-spectrum antibiotics beta-2 agonists he was seen by hematology oncology within 24 hours he had a diagnostic and therapeutic thoracentesis over 1000 cc were removed. Pulmonary was consulted at which time underwent on day 3 bronchoscopy of the left lower lung area in question. Throughout his hospital course he was found to have an increase in fluid with subsequent hyponatremia. His diuretics were adjusted and he started showing reversion in the hyponatremia prior to discharge was 128. By 24 hours prior he had had a negative balance of 1.4 L. He has also found an increase in his creatinine to 2.29 at which time his metformin was discontinued and his insulin was increased to prior to discharge to 45 units. Unfortunately thoracentesis and bronchoscopy came back nonconclusive. Discussion was had with pulmonary cardiology and with oncology and it was felt that the patient will be better served to go home be followed up as an outpatient by oncologist and then sent to [facility] for possible diagnostic biopsy. Throughout his hospital course he was also shown to have A. fib echo was done which showed overall good left ejection fraction but pulmonary hypertension he was placed on amiodarone decision as to anticoagulation decided to hold because of the upcoming biopsy that would be required. Risks benefits were explained to patient with oncology present. After which the above was done he was felt stable for home he will be sent home with oxygen PT OT lymphedema wraps and will follow-up in the office. Physical Exam Vital Signs: Temp Pulse Resp BP Pulse Ox 98.5 F 100 16 105/68 97 10/19/17 13:09 10/19/17 13:09 10/19/17 13:09 10/19/17 13:09 10/19/17 13:09 Intake & Output 10/18/17 10/19/17 10/20/17 06:59 06:59 06:59 Intake Total 848 505 Output Total 1150 1875 Balance -302 -1370 General appearance: PRESENT: no acute distress Head exam: PRESENT: atraumatic, normocephalic Eye exam: PRESENT: conjunctiva pink, EOMI, PERRLA. ABSENT: scleral icterus Ear exam: PRESENT: normal external ear exam Mouth exam: PRESENT: moist, tongue midline Neck exam: PRESENT: full ROM. ABSENT: carotid bruit, JVD, lymphadenopathy, thyromegaly Respiratory exam: PRESENT: decreased breath sounds Cardiovascular exam: PRESENT: irregular rhythm, systolic murmur Murmur grade: 2 Pulses: PRESENT: normal dorsalis pedis pul, +2 pedal pulses bilateral Vascular exam: PRESENT: normal capillary refill GI/Abdominal exam: PRESENT: normal bowel sounds, soft. ABSENT: distended, guarding, mass, organolmegaly, rebound, tenderness Rectal exam: PRESENT: deferred Additional comments: She has bilateral lower leg edema 1+ to the areas at the knees with some mild erythema no warmth or tenderness Neurological exam: PRESENT: alert, awake, oriented to person, oriented to place , oriented to time, oriented to situation, CN II-XII grossly intact. ABSENT: motor sensory deficit Psychiatric exam: PRESENT: appropriate affect, normal mood. ABSENT: homicidal ideation, suicidal ideation Skin exam: PRESENT: dry, intact, warm. ABSENT: cyanosis, rash Results Laboratory Results: 10/19/17 04:55 10/19/17 04:55 10/19/17 10/19/17 04:55 04:55 WBC 10.4 RBC 3.32 L Hgb 8.8 L Hct 26.0 L MCV 78 L MCH 26.4 L MCHC 33.7 RDW 16.8 H Plt Count 275 Seg Neutrophils % 78.5 H Lymphocytes % 7.7 L Monocytes % 9.3 Eosinophils % 3.6 Basophils % 0.9 Absolute Neutrophils 8.1 Absolute Lymphocytes 0.8 Absolute Monocytes 1.0 Absolute Eosinophils 0.4 Absolute Basophils 0.1 Sodium 128.5 L Potassium 4.2 Chloride 93 L Carbon Dioxide 26 Anion Gap 10 BUN 41 H Creatinine 2.25 H Est GFR ( Amer) 34 L Est GFR (Non-Af Amer) 28 L Glucose 140 H Calcium 8.9 Magnesium 1.8 10/11/17 10/11/17 10/11/17 13:20 13:20 16:55 Creatine Kinase 115 CK-MB (CK-2) Troponin I 0.014 < 0.012 NT-Pro-B Natriuret Pep 7010 H 10/12/17 10/12/17 10/12/17 10:33 10:33 14:41 Creatine Kinase 81 78 CK-MB (CK-2) 2.23 Troponin I < 0.012 NT-Pro-B Natriuret Pep 10/12/17 10/12/17 10/12/17 14:41 21:06 21:06 Creatine Kinase 78 CK-MB (CK-2) 2.52 2.55 Troponin I 0.016 0.020 NT-Pro-B Natriuret Pep 10/17/17 10/17/17 10/17/17 10:10 10:10 16:10 Creatine Kinase 34 L 30 L CK-MB (CK-2) 1.30 Troponin I 0.020 NT-Pro-B Natriuret Pep 10/17/17 10/17/17 10/17/17 16:10 21:11 21:11 Creatine Kinase 26 L CK-MB (CK-2) 1.29 1.11 Troponin I 0.021 0.022 NT-Pro-B Natriuret Pep Impressions: Thoracentesis Ultrasound 10/12/17 00:00 IMPRESSION: SUCCESSFUL THORACENTESIS USING ULTRASOUND GUIDANCE. Chest X-Ray 10/17/17 00:00 IMPRESSION: Trace bilateral pleural effusions, increased since chest film 2017. Postobstructive collapse and consolidation left lower lobe from malignant left lower hilar mass seen better on CT chest/PET-CT. Qualifiers - * PATIENT BEING DISCHARGED WITH ANY OF THE FOLLOWING DIAGNOSIS: No Plan Discharge Plan: Will be discharged home with home oxygen, nebulizer, home OT PT, bedside commode , walker he will also have lymphedema wraps, he will follow-up with oncology in 1 week and with primary care in 1 week. Time Spent: Less than 30 Minutes
--- NOTE | 2017-10-19 20:31 | PDOC PROGRESS REPORT ---
Subjective Progress Note for:: 10/19/17 Subjective:: Patient seems to be doing better with gradual improvement. Patient still has significant pedal edema but claims that breathing bustos he is better. Patient claims that her leg is less tense and he is losing some weight. Pt is denying any chest arm or neck discomfort. Patient denying any PND, orthopnea. Patient denied any sustained palpitations, dizziness, syncope, near syncope. Patient denying any fever chills. Patient denying any other significant discomfort. Review of systems: Rest review of systems negative. Medications: Medications have been reviewed. Reason For Visit: PLEURAL EFFUSION, PNEUMONIA Physical Exam Vital Signs: Temp Pulse Resp BP Pulse Ox 98.5 F 100 16 105/68 97 10/19/17 13:09 10/19/17 13:10/19/17 13:10/19/17 13:10/19/17 13:09 Intake & Output 10/18/17 10/19/17 10/20/17 06:59 06:59 06:59 Intake Total 848 505 Output Total 1150 1875 Balance -302 -1370 Exam: GENERAL: well-nourished and in no acute distress. Alert and oriented x3 HEAD: Atraumatic, normocephalic. EYES: Pupils equal round and reactive to light, extraocular movements intact, sclera anicteric, conjunctiva are normal. ENT: TMs normal, nares patent, oropharynx clear without exudates. Moist mucous membranes. No oral ulcerations or bleeding gums noted NECK: supple without lymphadenopathy. Trachea is central. No cervical or axillary lymphadenopathy noted. Carotids are 2+, JVD 8-10 cm LUNGS: Respiration seems nonlabored, no significant accessory muscle action noted. Mostly clear with mild dullness left base being noted. CHEST: Palpation of the chest wall shows no significant chest wall tenderness. 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 ABDOMEN: Soft, no significant tenderness appreciated, normoactive bowel sounds. No guarding, no rebound. No rigidity noted . No masses appreciated. EXTREMITIES: Pedal pulses are 1-2+, no calf tenderness noted. No clubbing or cyanosis. 1+ pedal edema noted NEUROLOGICAL: Focused neurological exam showed no significant neurologic deficit. Normal speech, no focal weakness appreciated. PSYCH: Normal mood, normal affect. Judgment and insight within normal limits. SKIN: No significant ecchymosis, skin is noted to be warm. MUSCULOSKELETAL EXAM: No significant acute joint swelling noted. Results Laboratory Results: 10/19/17 04:55 10/19/17 04:55 10/19/17 10/19/17 04:55 04:55 WBC 10.4 RBC 3.32 L Hgb 8.8 L Hct 26.0 L MCV 78 L MCH 26.4 L MCHC 33.7 RDW 16.8 H Plt Count 275 Seg Neutrophils % 78.5 H Lymphocytes % 7.7 L Monocytes % 9.3 Eosinophils % 3.6 Basophils % 0.9 Absolute Neutrophils 8.1 Absolute Lymphocytes 0.8 Absolute Monocytes 1.0 Absolute Eosinophils 0.4 Absolute Basophils 0.1 Sodium 128.5 L Potassium 4.2 Chloride 93 L Carbon Dioxide 26 Anion Gap 10 BUN 41 H Creatinine 2.25 H Est GFR ( Amer) 34 L Est GFR (Non-Af Amer) 28 L Glucose 140 H Calcium 8.9 Magnesium 1.8 10/11/17 10/11/17 10/11/17 13:20 13:20 16:55 Creatine Kinase 115 CK-MB (CK-2) Troponin I 0.014 < 0.012 NT-Pro-B Natriuret Pep 7010 H 10/12/17 10/12/17 10/12/17 10:33 10:33 14:41 Creatine Kinase 81 78 CK-MB (CK-2) 2.23 Troponin I < 0.012 NT-Pro-B Natriuret Pep 10/12/17 10/12/17 10/12/17 14:41 21:06 21:06 Creatine Kinase 78 CK-MB (CK-2) 2.52 2.55 Troponin I 0.016 0.020 NT-Pro-B Natriuret Pep 10/17/17 10/17/17 10/17/17 10:10 10:10 16:10 Creatine Kinase 34 L 30 L CK-MB (CK-2) 1.30 Troponin I 0.020 NT-Pro-B Natriuret Pep 10/17/17 10/17/17 10/17/17 16:10 21:11 21:11 Creatine Kinase 26 L CK-MB (CK-2) 1.29 1.11 Troponin I 0.021 0.022 NT-Pro-B Natriuret Pep Impressions: Thoracentesis Ultrasound 10/12/17 00:00 IMPRESSION: SUCCESSFUL THORACENTESIS USING ULTRASOUND GUIDANCE. Chest X-Ray 10/17/17 00:00 IMPRESSION: Trace bilateral pleural effusions, increased since chest film 2017. Postobstructive collapse and consolidation left lower lobe from malignant left lower hilar mass seen better on CT chest/PET-CT. 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: with superintendent container terminal use Diabetes mellitus complication status: with kidney complications Chronic kidney disease stage: stage 3 (moderate) Is this a current diagnosis for this admission?: Yes (5) Hypertensive disorder Qualifiers: Hypertension type: essential hypertension Qualified Code(s): I10 - Essential (primary) hypertension (6) Atrial fibrillation Qualifiers: Atrial fibrillation type: chronic Qualified Code(s): I48.2 - Chronic atrial fibrillation Is this a current diagnosis for this admission?: Yes (7) Wide-complex tachycardia Is this a current diagnosis for this admission?: Yes - Notes Notes: Patient has shown significant slow but gradual improvement. Patient has been noted to be on the special cardiac regimen. Patient can follow-up with me if he wishes. I am told that he is ready for discharge. Will be happy to follow him as an outpatient. Patient's medications were reviewed and felt to be satisfactory. - Time Time with patient: 15-25 minutes - More than 50% of the time spent coordinating care, discussing management plans with involved caregivers. Management plans discussed with involved personnels. Medical decision making was of moderate to high complexity, patient's has multiple comorbidities. Medications reviewed and adjusted accordingly: Yes
== END 2017-10-19 13:53 | disposition home or self-care (01) | DRG 291 ==
LOC: ER 12:11 → EH 13:09 → 3N 15:08 → 3W 10-15 18:37
PROVIDERS: ADMIT Internal Medicine; ATTEND Internal Medicine
PROC: 0W9B3ZX Drainage of Left Pleural Cavity, Percutaneous Approach, Diagnostic (ICD-10-PCS; 2017-10-12)
PROC: 0BBB8ZX Excision of Left Lower Lobe Bronchus, Via Natural or Artificial Opening Endoscopic, Diagnostic (ICD-10-PCS; principal; 2017-10-14 09:00)
DX: I13.0 Hypertensive heart and chronic kidney disease with heart failure and stage 1 through stage 4 chronic kidney disease, or unspecified chronic kidney disease (principal); I50.31 Acute diastolic (congestive) heart failure; J90 Pleural effusion, not elsewhere classified; I47.2 Ventricular tachycardia; E87.1 Hypo-osmolality and hyponatremia; E11.22 Type 2 diabetes mellitus with diabetic chronic kidney disease; N18.3 Chronic kidney disease, stage 3 (moderate); I25.10 Atherosclerotic heart disease of native coronary artery without angina pectoris; I48.2 Chronic atrial fibrillation; J44.9 Chronic obstructive pulmonary disease, unspecified; K44.9 Diaphragmatic hernia without obstruction or gangrene; E78.5 Hyperlipidemia, unspecified; Z79.82 Long term (current) use of aspirin; Z79.899 Other long term (current) drug therapy; Z79.84 Long term (current) use of oral hypoglycemic drugs; Z95.1 Presence of aortocoronary bypass graft; Z87.891 Personal history of nicotine dependence; Z88.0 Allergy status to penicillin; Z88.2 Allergy status to sulfonamides; Z88.8 Allergy status to other drugs, medicaments and biological substances
CPT/HCPCS: 31624; 31625; 32555; 36415; 71045; 71046; 80048; 80053; 81001; 82533; 82550; 82553; 82803; 82962; 83605; 83615; 83735; 83880; 84157; 84300; 84443; 84484; 85025; 85379; 85610; 85730; 87015; 87070; 87075; 87101; 87116; 87205; 87206; 88305; 88341; 88342; 89050; 93005; 93010; 93306; 94640; G8978-GP; G8979-GP; G8987-GO; G8988-GO; J0171; J0360; J1200; J1610; J1815; J1940; J1956; J2250; J2310; J2405; J3010; J3490

== ENCOUNTER 2017-11-28 10:56 | Inpatient (IN) | payer MEDICARE ==
[2017-11-28] MEDS ORDERED: NORMAL SALINE 500 ML IV ONE (11:30)
--- NOTE | 2017-11-28 11:33 | ER Document Report ---
ED Medical Screen (RME) - General Chief Complaint: General Weakness Stated Complaint: BLOOD PRESSURE PROBLEM Time Seen by Provider: 11/28/17 11:22 Mode of Arrival: Ambulatory Information source: Patient Notes: 81-year-old male brought to the emergency department by family for complaints of generalized weakness. Patient was just diagnosed with lung cancer a week ago. He was scheduled for his first round of chemotherapy today by Dr. Brennan felt that he was too weak for the chemotherapy. He sent the patient to the ED for evaluation. Patient has been hypotensive for the last few days. Family deny fever. Patient has had decreased urine output, decreased bowel movements and a non-productive cough. I have greeted and performed a rapid initial assessment of this patient. A comprehensive ED assessment and evaluation of the patient, analysis of test results and completion of the medical decision making process will be conducted by additional ED providers. PHYSICAL EXAMINATION: GENERAL: Ill appearing. HEAD: Atraumatic, normocephalic. EYES: Pupils equal round extraocular movements intact, conjunctiva are normal. ENT: Nares patent NECK: Normal range of motion LUNGS: No respiratory distress Musculoskeletal: Normal range of motion. 2+ pitting edema. NEUROLOGICAL: Normal speech. PSYCH: Normal mood, normal affect. SKIN: Warm, Dry, normal turgor, no rashes or lesions noted. TRAVEL OUTSIDE OF THE [place] IN LAST 30 DAYS: No - Related Data Allergies/Adverse Reactions: Penicillins Allergy (Verified 10/11/17 12:13) quinine Allergy (Verified 10/11/17 12:13) Sulfa (Sulfonamide Antibiotics) Allergy (Verified 10/11/17 12:13) Edema Past Medical History - Social History Chew tobacco use (# tins/day): No Frequency of alcohol use: None Drug Abuse: None - Past Medical History Cardiac Medical History: Reports: Hx Congestive Heart Failure, Hx Coronary Artery Disease, Hx Hypercholesterolemia, Hx Hypertension Denies: Hx Heart Attack Pulmonary Medical History: Reports: Hx COPD Denies: Hx Asthma Neurological Medical History: Denies: Hx Cerebrovascular Accident, Hx Seizures Endocrine Medical History: Reports: Hx Diabetes Mellitus Type 2 Renal/ Medical History: Denies: Hx Peritoneal Dialysis Malignancy Medical History: Reports Hx Lung Cancer GI Medical History: Reports: Hx Hiatal Hernia. Denies: Hx Hepatitis, Hx Ulcer Infectious Medical History: Denies: Hx Hepatitis Past Surgical History: Reports: Hx Cardiac Catheterization - stents, Hx Coronary Artery Bypass Graft, Hx Open Heart Surgery - CABG x1. Denies: Hx Pacemaker - Immunizations Hx Diphtheria, Pertussis, Tetanus Vaccination: No Physical Exam - Vital signs Vitals: Temp Pulse Resp BP Pulse Ox 97.5 F 89 20 92/45 L 95 11/28/17 11:08 11/28/17 11:08 11/28/17 11:08 11/28/17 11:08 11/28/17 11:08 Course - Vital Signs Vital signs: Temp Pulse Resp BP Pulse Ox 97.5 F 89 20 92/45 L 95 11/28/17 11:08 11/28/17 11:08 11/28/17 11:08 11/28/17 11:08 11/28/17 11:08 Doctor's Discharge - Discharge Referrals: JAKE CAMARENA MD [Primary Care Provider] - Follow up as needed
--- NOTE | 2017-11-28 13:03 | EKG REPORT ---
SEVERITY:- ABNORMAL ECG - ATRIAL FIBRILLATION NONSPECIFIC INTRAVENTRICULAR CONDUCTION DELAY MINIMAL ST DEPRESSION, LATERAL LEADS : Confirmed by: Henrique Grimm MD 28-Nov-2017 13:02:56
--- NOTE | 2017-11-28 13:09 | RADIOLOGY REPORT (SQ) ---
EXAM DESCRIPTION: CHEST SINGLE VIEW COMPLETED DATE/TIME: 11/28/2017 12:38 pm REASON FOR STUDY: weakness COMPARISON: CT chest 09/12/2017 PET-CT 10/10/2017 Chest films 10/12/2017, 10/13/2017, 10/17/2017 EXAM PARAMETERS: NUMBER OF VIEWS: One view. TECHNIQUE: Single frontal radiographic view of the chest acquired. RADIATION DOSE: NA LIMITATIONS: None. FINDINGS: LUNGS AND PLEURA: Right lung free of focal infiltrates. No right pleural fluid or pneumot horax. On the left side, retrocardiac consolidation is present with trace left pleural fluid. Findings are worrisome for pneumonia. No left pneumothorax. MEDIASTINUM AND HILAR STRUCTURES: No masses. Contour normal. HEART AND VASCULAR STRUCTURES: Stable massive cardiomegaly, old sternotomy and CABG BONES: No acute findings. HARDWARE: None in the chest. OTHER: No other significant finding. IMPRESSION: Left lower lobe consolidation with trace pleural fluid. TECHNICAL DOCUMENTATION: JOB ID: [id number] [employer]- All Rights Reserved Reading location - IP/workstation name: [email or web address]
[2017-11-28 13:23] LABS: ABSOLUTE EOSINOPHILS # (AUTO) 0.1 10^3/uL (0.0-0.6); ABSOLUTE LYMPHOCYTES (AUTO) 0.8 10^3/uL (0.5-4.7); ABSOLUTE MONOCYTES (AUTO) 0.7 10^3/uL (0.1-1.4); ABSOLUTE NEUT (AUTO) 12.4 10^3/uL (1.7-8.2); BASOPHILS % (AUTO) 0.3 % (0-2); EOSINOPHILS % (AUTO) 0.4 % (0-6); HEMATOCRIT 22.4 % (37.9-51.0); LYMPHOCYTES % (AUTO) 5.4 % (13-45); MEAN CORPUSCULAR HGB CONC 32.3 g/dL (32.0-36.0); MEAN CORPUSCULAR VOLUME 77 fl (80-97); MONOCYTES % (AUTO) 5.2 % (3-13); PLATELET COUNT 480 10^3/uL (150-450); RED CELL DISTRIBUTION WIDTH 18.4 % (11.5-14.0); SEGMENTED NEUTROPHILS % (AUTO) 88.7 % (42-78); TOTAL CELLS COUNTED % (AUTO) 100 %
[2017-11-28 13:27] LABS: HEMOGLOBIN 7.2 g/dL (13.5-17.0)
[2017-11-28 13:49] LABS: ALANINE AMINOTRANSFERASE 45 U/L (21-72); ALBUMIN 2.4 g/dL (3.5-5.0); ALKALINE PHOSPHATASE 119 U/L (38-126); ANION GAP 14 (5-19); ASPARTATE AMINO TRANSFERASE 59 U/L (17-59); BILIRUBIN,DIRECT 0.5 mg/dL (0.0-0.4); BILIRUBIN,TOTAL 0.5 mg/dL (0.2-1.3); BLOOD UREA NITROGEN 48 mg/dL (7-20); CALCIUM 7.5 mg/dL (8.4-10.2); CARBON DIOXIDE 29 mmol/L (22-30); CHLORIDE 79 mmol/L (98-107); CREATINE KINASE 94 U/L (55-170); GLUCOSE 113 mg/dL (75-110); SODIUM 121.6 mmol/L (137-145); TOTAL PROTEIN 5.4 g/dL (6.3-8.2)
[2017-11-28] MEDS ORDERED: NORMAL SALINE 1000 ML 1,000 ML IV ONE (13:53)
--- NOTE | 2017-11-28 13:53 | ER Document Report ---
ED General - General Chief Complaint: General Weakness Stated Complaint: BLOOD PRESSURE PROBLEM Time Seen by Provider: 11/28/17 11:22 Mode of Arrival: Ambulatory Notes: 81-year-old male brought to the emergency department by family for complaints of generalized weakness. Patient was just diagnosed with lung cancer a week ago. He was scheduled for his first round of chemotherapy today by Dr. Brennan felt that he was too weak for the chemotherapy. He sent the patient to the ED for evaluation. Patient has been hypotensive for the last few days. Family deny fever. Patient has had decreased urine output, decreased bowel movements and a non-productive cough. The patient's been having chills but denies fevers. Patient was supposed to have chemotherapy today but did not because he was too weak. He denies any black bloody or tarry stools. TRAVEL OUTSIDE OF THE [place] IN LAST 30 DAYS: No - Related Data Allergies/Adverse Reactions: Penicillins Allergy (Verified 10/11/17 12:13) quinine Allergy (Verified 10/11/17 12:13) Sulfa (Sulfonamide Antibiotics) Allergy (Verified 10/11/17 12:13) Edema Past Medical History - General Information source: Patient - Social History Smoking Status: Former Smoker Chew tobacco use (# tins/day): No Frequency of alcohol use: None Drug Abuse: None Family History: DM, Hypertension Patient has suicidal ideation: No Patient has homicidal ideation: No - Past Medical History Cardiac Medical History: Reports: Hx Congestive Heart Failure, Hx Coronary Artery Disease, Hx Hypercholesterolemia, Hx Hypertension Denies: Hx Heart Attack Pulmonary Medical History: Reports: Hx COPD Denies: Hx Asthma Neurological Medical History: Denies: Hx Cerebrovascular Accident, Hx Seizures Endocrine Medical History: Reports: Hx Diabetes Mellitus Type 2 Renal/ Medical History: Denies: Hx Peritoneal Dialysis Malignancy Medical History: Reports Hx Lung Cancer GI Medical History: Reports: Hx Hiatal Hernia. Denies: Hx Hepatitis, Hx Ulcer Infectious Medical History: Denies: Hx Hepatitis Past Surgical History: Reports: Hx Cardiac Catheterization - stents, Hx Coronary Artery Bypass Graft, Hx Open Heart Surgery - CABG x1. Denies: Hx Pacemaker - Immunizations Hx Diphtheria, Pertussis, Tetanus Vaccination: No Review of Systems - Review of Systems Constitutional: Chills. denies: Fever EENT: denies: Throat pain Cardiovascular: denies: Chest pain, Dyspnea Respiratory: denies: Short of breath Gastrointestinal: denies: Abdominal pain Genitourinary: denies: Dysuria Hematologic/Lymphatic: Anemia, Easy bruising Neurological/Psychological: Weakness. denies: Sensory change, Headaches, Numbness -: Yes All other systems reviewed and negative Physical Exam - Vital signs Vitals: Temp Pulse Resp BP Pulse Ox 97.5 F 89 20 92/45 L 95 11/28/17 11:08 11/28/17 11:08 11/28/17 11:08 11/28/17 11:08 11/28/17 11:08 - Notes Notes: GENERAL_APPEARANCE: well_nourished, alert, cooperative, chronically ill- appearing VITALS: reviewed, see vital signs table. HEAD: no_swelling\tenderness on the head. EYES: PERRL, EOMI, conjunctiva_clear. NOSE: no_nasal_discharge. MOUTH: Dry mucous membranes THROAT: no_tonsilar_inflammation, no_airway_obstruction. no_lymphadenopathy NECK: supple, no_neck_tenderness, (-)thyromegaly. BACK: no_back_tenderness. CHEST_WALL: no_chest_tenderness. LUNGS: no_wheezing, no_rales, no_rhonchi, (-)accessory muscle use, good air exchange bilateral. HEART: normal_rate, normal_rhythm, normal_S1, normal_S2, (-)S3, (-)S4, no_ murmur, no_rub. ABDOMEN: normal_BS, soft, no_abd_tenderness, (-)guarding, (-)rebound, no_ organomegaly, no_abd_masses. EXTREMITIES: strength 5/5 in all_extremities, good pulses in all_extremities, 3+ edema wrapped_edema. SKIN: warm, dry, good_color, no_rash. MENTAL_STATUS: speech_slow, oriented_X_3, normal_affect, responds_ appropriately to questions. Course - Re-evaluation Re-evalutation: 11/28/17 13:52 81-year-old male resents to the ER with generalized weakness. He does not complain of the severely shortness of breath but at times does get short of breath when he exerts himself. He initially denied any black bloody or tarry stools his hemoglobin is low. We will guaiac him. His anemia may be due to chronic disease due to his cancer. 11/28/17 16:08 Patient was anemic. We did guaiac the patient. Was guaiac positive with brown stool no melena or bright red blood. We will transfuse the patient some blood. Was given a little fluid initially he may be edematous but I think he likely is intravascularly mildly depleted. Especially with his hyponatremia. His creatinine is elevated. I have spoke with oncology Dr. Shipley. He agrees with this at the moment. We will see the patient on consultation I spoke with Dr. Suresh will admit the patient to the hospital. Instructions to continue the blood. Hold additional fluid. 11/28/17 16:10 - Vital Signs Vital signs: Temp Pulse Resp BP Pulse Ox 97.5 F 89 19 113/62 98 11/28/17 11:08 11/28/17 11:08 11/28/17 15:30 11/28/17 15:30 11/28/17 15:30 - Laboratory Result Diagrams: 11/28/17 12:35 11/28/17 12:35 Laboratory results interpreted by me: 11/28/17 11/28/17 11/28/17 12:35 12:35 14:02 WBC 14.0 H RBC 2.90 L Hgb 7.2 L Hct 22.4 L MCV 77 L MCH 25.0 L RDW 18.4 H Plt Count 480 H Seg Neutrophils % 88.7 H Lymphocytes % 5.4 L Absolute Neutrophils 12.4 H Sodium 121.6 L Chloride 79 L BUN 48 H Creatinine 3.25 H Est GFR ( Amer) 22 L Est GFR (Non-Af Amer) 18 L Glucose 113 H Calcium 7.5 L Direct Bilirubin 0.5 H Total Protein 5.4 L Albumin 2.4 L Urine Protein 30 H - EKG Interpretation by Me Rhythm: A.Fib Additional EKG results interpreted by me: 11/28/17 13:54 A. fib at 94 rate controlled there is some flattening laterally no acute ST abnormalities noted Discharge - Discharge Clinical Impression: Acute kidney injury, Hyponatremia GI bleed Qualifiers: GI bleed type/associated pathology: unspecified gastrointestinal hemorrhage type Qualified Code(s): K92.2 - Gastrointestinal hemorrhage, unspecified Condition: Fair Disposition: ADMITTED INPATIENT Admitting Provider: [facility] Unit Admitted: [facility] Referrals: JAKE CAMARENA MD [Primary Care Provider] - Follow up as needed
[2017-11-28 13:58] LABS: CREATINE KINASE MB 3.55 ng/mL (<4.55)
[2017-11-28 13:59] LABS: TROPONIN I < 0.012 ng/mL
[2017-11-28] MEDS ORDERED: NA PHOS,M-B/NA PHOS,DI-BA (ADULT) 133 ML ENEMA PR ONE (14:14)
[2017-11-28 14:15] LABS: INTERNATIONAL RATION (INR) 1.16; PROTHROMBIN TIME 15.4 SEC (11.4-15.4)
[2017-11-28 14:54] LABS: APPEARANCE,URINE SLIGHTLY-CLOUDY; BILIRUBIN,URINE NEGATIVE (NEGATIVE); COLOR,URINE YELLOW; GLUCOSE, URINE NEGATIVE (NEGATIVE); KETONES,URINE NEGATIVE (NEGATIVE); LEUKOCYTE ESTERASE,URINE NEGATIVE (NEGATIVE); NITRITE,URINE NEGATIVE (NEGATIVE); PROTEIN,URINE 30 mg/dL (NEGATIVE); URINE SPECIFIC GRAVITY 1.011; UROBILINOGEN,URINE NEGATIVE mg/dL (<2.0)
[2017-11-28] MEDS ORDERED: NORMAL SALINE 250 ML IV PRN ×2 (15:44)
[2017-11-28] MEDS ORDERED: ACETAMINOPHEN 325 MG TABLET PO PRN (16:23)
[2017-11-28] MEDS ORDERED: ONDANSETRON 4 MG TAB.RAPDIS PO PRN (16:23)
[2017-11-28] MEDS ORDERED: DEXTROSE 50%-WATER 25 GM/50 ML DISP.SYRIN IV PRN ×2 (16:34)
[2017-11-28] MEDS ORDERED: DEXTROSE 40% GEL 15 GM TUBE PO PRN ×2 (16:34)
[2017-11-28] MEDS ORDERED: GLUCAGON,HUMAN RECOMB 1 MG INJ IM PRN (16:34)
--- NOTE | 2017-11-28 16:45 | PDOC H&P ---
History of Present Illness Admission Date/PCP: 11/28/17 16:25 JAKE CAMARENA MD History of Present Illness: NANCY VALDES is a 81 year old male Who is recently diagnosed with lung cancer. He was presently scheduled for first round of chemotherapy. Unfortunately the patient have gained a lot of weight and had some anasarca with third spacing. He was seen by the oncologist today and it was deemed that he was too much fluid overloaded and was referred to the emergency room for further evaluation. The patient was found to be in acute on chronic renal failure with symptomatic anemia and was admitted for further evaluation and treatment Past Medical History Cardiac Medical History: Reports: Congestive Heart Failure, Coronary Artery Disease, Hyperlipidema, Hypertension Denies: Myocardial Infarction Pulmonary Medical History: Reports: Chronic Obstructive Pulmonary Disease (COPD) Denies: Asthma Neurological Medical History: Denies: Seizures Endocrine Medical History: Reports: Diabetes Mellitus Type 2 Malignancy Medical History: Reports: Lung Cancer GI Medical History: Reports: Hiatal Hernia Denies: Hepatitis Hematology: Reports: Anemia - hx borderline Denies: Sickle Cell Disease Past Surgical History Past Surgical History: Reports: Cardiac Catheterization - stents, Coronary Artery Bypass Graft Denies: Pacemaker Social History Smoking Status: Former Smoker Frequency of Alcohol Use: None Hx Recreational Drug Use: No Hx Prescription Drug Abuse: No Family History Family History: DM, Hypertension Parental Family History Reviewed: Yes Children Family History Reviewed: Yes Sibling(s) Family History Reviewed.: Yes Medication/Allergy Home Medications: Amitriptyline HCl [Elavil 25 mg Tablet] 25 mg PO TIDP PRN 10/11/17 Ascorbic Acid [Vitamin C 500 mg Tablet] 500 mg PO TID 10/11/17 Aspirin [Aspirin EC] 81 mg PO DAILY 10/11/17 Dicyclomine HCl [Bentyl 10 mg Capsule] 10 mg PO QID 10/11/17 Ferrous Sulfate [Feosol 325 mg Tablet] 325 mg PO TID 10/11/17 Insulin Aspart [Novolog Flexpen] 10 unit SQ TID 10/11/17 Lisinopril [Prinivil] 20 mg PO DAILY 10/11/17 Simvastatin [Zocor 40 mg Tablet] 40 mg PO QPM 10/11/17 Acetaminophen [Tylenol 325 mg Tablet] 650 mg PO Q6HP PRN tablet 10/19/17 Amiodarone HCl [Cordarone 200 mg Tablet] 200 mg PO Q12 30 Days #60 tablet Calcium Carbonate [Tums Chewable 500 mg Tab.chew] 500 mg PO Q8HP PRN tab.chew 10/19/17 Docusate Sodium [Colace 100 mg Capsule] 100 mg PO BID 30 Days #60 capsule Hydralazine HCl [Apresoline 25 mg Tablet] 25 mg PO Q12 30 Days #60 tablet Insulin Detemir [Levemir Insulin 100 units/mL] 45 unit SUBCUT QHS 30 Days #1 insuln.pen 10/19/17 Levalbuterol HCl [Xopenex Neb 1.25 mg/3 ml Ampul] 1.25 mg NEB [id number] 30 Days # 120 vial.neb 10/19/17 Levofloxacin [Levaquin 500 mg Tablet] 500 mg PO QPM 5 Days #5 tablet 10/19/17 Lisinopril [Prinivil 10 mg Tablet] 20 mg PO DAILY tablet 10/19/17 Metolazone [Zaroxolyn 2.5 mg Tablet] 2.5 mg PO DAILY 30 Days #30 tablet Nitroglycerin [Nitro-Dur 10 mg (0.4MG/Hr) Transdermal Patch] 1 each TD DAILY 30 Days #30 patch.td24 10/19/17 Simvastatin [Zocor 40 mg Tablet] 40 mg PO QHS tablet 10/19/17 Allergies/Adverse Reactions: Penicillins Allergy (Verified 10/11/17 12:13) quinine Allergy (Verified 10/11/17 12:13) Sulfa (Sulfonamide Antibiotics) Allergy (Verified 10/11/17 12:13) Edema Review of Systems All systems: as per H Physical Exam Vital Signs: Temp Pulse Resp BP Pulse Ox 97.5 F 89 19 113/62 98 11/28/17 11:08 11/28/17 11:08 11/28/17 15:30 11/28/17 15:30 11/28/17 15:30 General appearance: PRESENT: mild distress Head exam: PRESENT: atraumatic Eye exam: PRESENT: conjunctiva pale Neck exam: PRESENT: carotid bruit. ABSENT: JVD Respiratory exam: PRESENT: rales Cardiovascular exam: PRESENT: RRR, +S1, +S2 GI/Abdominal exam: PRESENT: distended, soft Extremities exam: PRESENT: pedal edema Musculoskeletal exam: PRESENT: tenderness Neurological exam: PRESENT: alert, awake Results Impressions: Chest X-Ray 11/28/17 11:28 IMPRESSION: Left lower lobe consolidation with trace pleural fluid. Assessment & Plan - Diagnosis (1) Symptomatic anemia Is this a current diagnosis for this admission?: Yes Plan: Most probably GI bleed will transfuse (2) Lung cancer Is this a current diagnosis for this admission?: Yes Plan: Consult hematology oncology (3) Acute renal failure superimposed on chronic kidney disease Is this a current diagnosis for this admission?: Yes Plan: We will transfuse and then use diuretics. Will consult nephrology (4) GI bleed Qualifiers: GI bleed type/associated pathology: unspecified gastrointestinal hemorrhage type Qualified Code(s): K92.2 - Gastrointestinal hemorrhage, unspecified Is this a current diagnosis for this admission?: Yes Plan: We will transfuse and placed on PPIs. Will consider colonoscopy (5) Hyponatremia Is this a current diagnosis for this admission?: Yes Plan: Once the patient is fluid replenished we will reevaluate sodium and consider normal saline and diuretics (6) Atrial fibrillation Qualifiers: Is this a current diagnosis for this admission?: Yes Plan: Continue current treatment (7) Congestive heart failure Qualifiers: Is this a current diagnosis for this admission?: Yes Plan: Needs volume replenishment and then diuretics (8) Diabetes mellitus, type 2 Is this a current diagnosis for this admission?: Yes Plan: Continue insulin (9) Hypertensive disorder Qualifiers: Plan: Continue current medication
--- NOTE | 2017-11-28 17:17 | ER Document Report ---
Doctor's Note Notes: 11/28/17 17:15 CODE STATUS DISCUSSION I had a CODE STATUS discussion with the patient. At this time he would like to be full code. He would want CPR. He would want intubation. He does not have a living will. I spoke with him about the chronic problems he is dealing with. This includes his cancer. He would like to have a more thorough conversation with his oncologist about prognosis and survival. At this time though he is requesting full cardiopulmonary resuscitation if needed.
[2017-11-28] MEDS: INSULIN LISPRO 100 UNIT/ML 3 ML VIAL SUBCUT PRN ×2 (18:46→22:24)
[2017-11-28] MEDS: LEVALBUTEROL HCL NEB 1.25 MG/3 ML AMPUL NEB SCH (20:16)
[2017-11-28] MEDS ORDERED: FUROSEMIDE INJ/PF 20 MG/2 ML SDV IV ONE (22:00)
[2017-11-28] MEDS: GUAIFENESIN SYRP 200 MG/10 ML UDC PO PRN (22:01)
[2017-11-28] MEDS: BENZONATATE 100 MG CAPSULE PO PRN (22:03)
[2017-11-28] MEDS: AMIODARONE HCL 200 MG TABLET PO SCH (22:07)
[2017-11-28] MEDS: HYDRALAZINE HCL 25 MG TABLET PO SCH (22:21)
[2017-11-29] MEDS: LANSOPRAZOLE 30 MG TAB.RAP.DR PO SCH (05:11)
[2017-11-29] MEDS: GUAIFENESIN SYRP 200 MG/10 ML UDC PO PRN ×2 (05:12→17:41)
[2017-11-29] MEDS: BENZONATATE 100 MG CAPSULE PO PRN (05:12)
[2017-11-29 06:27] LABS: ABSOLUTE BASOPHILS # (AUTO) 0.1 10^3/uL (0.0-0.2); ABSOLUTE EOSINOPHILS # (AUTO) 0.3 10^3/uL (0.0-0.6); ABSOLUTE LYMPHOCYTES (AUTO) 0.9 10^3/uL (0.5-4.7); ABSOLUTE MONOCYTES (AUTO) 0.8 10^3/uL (0.1-1.4); ABSOLUTE NEUT (AUTO) 12.2 10^3/uL (1.7-8.2); BASOPHILS % (AUTO) 0.6 % (0-2); EOSINOPHILS % (AUTO) 1.9 % (0-6); HEMATOCRIT 28.1 % (37.9-51.0); LYMPHOCYTES % (AUTO) 6.6 % (13-45); MEAN CORPUSCULAR HEMOGLOBIN 26.9 pg (27.0-33.4); MEAN CORPUSCULAR HGB CONC 34.2 g/dL (32.0-36.0); MEAN CORPUSCULAR VOLUME 79 fl (80-97); MONOCYTES % (AUTO) 5.3 % (3-13); PLATELET COUNT 485 10^3/uL (150-450); RED BLOOD COUNT 3.58 10^6/uL (4.35-5.55); RED CELL DISTRIBUTION WIDTH 17.7 % (11.5-14.0); SEGMENTED NEUTROPHILS % (AUTO) 85.6 % (42-78); TOTAL CELLS COUNTED % (AUTO) 100 %; WHITE BLOOD COUNT 14.2 10^3/uL (4.0-10.5)
[2017-11-29 06:30] LABS: HEMOGLOBIN 9.6 g/dL (13.5-17.0)
[2017-11-29 06:58] LABS: ALANINE AMINOTRANSFERASE 43 U/L (21-72); ALBUMIN 2.2 g/dL (3.5-5.0); ALKALINE PHOSPHATASE 103 U/L (38-126); ANION GAP 12 (5-19); ASPARTATE AMINO TRANSFERASE 43 U/L (17-59); BILIRUBIN,DIRECT 0.5 mg/dL (0.0-0.4); BILIRUBIN,TOTAL 1.2 mg/dL (0.2-1.3); BLOOD UREA NITROGEN 44 mg/dL (7-20); CALCIUM 7.4 mg/dL (8.4-10.2); CARBON DIOXIDE 26 mmol/L (22-30); CHLORIDE 82 mmol/L (98-107); GLUCOSE 162 mg/dL (75-110); POTASSIUM 4.6 mmol/L (3.6-5.0); TOTAL PROTEIN 4.9 g/dL (6.3-8.2)
[2017-11-29] MEDS: LEVALBUTEROL HCL NEB 1.25 MG/3 ML AMPUL NEB SCH ×4 (07:56→20:17)
[2017-11-29] MEDS ORDERED: NORMAL SALINE 1000 ML 1,000 ML IV PRN (08:31)
--- NOTE | 2017-11-29 08:33 | PDOC CONSULTATION ---
Consultation Consult Date: 11/29/17 Attending physician:: ASHWIN RUIZ Consult reason:: Known history of stage IV lung cancer here with CHF exacerbation, acute on chronic renal failure History of Present Illness Admission Date/PCP: 11/28/17 16:25 JAKE CAMARENA MD Patient complains of: Weakness, confusion, dehydration History of Present Illness: NANCY VALDES is a 81 year old male with multiple medical problems including CHF, CKD, who presents with a one-week history of worsening functional status, increasing anasarca, poor p.o. intake and weakness. He came yesterday for discussion about initiation of chemotherapy, initially he really wanted to try chemotherapy, and his performance status seemed appropriate to consider it, but over the last week it is worsened considerably. Upon seeing him, we recommended admission to the hospital, and his primary care physician was kind enough to make that happen, upon admission his creatinine was elevated nearly the 4 range, it is a bit better today. Today I had a long discussion with family, spent greater than 70 minutes in discussion with his Vicky. I also discussed with the patient himself, about the dire situation, and recommended the consideration of comfort care and hospice along with DNR status. Right now, the patient is not ready to accept this, but family does seem ready to accept this. I discussed this case with my hospice community hospice, Julieta the [employer] special ed teacher will call the Vicky and set up an appointment today to talk with them. Depending on that discussion , we may get towards a home comfort care measure. At this point, I did clearly tell the patient and family that he is not a candidate for further chemotherapy. Past Medical History Cardiac Medical History: Reports: Congestive Heart Failure, Coronary Artery Disease, Hyperlipidema, Hypertension Denies: Myocardial Infarction Pulmonary Medical History: Reports: Chronic Obstructive Pulmonary Disease (COPD) Denies: Asthma Neurological Medical History: Denies: Seizures Endocrine Medical History: Reports: Diabetes Mellitus Type 2 Malignancy Medical History: Reports: Lung Cancer GI Medical History: Reports: Hiatal Hernia Denies: Hepatitis Psychiatric Medical History: Reports: Depression Hematology: Reports: Anemia - hx borderline Denies: Sickle Cell Disease Past Surgical History Past Surgical History: Reports: Cardiac Catheterization - stents, Coronary Artery Bypass Graft Denies: Pacemaker Social History Information Source: Patient Smoking Status: Former Smoker Last Time Smoked: 1991 Frequency of Alcohol Use: None Hx Recreational Drug Use: No Drugs: None Hx Prescription Drug Abuse: No - Advance Directive Resuscitation Status: Full Code Family History Family History: DM, Hypertension Parental Family History Reviewed: Yes Children Family History Reviewed: Yes Sibling(s) Family History Reviewed.: Yes Medication/Allergy Home Medications: Amitriptyline HCl [Elavil 25 mg Tablet] 25 mg PO Q8HP PRN 10/11/17 Dicyclomine HCl [Bentyl 10 mg Capsule] 10 mg PO QID 10/11/17 Insulin Aspart [Novolog Flexpen] 10 unit SQ MEALS 10/11/17 Lisinopril [Prinivil] 20 mg PO DAILY 10/11/17 Amiodarone HCl [Cordarone 200 mg Tablet] 200 mg PO Q12 30 Days #60 tablet Docusate Sodium [Colace 100 mg Capsule] 100 mg PO BID 30 Days #60 capsule Hydralazine HCl [Apresoline 25 mg Tablet] 25 mg PO Q12 30 Days #60 tablet Insulin Detemir [Levemir Insulin 100 units/mL] 45 unit SUBCUT QHS 30 Days #1 insuln.pen 10/19/17 Metolazone [Zaroxolyn 2.5 mg Tablet] 2.5 mg PO DAILY 30 Days #30 tablet Nitroglycerin [Nitro-Dur 10 mg (0.4MG/Hr) Transdermal Patch] 1 each TD DAILY 30 Days #30 patch.td24 10/19/17 Amlodipine Besylate [Norvasc 10 mg Tablet] 10 mg PO DAILY 11/28/17 Ondansetron HCl [Zofran 8 mg Tablet] 8 mg PO Q8HP PRN 11/28/17 Allergies/Adverse Reactions: Penicillins Allergy (Verified 10/11/17 12:13) quinine Allergy (Verified 10/11/17 12:13) Sulfa (Sulfonamide Antibiotics) Allergy (Verified 10/11/17 12:13) Edema Review of Systems Constitutional: PRESENT: fatigue, weakness, weight gain Cardiovascular: PRESENT: dyspnea on exertion Respiratory: PRESENT: cough, dyspnea, hemoptysis Gastrointestinal: PRESENT: bloating, nausea, vomiting Neurological: PRESENT: abnormal gait, frequent falls, lack of coordination, weakness Psychiatric: PRESENT: anxiety, depression Physical Exam Vital Signs: Temp Pulse Resp BP Pulse Ox 97.7 F 89 18 120/48 L 96 11/29/17 07:14 11/29/17 07:56 11/29/17 07:56 11/29/17 07:14 11/29/17 07:56 Intake & Output 11/28/17 11/29/17 11/30/17 06:59 06:59 06:59 Intake Total 1000 Output Total 300 Balance 700 Weight 67.8 kg General appearance: PRESENT: mild distress Head exam: PRESENT: atraumatic Mouth exam: PRESENT: dry mucosa Teeth exam: PRESENT: poor dentation Respiratory exam: PRESENT: accessory muscle use, crackles Cardiovascular exam: PRESENT: irregular rhythm, tachycardia GI/Abdominal exam: PRESENT: distended Rectal exam: PRESENT: deferred Neurological exam: PRESENT: awake, oriented to person Psychiatric exam: PRESENT: anxious Results Laboratory Results: 11/29/17 06:01 11/29/17 06:01 11/29/17 11/29/17 06:01 06:01 WBC 14.2 H RBC 3.58 L Hgb 9.6 L D Hct 28.1 L MCV 79 L MCH 26.9 L MCHC 34.2 RDW 17.7 H Plt Count 485 H Seg Neutrophils % 85.6 H Lymphocytes % 6.6 L Monocytes % 5.3 Eosinophils % 1.9 Basophils % 0.6 Absolute Neutrophils 12.2 H Absolute Lymphocytes 0.9 Absolute Monocytes 0.8 Absolute Eosinophils 0.3 Absolute Basophils 0.1 Sodium 120.0 L* Potassium 4.6 Chloride 82 L Carbon Dioxide 26 Anion Gap 12 BUN 44 H Creatinine 2.95 H Est GFR ( Amer) 25 L Est GFR (Non-Af Amer) 20 L Glucose 162 H Calcium 7.4 L Magnesium 2.4 H Total Bilirubin 1.2 AST 43 ALT 43 Alkaline Phosphatase 103 Total Protein 4.9 L Albumin 2.2 L Impressions: Chest X-Ray 11/28/17 11:28 IMPRESSION: Left lower lobe consolidation with trace pleural fluid. Assessment & Plan - Diagnosis (1) Lung cancer Qualifiers: Laterality: right Is this a current diagnosis for this admission?: Yes Plan: Stage IV lung cancer, had a long discussion with patient and family today, recommended comfort care measures, will follow. - Time Time Spent: Greater than 70 Minutes - Inpatient Certification Based on my medical assessment, after consideration of the patient's comorbidities, presenting symptoms, or acuity I expect that the services needed warrant INPATIENT care.: Yes I certify that my determination is in accordance with my understanding of Medicare's requirements for reasonable and necessary INPATIENT services [42 CFR 412.3e].: Yes Medical Necessity: Need For Continuous Telemetry Monitoring, Risk of Complication if Not Cared For in Hospital
--- NOTE | 2017-11-29 08:44 | PDOC PROGRESS REPORT ---
Subjective Progress Note for:: 11/29/17 Subjective:: The patient appears to be slightly better. He is not much short of breath. He is in A. fib this morning. He denies any shortness of breath. He has received 2 units of packed red blood cells. Long discussion with the patient about resuscitation. He does not want CPR he does not want life support. Advised the patient to discuss his wishes with his and his children and make a decision about the DNR. Reason For Visit: GI BLEED,SYMPTOMATIC ANEMIA,FLUID OVERLOAD,CHF Physical Exam Vital Signs: Temp Pulse Resp BP Pulse Ox 97.7 F 89 18 120/48 L 96 11/29/17 07:14 11/29/17 07:56 11/29/17 07:56 11/29/17 07:14 11/29/17 07:56 Intake & Output 11/28/17 11/29/17 11/30/17 06:59 06:59 06:59 Intake Total 1000 Output Total 300 Balance 700 Weight 67.8 kg General appearance: PRESENT: mild distress Head exam: PRESENT: atraumatic Eye exam: PRESENT: conjunctiva pale Neck exam: ABSENT: carotid bruit, JVD Respiratory exam: PRESENT: rales Cardiovascular exam: PRESENT: irregular rhythm, +S1, +S2 GI/Abdominal exam: PRESENT: soft Extremities exam: PRESENT: pedal edema Musculoskeletal exam: PRESENT: tenderness Neurological exam: PRESENT: awake Results Laboratory Results: 11/29/17 06:01 11/29/17 06:01 11/29/17 11/29/17 06:01 06:01 WBC 14.2 H RBC 3.58 L Hgb 9.6 L D Hct 28.1 L MCV 79 L MCH 26.9 L MCHC 34.2 RDW 17.7 H Plt Count 485 H Seg Neutrophils % 85.6 H Lymphocytes % 6.6 L Monocytes % 5.3 Eosinophils % 1.9 Basophils % 0.6 Absolute Neutrophils 12.2 H Absolute Lymphocytes 0.9 Absolute Monocytes 0.8 Absolute Eosinophils 0.3 Absolute Basophils 0.1 Sodium 120.0 L* Potassium 4.6 Chloride 82 L Carbon Dioxide 26 Anion Gap 12 BUN 44 H Creatinine 2.95 H Est GFR ( Amer) 25 L Est GFR (Non-Af Amer) 20 L Glucose 162 H Calcium 7.4 L Magnesium 2.4 H Total Bilirubin 1.2 AST 43 ALT 43 Alkaline Phosphatase 103 Total Protein 4.9 L Albumin 2.2 L Impressions: Chest X-Ray 11/28/17 11:28 IMPRESSION: Left lower lobe consolidation with trace pleural fluid. Assessment & Plan - Diagnosis (1) Symptomatic anemia Is this a current diagnosis for this admission?: Yes Plan: We will continue with resuscitation. H&H has improved after the transfusion (2) Lung cancer Qualifiers: Laterality: right Is this a current diagnosis for this admission?: Yes Plan: Discussed with the oncology. They are considering hospice at home. (3) Acute renal failure superimposed on chronic kidney disease Is this a current diagnosis for this admission?: Yes Plan: Creatinine has improved slightly. We will start with IV fluid hydration (4) GI bleed Qualifiers: GI bleed type/associated pathology: unspecified gastrointestinal hemorrhage type Qualified Code(s): K92.2 - Gastrointestinal hemorrhage, unspecified Is this a current diagnosis for this admission?: Yes (5) Hyponatremia Is this a current diagnosis for this admission?: Yes Plan: Will add normal saline. Awaiting nephrology consultation (6) Atrial fibrillation Qualifiers: Is this a current diagnosis for this admission?: Yes Plan: Continue amiodarone (7) Congestive heart failure Qualifiers: Is this a current diagnosis for this admission?: Yes Plan: We will start diuretics (8) Diabetes mellitus, type 2 Is this a current diagnosis for this admission?: Yes Plan: Continue insulin (9) Hypertensive disorder Qualifiers:
[2017-11-29] MEDS ORDERED: FUROSEMIDE INJ/PF 40 MG/4 ML SDV IV SCH (10:00)
[2017-11-29] MEDS: HYDRALAZINE HCL 25 MG TABLET PO SCH (10:58)
[2017-11-29] MEDS: AMIODARONE HCL 200 MG TABLET PO SCH ×2 (10:58→22:12)
[2017-11-29] MEDS: NITROGLYCERIN 10 MG (0.4 MG/HR) PATCH.TD24 TD SCH (10:58)
[2017-11-29] MEDS: INSULIN LISPRO 100 UNIT/ML 3 ML VIAL SUBCUT PRN ×3 (13:09→22:13)
--- NOTE | 2017-11-29 13:33 | PDOC CONSULTATION ---
Consultation Consult Date: 11/29/17 Consult reason:: Acute on chronic renal failure History of Present Illness Admission Date/PCP: 11/28/17 16:25 JAKE CAMARENA MD History of Present Illness: NANCY VALDES is a 81 year old male with history of recent diagnosis of lung cancer. He came to the hospital after he was found to have severe anasarca prior to his first chemo treatment. He did not receive his first round of chemotherapy due to the anasarca. In the ER the patient had labs and chest x- ray. The chest x-ray showed a left lower lobe consolidation and possible traces of a pleural effusion. Labs showed an elevated creatinine in the 3s, sodium of 121, and a hemoglobin in the 7s. He was started on normal saline and given a blood transfusion. He was started on 40mg of furosemide BID starting today. At the time of examination the patient denied any prior history underlining kidney disease, except over the past couple of months. He denies s/s of hyponatremia. He also denies chest pain, sob, n/v/d/c. He admits to coughing with coughing up some clear sputum. Past Medical History Cardiac Medical History: Reports: Coronary Artery Disease, Hyperlipidemia Denies: Myocardial Infarction Pulmonary Medical History: Reports: Chronic Obstructive Pulmonary Disease (COPD) Denies: Asthma Neurological Medical History: Denies: Seizures Endocrine Medical History: Reports: Diabetes Mellitus Type 2 Malignancy Medical History: Reports: Lung Cancer GI Medical History: Reports: Hiatal Hernia Denies: Hepatitis Psychiatric Medical History: Reports: Depression Past Surgical History Past Surgical History: Reports: Cardiac Catheterization - stents, Coronary Artery Bypass Graft Denies: Pacemaker Social History Smoking Status: Former Smoker Last Time Smoked: 1991 Frequency of Alcohol Use: None Hx Recreational Drug Use: No Drugs: None Hx Prescription Drug Abuse: No - Advance Directive Resuscitation Status: Full Code Family History Parental Family History Reviewed: No Children Family History Reviewed: Unknown Sibling(s) Family History Reviewed.: Unknown Medication/Allergy Home Medications: Amitriptyline HCl [Elavil 25 mg Tablet] 25 mg PO Q8HP PRN 10/11/17 Dicyclomine HCl [Bentyl 10 mg Capsule] 10 mg PO QID 10/11/17 Insulin Aspart [Novolog Flexpen] 10 unit SQ MEALS 10/11/17 Lisinopril [Prinivil] 20 mg PO DAILY 10/11/17 Amiodarone HCl [Cordarone 200 mg Tablet] 200 mg PO Q12 30 Days #60 tablet Docusate Sodium [Colace 100 mg Capsule] 100 mg PO BID 30 Days #60 capsule Hydralazine HCl [Apresoline 25 mg Tablet] 25 mg PO Q12 30 Days #60 tablet Insulin Detemir [Levemir Insulin 100 units/mL] 45 unit SUBCUT QHS 30 Days #1 insuln.pen 10/19/17 Metolazone [Zaroxolyn 2.5 mg Tablet] 2.5 mg PO DAILY 30 Days #30 tablet Nitroglycerin [Nitro-Dur 10 mg (0.4MG/Hr) Transdermal Patch] 1 each TD DAILY 30 Days #30 patch.td24 10/19/17 Amlodipine Besylate [Norvasc 10 mg Tablet] 10 mg PO DAILY 11/28/17 Ondansetron HCl [Zofran 8 mg Tablet] 8 mg PO Q8HP PRN 11/28/17 Allergies/Adverse Reactions: Penicillins Allergy (Verified 10/11/17 12:13) quinine Allergy (Verified 10/11/17 12:13) Sulfa (Sulfonamide Antibiotics) Allergy (Verified 10/11/17 12:13) Edema Review of Systems Constitutional: ABSENT: chills, fatigue, fever(s), headache(s), weakness Eyes: ABSENT: visual disturbances Nose, Mouth, and Throat: ABSENT: headache(s) Cardiovascular: ABSENT: chest pain, dyspnea on exertion, edema, orthropnea, palpitations Respiratory: PRESENT: cough, sputum. ABSENT: dyspnea Gastrointestinal: ABSENT: constipation, diarrhea, nausea, vomiting Genitourinary: ABSENT: difficulty urinating, dysuria Neurological: ABSENT: convulsions, dizziness, weakness Physical Exam Vital Signs: Temp Pulse Resp BP Pulse Ox 97.7 F 91 18 120/48 L 94 11/29/17 07:14 11/29/17 11:48 11/29/17 11:48 11/29/17 07:14 11/29/17 11:48 Intake & Output 11/28/17 11/29/17 11/30/17 06:59 06:59 06:59 Intake Total 1000 177 Output Total 300 300 Balance 700 -123 Weight 67.8 kg General appearance: PRESENT: no acute distress, well-developed, well-nourished Mouth exam: PRESENT: moist, neck supple Neck exam: PRESENT: full ROM. ABSENT: JVD Respiratory exam: PRESENT: crackles. ABSENT: clear to auscultation ferny, rales, rhonchi, wheezes - -base of the left lung Cardiovascular exam: PRESENT: RRR, +S1, +S2 GI/Abdominal exam: PRESENT: soft. ABSENT: tenderness Extremities exam: PRESENT: joint swelling, pedal edema, +2 edema - /3+. ABSENT : tenderness Musculoskeletal exam: ABSENT: normal inspection, tenderness Neurological exam: PRESENT: alert, awake, oriented to person, oriented to place , oriented to time, oriented to situation Skin exam: PRESENT: dry, intact, warm. ABSENT: cyanosis Results Laboratory Results: 11/29/17 06:01 11/29/17 06:01 11/29/17 11/29/17 06:01 06:01 WBC 14.2 H RBC 3.58 L Hgb 9.6 L D Hct 28.1 L MCV 79 L MCH 26.9 L MCHC 34.2 RDW 17.7 H Plt Count 485 H Seg Neutrophils % 85.6 H Lymphocytes % 6.6 L Monocytes % 5.3 Eosinophils % 1.9 Basophils % 0.6 Absolute Neutrophils 12.2 H Absolute Lymphocytes 0.9 Absolute Monocytes 0.8 Absolute Eosinophils 0.3 Absolute Basophils 0.1 Sodium 120.0 L* Potassium 4.6 Chloride 82 L Carbon Dioxide 26 Anion Gap 12 BUN 44 H Creatinine 2.95 H Est GFR ( Amer) 25 L Est GFR (Non-Af Amer) 20 L Glucose 162 H Calcium 7.4 L Magnesium 2.4 H Total Bilirubin 1.2 AST 43 ALT 43 Alkaline Phosphatase 103 Total Protein 4.9 L Albumin 2.2 L Impressions: Chest X-Ray 11/28/17 11:28 IMPRESSION: Left lower lobe consolidation with trace pleural fluid. Assessment & Plan - Diagnosis (1) Acute renal failure superimposed on chronic kidney disease Is this a current diagnosis for this admission?: Yes Plan: nonoliguric, due to fluid overload from third spacing due to low albumin. Other factors include a blood pressure that is at the low end of normal. Continue with current furosemide dose. If he does not react well to the furosemide, he may need some albumin prior to giving the furosemide. Will look to have his hydralazine held for now. Will also get a renal ultrasound. All medications should be adjusted for a GFR of less than 25. No current indication for [employer]. (2) Hyponatremia Is this a current diagnosis for this admission?: Yes Plan: Will get a urine sodium, osmolrity and a serum osmoalrity, along with having a bmp checked every 4 hours. Continue with current furosemide. Also having him fluid restricted to 1000mL a day. Sodium should not be corrected more than 10mEQ in 24 hours. (3) Congestive heart failure Qualifiers: Is this a current diagnosis for this admission?: Yes Plan: continue on current dose of furosemide, will be reassessed tomorrow. (4) GI bleed Qualifiers: GI bleed type/associated pathology: unspecified gastrointestinal hemorrhage type Qualified Code(s): K92.2 - Gastrointestinal hemorrhage, unspecified Is this a current diagnosis for this admission?: Yes Plan: per primary (5) Lung cancer Qualifiers: Laterality: right Is this a current diagnosis for this admission?: Yes Plan: per heme/onc (6) Diabetes mellitus, type 2 Is this a current diagnosis for this admission?: Yes
[2017-11-29 16:16] LABS: ANION GAP 9 (5-19); BLOOD UREA NITROGEN 46 mg/dL (7-20); CARBON DIOXIDE 27 mmol/L (22-30); CHLORIDE 82 mmol/L (98-107); GLUCOSE 230 mg/dL (75-110); POTASSIUM 4.3 mmol/L (3.6-5.0)
[2017-11-29 16:28] LABS: CALCIUM 6.9 mg/dL (8.4-10.2); SODIUM 118.3 mmol/L (137-145)
[2017-11-29 17:36] LABS: URINE SODIUM 15 mmol/L (30-90)
[2017-11-29 18:01] LABS: OSMOLALITY,URINE 255 mOsm/kg (300-900)
[2017-11-29] MEDS: TOLVAPTAN 15 MG TABLET PO SCH (18:17)
[2017-11-29 20:49] LABS: ANION GAP 10 (5-19); BLOOD UREA NITROGEN 46 mg/dL (7-20); CARBON DIOXIDE 27 mmol/L (22-30); CHLORIDE 81 mmol/L (98-107); GLUCOSE 193 mg/dL (75-110); POTASSIUM 4.6 mmol/L (3.6-5.0)
[2017-11-29 21:28] LABS: CALCIUM 6.9 mg/dL (8.4-10.2)
[2017-11-29] MEDS: FUROSEMIDE INJ/PF 40 MG/4 ML SDV IV SCH (22:13)
[2017-11-29 22:39] LABS: BLOOD UREA NITROGEN 47 mg/dL (7-20); CALCIUM 7.3 mg/dL (8.4-10.2); CARBON DIOXIDE 28 mmol/L (22-30); CHLORIDE 81 mmol/L (98-107); GLUCOSE 191 mg/dL (75-110); POTASSIUM 4.7 mmol/L (3.6-5.0)
[2017-11-29 22:42] LABS: ANION GAP 11 (5-19)
[2017-11-29 22:50] LABS: SODIUM 119.5 mmol/L (137-145)
[2017-11-30] MEDS: GUAIFENESIN SYRP 200 MG/10 ML UDC PO PRN ×4 (00:24→19:41)
[2017-11-30 02:22] LABS: ANION GAP 9 (5-19); BLOOD UREA NITROGEN 46 mg/dL (7-20); CARBON DIOXIDE 27 mmol/L (22-30); CHLORIDE 83 mmol/L (98-107); GLUCOSE 168 mg/dL (75-110); POTASSIUM 4.4 mmol/L (3.6-5.0)
[2017-11-30 02:33] LABS: CALCIUM 6.8 mg/dL (8.4-10.2); SODIUM 119.2 mmol/L (137-145)
[2017-11-30] MEDS: FUROSEMIDE INJ/PF 40 MG/4 ML SDV IV SCH ×3 (05:17→21:50)
[2017-11-30] MEDS: LANSOPRAZOLE 30 MG TAB.RAP.DR PO SCH (05:17)
[2017-11-30] MEDS: BENZONATATE 100 MG CAPSULE PO PRN ×2 (05:17→21:50)
[2017-11-30 06:09] LABS: ABSOLUTE BASOPHILS # (AUTO) 0.1 10^3/uL (0.0-0.2); ABSOLUTE EOSINOPHILS # (AUTO) 0.3 10^3/uL (0.0-0.6); ABSOLUTE LYMPHOCYTES (AUTO) 0.6 10^3/uL (0.5-4.7); ABSOLUTE MONOCYTES (AUTO) 0.7 10^3/uL (0.1-1.4); ABSOLUTE NEUT (AUTO) 9.5 10^3/uL (1.7-8.2); BASOPHILS % (AUTO) 0.7 % (0-2); EOSINOPHILS % (AUTO) 2.2 % (0-6); HEMATOCRIT 25.3 % (37.9-51.0); HEMOGLOBIN 8.6 g/dL (13.5-17.0); LYMPHOCYTES % (AUTO) 5.7 % (13-45); MEAN CORPUSCULAR HEMOGLOBIN 26.5 pg (27.0-33.4); MEAN CORPUSCULAR VOLUME 78 fl (80-97); PLATELET COUNT 379 10^3/uL (150-450); RED BLOOD COUNT 3.25 10^6/uL (4.35-5.55); RED CELL DISTRIBUTION WIDTH 18.2 % (11.5-14.0); SEGMENTED NEUTROPHILS % (AUTO) 85.4 % (42-78); TOTAL CELLS COUNTED % (AUTO) 100 %; WHITE BLOOD COUNT 11.2 10^3/uL (4.0-10.5)
[2017-11-30 06:28] LABS: ALANINE AMINOTRANSFERASE 39 U/L (21-72); ALKALINE PHOSPHATASE 95 U/L (38-126); ASPARTATE AMINO TRANSFERASE 37 U/L (17-59); BILIRUBIN,DIRECT 0.3 mg/dL (0.0-0.4); BILIRUBIN,TOTAL 0.6 mg/dL (0.2-1.3); BLOOD UREA NITROGEN 45 mg/dL (7-20); CALCIUM 7.1 mg/dL (8.4-10.2); CARBON DIOXIDE 26 mmol/L (22-30); CHLORIDE 82 mmol/L (98-107); GLUCOSE 156 mg/dL (75-110); POTASSIUM 4.5 mmol/L (3.6-5.0); TOTAL PROTEIN 4.6 g/dL (6.3-8.2)
[2017-11-30 06:31] LABS: ANION GAP 12 (5-19)
[2017-11-30 06:33] LABS: SODIUM 119.7 mmol/L (137-145)
[2017-11-30] MEDS: LEVALBUTEROL HCL NEB 1.25 MG/3 ML AMPUL NEB SCH ×4 (07:50→20:22)
[2017-11-30] MEDS: INSULIN LISPRO 100 UNIT/ML 3 ML VIAL SUBCUT PRN ×4 (08:09→21:57)
--- NOTE | 2017-11-30 08:25 | PDOC PROGRESS REPORT ---
Subjective Progress Note for:: 11/30/17 Subjective:: The patient states to feel the same. He has just discussed between him and his son and the oncologist about the hospice at home. Discussed the discharge possibly tomorrow Reason For Visit: GI BLEED,SYMPTOMATIC ANEMIA,FLUID OVERLOAD,CHF Physical Exam Vital Signs: Temp Pulse Resp BP Pulse Ox 98.2 F 97 22 H 112/51 L 94 11/30/17 07:50 11/30/17 07:50 11/30/17 07:50 11/30/17 07:50 11/30/17 07:50 Intake & Output 11/29/17 11/30/17 12/01/17 06:59 06:59 06:59 Intake Total 1000 1845 Output Total 300 1425 Balance 700 420 Weight 67.8 kg 101.4 kg General appearance: PRESENT: mild distress Head exam: PRESENT: atraumatic Eye exam: PRESENT: conjunctiva pink Neck exam: ABSENT: carotid bruit, JVD Respiratory exam: PRESENT: rales, rhonchi Cardiovascular exam: PRESENT: irregular rhythm, +S1, +S2 GI/Abdominal exam: PRESENT: normal bowel sounds, soft Extremities exam: PRESENT: pedal edema Musculoskeletal exam: PRESENT: tenderness Neurological exam: PRESENT: alert, awake Results Laboratory Results: 11/30/17 05:53 11/30/17 05:53 11/29/17 11/29/17 11/29/17 15:22 15:22 17:00 WBC RBC Hgb Hct MCV MCH MCHC RDW Plt Count Seg Neutrophils % Lymphocytes % Monocytes % Eosinophils % Basophils % Absolute Neutrophils Absolute Lymphocytes Absolute Monocytes Absolute Eosinophils Absolute Basophils Sodium 118.3 L* Potassium 4.3 Chloride 82 L Carbon Dioxide 27 Anion Gap 9 BUN 46 H Creatinine 3.02 H Est GFR ( Amer) 24 L Est GFR (Non-Af Amer) 20 L Glucose 230 H Serum Osmolality 269 L Calcium 6.9 L* Total Bilirubin AST ALT Alkaline Phosphatase Total Protein Albumin Urine Osmolality 255 L 11/29/17 11/29/17 11/30/17 20:00 22:00 01:57 WBC RBC Hgb Hct MCV MCH MCHC RDW Plt Count Seg Neutrophils % Lymphocytes % Monocytes % Eosinophils % Basophils % Absolute Neutrophils Absolute Lymphocytes Absolute Monocytes Absolute Eosinophils Absolute Basophils Sodium 118.0 L* 119.5 L* 119.2 L* Potassium 4.6 4.7 4.4 Chloride 81 L 81 L 83 L Carbon Dioxide 27 28 27 Anion Gap 10 11 9 BUN 46 H 47 H 46 H Creatinine 2.65 H 3.06 H 2.97 H Est GFR ( Amer) 28 L 24 L 25 L Est GFR (Non-Af Amer) 23 L 20 L 20 L Glucose 193 H 191 H 168 H Serum Osmolality Calcium 6.9 L* 7.3 L 6.8 L* Total Bilirubin AST ALT Alkaline Phosphatase Total Protein Albumin Urine Osmolality 11/30/17 11/30/17 05:53 05:53 WBC 11.2 H RBC 3.25 L Hgb 8.6 L Hct 25.3 L MCV 78 L MCH 26.5 L MCHC 34.0 RDW 18.2 H Plt Count 379 Seg Neutrophils % 85.4 H Lymphocytes % 5.7 L Monocytes % 6.0 Eosinophils % 2.2 Basophils % 0.7 Absolute Neutrophils 9.5 H Absolute Lymphocytes 0.6 Absolute Monocytes 0.7 Absolute Eosinophils 0.3 Absolute Basophils 0.1 Sodium 119.7 L* Potassium 4.5 Chloride 82 L Carbon Dioxide 26 Anion Gap 12 BUN 45 H Creatinine 2.92 H Est GFR ( Amer) 25 L Est GFR (Non-Af Amer) 21 L Glucose 156 H Serum Osmolality Calcium 7.1 L Total Bilirubin 0.6 AST 37 ALT 39 Alkaline Phosphatase 95 Total Protein 4.6 L Albumin 2.0 L Urine Osmolality Impressions: Chest X-Ray 11/28/17 11:28 IMPRESSION: Left lower lobe consolidation with trace pleural fluid. Assessment & Plan - Diagnosis (1) Symptomatic anemia Is this a current diagnosis for this admission?: Yes Plan: We will continue with resuscitation. H&H has improved after the transfusion (2) Lung cancer Qualifiers: Laterality: right Is this a current diagnosis for this admission?: Yes Plan: Discussed with the oncology. They are considering hospice at home. (3) Acute renal failure superimposed on chronic kidney disease Is this a current diagnosis for this admission?: Yes Plan: Creatinine has improved slightly. We will start with IV fluid hydration (4) GI bleed Qualifiers: GI bleed type/associated pathology: unspecified gastrointestinal hemorrhage type Qualified Code(s): K92.2 - Gastrointestinal hemorrhage, unspecified Is this a current diagnosis for this admission?: Yes (5) Hyponatremia Is this a current diagnosis for this admission?: Yes Plan: Will add normal saline. Awaiting nephrology consultation (6) Atrial fibrillation Qualifiers: Is this a current diagnosis for this admission?: Yes (7) Congestive heart failure Qualifiers: Is this a current diagnosis for this admission?: Yes Plan: We will start diuretics (8) Diabetes mellitus, type 2 Is this a current diagnosis for this admission?: Yes Plan: Continue insulin (9) Hypertensive disorder Qualifiers:
--- NOTE | 2017-11-30 08:27 | PDOC PROGRESS REPORT ---
Subjective Progress Note for:: 11/30/17 Subjective:: No acute events overnight, patient and family had a long conversation with hospice and family feels more comfortable with in-home hospice now. Hyponatremia is continued and nephrology has been consulted, primary team feels that he would benefit from another 24 hours admission because of the hyponatremia to see if that will stabilize a bit. Reason For Visit: GI BLEED,SYMPTOMATIC ANEMIA,FLUID OVERLOAD,CHF Physical Exam Vital Signs: Temp Pulse Resp BP Pulse Ox 98.2 F 97 22 H 112/51 L 94 11/30/17 07:50 11/30/17 07:50 11/30/17 07:50 11/30/17 07:50 11/30/17 07:50 Intake & Output 11/29/17 11/30/17 12/01/17 06:59 06:59 06:59 Intake Total 1000 1845 Output Total 300 1425 Balance 700 420 Weight 67.8 kg 101.4 kg General appearance: PRESENT: no acute distress, well-developed, well-nourished Head exam: PRESENT: atraumatic, normocephalic Eye exam: PRESENT: conjunctiva pink, EOMI, PERRLA. ABSENT: scleral icterus Ear exam: PRESENT: normal external ear exam Mouth exam: PRESENT: moist, tongue midline Neck exam: ABSENT: carotid bruit, JVD, lymphadenopathy, thyromegaly Respiratory exam: PRESENT: clear to auscultation ferny. ABSENT: rales, rhonchi, wheezes Cardiovascular exam: PRESENT: RRR. ABSENT: diastolic murmur, rubs, systolic murmur Pulses: PRESENT: normal dorsalis pedis pul Vascular exam: PRESENT: normal capillary refill GI/Abdominal exam: PRESENT: normal bowel sounds, soft. ABSENT: distended, guarding, mass, organolmegaly, rebound, tenderness Rectal exam: PRESENT: deferred Extremities exam: PRESENT: full ROM. ABSENT: calf tenderness, clubbing, pedal edema Neurological exam: PRESENT: alert, awake, oriented to person, oriented to place , oriented to time, oriented to situation, CN II-XII grossly intact. ABSENT: motor sensory deficit Psychiatric exam: PRESENT: appropriate affect, normal mood. ABSENT: homicidal ideation, suicidal ideation Skin exam: PRESENT: dry, intact, warm. ABSENT: cyanosis, rash Results Laboratory Results: 11/30/17 05:53 11/30/17 05:53 11/29/17 11/29/17 11/29/17 15:22 15:22 17:00 WBC RBC Hgb Hct MCV MCH MCHC RDW Plt Count Seg Neutrophils % Lymphocytes % Monocytes % Eosinophils % Basophils % Absolute Neutrophils Absolute Lymphocytes Absolute Monocytes Absolute Eosinophils Absolute Basophils Sodium 118.3 L* Potassium 4.3 Chloride 82 L Carbon Dioxide 27 Anion Gap 9 BUN 46 H Creatinine 3.02 H Est GFR ( Amer) 24 L Est GFR (Non-Af Amer) 20 L Glucose 230 H Serum Osmolality 269 L Calcium 6.9 L* Total Bilirubin AST ALT Alkaline Phosphatase Total Protein Albumin Urine Osmolality 255 L 11/29/17 11/29/17 11/30/17 20:00 22:00 01:57 WBC RBC Hgb Hct MCV MCH MCHC RDW Plt Count Seg Neutrophils % Lymphocytes % Monocytes % Eosinophils % Basophils % Absolute Neutrophils Absolute Lymphocytes Absolute Monocytes Absolute Eosinophils Absolute Basophils Sodium 118.0 L* 119.5 L* 119.2 L* Potassium 4.6 4.7 4.4 Chloride 81 L 81 L 83 L Carbon Dioxide 27 28 27 Anion Gap 10 11 9 BUN 46 H 47 H 46 H Creatinine 2.65 H 3.06 H 2.97 H Est GFR ( Amer) 28 L 24 L 25 L Est GFR (Non-Af Amer) 23 L 20 L 20 L Glucose 193 H 191 H 168 H Serum Osmolality Calcium 6.9 L* 7.3 L 6.8 L* Total Bilirubin AST ALT Alkaline Phosphatase Total Protein Albumin Urine Osmolality 11/30/17 11/30/17 05:53 05:53 WBC 11.2 H RBC 3.25 L Hgb 8.6 L Hct 25.3 L MCV 78 L MCH 26.5 L MCHC 34.0 RDW 18.2 H Plt Count 379 Seg Neutrophils % 85.4 H Lymphocytes % 5.7 L Monocytes % 6.0 Eosinophils % 2.2 Basophils % 0.7 Absolute Neutrophils 9.5 H Absolute Lymphocytes 0.6 Absolute Monocytes 0.7 Absolute Eosinophils 0.3 Absolute Basophils 0.1 Sodium 119.7 L* Potassium 4.5 Chloride 82 L Carbon Dioxide 26 Anion Gap 12 BUN 45 H Creatinine 2.92 H Est GFR ( Amer) 25 L Est GFR (Non-Af Amer) 21 L Glucose 156 H Serum Osmolality Calcium 7.1 L Total Bilirubin 0.6 AST 37 ALT 39 Alkaline Phosphatase 95 Total Protein 4.6 L Albumin 2.0 L Urine Osmolality Impressions: Chest X-Ray 11/28/17 11:28 IMPRESSION: Left lower lobe consolidation with trace pleural fluid. Assessment & Plan - Diagnosis (1) Lung cancer Qualifiers: Laterality: right Is this a current diagnosis for this admission?: Yes Plan: No further treatment plan, hospice home will be planned, patient is still full code but I believe that we will change once we get him home. Had a long conversation with the patient and sons who are at bedside, spent greater than 45 minutes in discussion. - Time Time Spent with patient: 35 or more minutes - Inpatient Certification Based on my medical assessment, after consideration of the patient's comorbidities, presenting symptoms, or acuity I expect that the services needed warrant INPATIENT care.: Yes I certify that my determination is in accordance with my understanding of Medicare's requirements for reasonable and necessary INPATIENT services [42 CFR 412.3e].: Yes Medical Necessity: Risk of Complication if Not Cared For in Hospital
[2017-11-30] MEDS: NITROGLYCERIN 10 MG (0.4 MG/HR) PATCH.TD24 TD SCH (09:10)
[2017-11-30] MEDS: TOLVAPTAN 15 MG TABLET PO SCH (09:10)
[2017-11-30] MEDS: AMIODARONE HCL 200 MG TABLET PO SCH ×2 (09:10→21:50)
[2017-11-30] MEDS: SODIUM CHLORIDE NASAL SPRAY 44 ML NASL SCH (09:11)
[2017-11-30 11:32] LABS: ANION GAP 13 (5-19); BLOOD UREA NITROGEN 47 mg/dL (7-20); CALCIUM 7.3 mg/dL (8.4-10.2); CARBON DIOXIDE 24 mmol/L (22-30); CHLORIDE 82 mmol/L (98-107); GLUCOSE 200 mg/dL (75-110); POTASSIUM 4.5 mmol/L (3.6-5.0)
[2017-11-30 11:38] LABS: SODIUM 119.3 mmol/L (137-145)
--- NOTE | 2017-11-30 13:30 | Physician Advisory Note ---
Physician Advisor ProgressNote .: Pursuant to the plan for [facility], I have reviewed the medical record for this patient. Physician Advisor Statement: Please consider documenting, if you agree: 1. "Suspected acute blood loss anemia" [on top of chronic anemia of ] 2. "(Chronic or) [id number] diastolic CHF w/mild pulmonary HTN" (per ECHO in Sep) 3. If possible, most likely cause of the suspected acute/chr GI bleeding. Thanks! CK Note: baseline Cr appears to be between 1.6 & 2.1 from prior levels here last mo. Hgb appeared baseline 10-11 in May 2016 through Sep 2017. - Hgb on 10/11 was 10.3, on 10/13 was 9.4, on 10/15 was 9.7, on 10/17 was 9.2, on 10/19 was 8.8, and on 11/28 was 7.2.
--- NOTE | 2017-11-30 14:18 | PDOC PROGRESS REPORT ---
Subjective Progress Note for:: 11/30/17 Subjective:: Patient was seen today sitting in his bed. He at the time had his son's sitting standing in the room next to him. He at the time had noticed a decrease in the swelling of the legs. Him and his family had also agreed for him to be moved to home hospice. He denied chest pain, SOB, n/v/d/c. Reason For Visit: GI BLEED,SYMPTOMATIC ANEMIA,FLUID OVERLOAD,CHF Physical Exam Vital Signs: Temp Pulse Resp BP Pulse Ox 98.4 F 87 18 98/59 L 95 11/30/17 11:07 11/30/17 11:47 11/30/17 11:47 11/30/17 11:07 11/30/17 11:47 Intake & Output 11/29/17 11/30/17 12/01/17 06:59 06:59 06:59 Intake Total 1000 1845 90 Output Total 300 1425 650 Balance 700 420 -560 Weight 67.8 kg 101.4 kg General appearance: PRESENT: no acute distress, well-developed, well-nourished Mouth exam: PRESENT: moist. ABSENT: neck supple Neck exam: PRESENT: full ROM. ABSENT: JVD Respiratory exam: PRESENT: crackles, decreased breath sounds. ABSENT: rales, rhonchi, wheezes Cardiovascular exam: PRESENT: RRR, +S1, +S2 GI/Abdominal exam: PRESENT: soft. ABSENT: tenderness Extremities exam: PRESENT: pedal edema, +2 edema - /3+. ABSENT: tenderness Musculoskeletal exam: PRESENT: normal inspection. ABSENT: tenderness Neurological exam: PRESENT: alert, awake, oriented to person, oriented to place , oriented to time, oriented to situation Skin exam: PRESENT: dry, intact, warm. ABSENT: cyanosis Results Laboratory Results: 11/30/17 05:53 11/30/17 10:25 11/29/17 11/29/17 11/29/17 15:22 15:22 17:00 WBC RBC Hgb Hct MCV MCH MCHC RDW Plt Count Seg Neutrophils % Lymphocytes % Monocytes % Eosinophils % Basophils % Absolute Neutrophils Absolute Lymphocytes Absolute Monocytes Absolute Eosinophils Absolute Basophils Sodium 118.3 L* Potassium 4.3 Chloride 82 L Carbon Dioxide 27 Anion Gap 9 BUN 46 H Creatinine 3.02 H Est GFR ( Amer) 24 L Est GFR (Non-Af Amer) 20 L Glucose 230 H Serum Osmolality 269 L Calcium 6.9 L* Total Bilirubin AST ALT Alkaline Phosphatase Total Protein Albumin Urine Osmolality 255 L 11/29/17 11/29/17 11/30/17 20:00 22:00 01:57 WBC RBC Hgb Hct MCV MCH MCHC RDW Plt Count Seg Neutrophils % Lymphocytes % Monocytes % Eosinophils % Basophils % Absolute Neutrophils Absolute Lymphocytes Absolute Monocytes Absolute Eosinophils Absolute Basophils Sodium 118.0 L* 119.5 L* 119.2 L* Potassium 4.6 4.7 4.4 Chloride 81 L 81 L 83 L Carbon Dioxide 27 28 27 Anion Gap 10 11 9 BUN 46 H 47 H 46 H Creatinine 2.65 H 3.06 H 2.97 H Est GFR ( Amer) 28 L 24 L 25 L Est GFR (Non-Af Amer) 23 L 20 L 20 L Glucose 193 H 191 H 168 H Serum Osmolality Calcium 6.9 L* 7.3 L 6.8 L* Total Bilirubin AST ALT Alkaline Phosphatase Total Protein Albumin Urine Osmolality 11/30/17 11/30/17 11/30/17 05:53 05:53 10:25 WBC 11.2 H RBC 3.25 L Hgb 8.6 L Hct 25.3 L MCV 78 L MCH 26.5 L MCHC 34.0 RDW 18.2 H Plt Count 379 Seg Neutrophils % 85.4 H Lymphocytes % 5.7 L Monocytes % 6.0 Eosinophils % 2.2 Basophils % 0.7 Absolute Neutrophils 9.5 H Absolute Lymphocytes 0.6 Absolute Monocytes 0.7 Absolute Eosinophils 0.3 Absolute Basophils 0.1 Sodium 119.7 L* 119.3 L* Potassium 4.5 4.5 Chloride 82 L 82 L Carbon Dioxide 26 24 Anion Gap 12 13 BUN 45 H 47 H Creatinine 2.92 H 2.79 H Est GFR ( Amer) 25 L 26 L Est GFR (Non-Af Amer) 21 L 22 L Glucose 156 H 200 H Serum Osmolality Calcium 7.1 L 7.3 L Total Bilirubin 0.6 AST 37 ALT 39 Alkaline Phosphatase 95 Total Protein 4.6 L Albumin 2.0 L Urine Osmolality Impressions: Chest X-Ray 11/28/17 11:28 IMPRESSION: Left lower lobe consolidation with trace pleural fluid. Assessment & Plan - Diagnosis (1) Acute renal failure superimposed on chronic kidney disease Is this a current diagnosis for this admission?: Yes Plan: currently improving, with patient moving to hospices no changes will be made and follow as outpatient is not necessary (2) Hyponatremia Is this a current diagnosis for this admission?: Yes Plan: patient's sodium has been getting monitored every 4 hours. Hyponatremia is do to hypervolemia. Currently on tolvaptan at 15mg and furosemide. No changes will be made due to him being declared as hospice. Case was discussed with Dr. Heart. Will continue to monitor. Patient will need to come off the tolvaptan by monday (12/04/2017). (3) Congestive heart failure Qualifiers: Is this a current diagnosis for this admission?: Yes Plan: improving on furosemide (4) GI bleed Qualifiers: GI bleed type/associated pathology: unspecified gastrointestinal hemorrhage type Qualified Code(s): K92.2 - Gastrointestinal hemorrhage, unspecified Is this a current diagnosis for this admission?: Yes (5) Lung cancer Qualifiers: Laterality: right Is this a current diagnosis for this admission?: Yes Plan: per heme-onc (6) Diabetes mellitus, type 2 Is this a current diagnosis for this admission?: Yes - Notes Notes: case and plan was discussed with Dr. Heart.
[2017-11-30 15:05] LABS: ANION GAP 13 (5-19); BLOOD UREA NITROGEN 44 mg/dL (7-20); CALCIUM 7.3 mg/dL (8.4-10.2); CARBON DIOXIDE 25 mmol/L (22-30); CHLORIDE 81 mmol/L (98-107); GLUCOSE 204 mg/dL (75-110); POTASSIUM 4.4 mmol/L (3.6-5.0)
[2017-11-30 15:22] LABS: SODIUM 119.1 mmol/L (137-145)
[2017-11-30 20:28] LABS: ANION GAP 11 (5-19); BLOOD UREA NITROGEN 45 mg/dL (7-20); CALCIUM 7.1 mg/dL (8.4-10.2); CARBON DIOXIDE 27 mmol/L (22-30); CHLORIDE 81 mmol/L (98-107); GLUCOSE 214 mg/dL (75-110); POTASSIUM 4.8 mmol/L (3.6-5.0)
[2017-11-30 20:39] LABS: SODIUM 119.4 mmol/L (137-145)
[2017-12-01] MEDS: GUAIFENESIN SYRP 200 MG/10 ML UDC PO PRN ×2 (01:36→05:27)
[2017-12-01] MEDS: BENZONATATE 100 MG CAPSULE PO PRN (05:27)
[2017-12-01] MEDS: LANSOPRAZOLE 30 MG TAB.RAP.DR PO SCH (05:27)
[2017-12-01] MEDS: FUROSEMIDE INJ/PF 40 MG/4 ML SDV IV SCH (05:27)
--- NOTE | 2017-12-01 07:53 | PDOC PROGRESS REPORT ---
Subjective Progress Note for:: 12/01/17 Subjective:: No acute events overnight, a bit more lethargic overnight Reason For Visit: GI BLEED,SYMPTOMATIC ANEMIA,FLUID OVERLOAD,CHF Physical Exam Vital Signs: Temp Pulse Resp BP Pulse Ox 97.8 F 97 22 H 107/53 L 92 12/01/17 04:01 12/01/17 07:00 12/01/17 04:01 12/01/17 04:01 12/01/17 04:01 Intake & Output 11/30/17 12/01/17 12/02/17 06:59 06:59 06:59 Intake Total 1845 390 Output Total 1425 2625 Balance 420 -2235 Weight 101.4 kg 104 kg General appearance: PRESENT: no acute distress, well-developed, well-nourished Head exam: PRESENT: atraumatic, normocephalic Eye exam: PRESENT: conjunctiva pink, EOMI, PERRLA. ABSENT: scleral icterus Ear exam: PRESENT: normal external ear exam Mouth exam: PRESENT: moist, tongue midline Neck exam: ABSENT: carotid bruit, JVD, lymphadenopathy, thyromegaly Respiratory exam: PRESENT: clear to auscultation ferny. ABSENT: rales, rhonchi, wheezes Cardiovascular exam: PRESENT: RRR. ABSENT: diastolic murmur, rubs, systolic murmur Pulses: PRESENT: normal dorsalis pedis pul Vascular exam: PRESENT: normal capillary refill GI/Abdominal exam: PRESENT: normal bowel sounds, soft. ABSENT: distended, guarding, mass, organolmegaly, rebound, tenderness Rectal exam: PRESENT: deferred Extremities exam: PRESENT: full ROM. ABSENT: calf tenderness, clubbing, pedal edema Neurological exam: PRESENT: alert, awake, oriented to person, oriented to place , oriented to time, oriented to situation, CN II-XII grossly intact. ABSENT: motor sensory deficit Psychiatric exam: PRESENT: appropriate affect, normal mood. ABSENT: homicidal ideation, suicidal ideation Skin exam: PRESENT: dry, intact, warm. ABSENT: cyanosis, rash Results Laboratory Results: 11/30/17 05:53 11/30/17 20:00 11/30/17 11/30/17 11/30/17 10:25 14:12 20:00 Sodium 119.3 L* 119.1 L* 119.4 L* Potassium 4.5 4.4 4.8 Chloride 82 L 81 L 81 L Carbon Dioxide 24 25 27 Anion Gap 13 13 11 BUN 47 H 44 H 45 H Creatinine 2.79 H 2.93 H 2.31 H Est GFR ( Amer) 26 L 25 L 33 L Est GFR (Non-Af Amer) 22 L 21 L 27 L Glucose 200 H 204 H 214 H Calcium 7.3 L 7.3 L 7.1 L Impressions: Chest X-Ray 11/28/17 11:28 IMPRESSION: Left lower lobe consolidation with trace pleural fluid. Assessment & Plan - Diagnosis (1) Lung cancer Qualifiers: Laterality: right Is this a current diagnosis for this admission?: Yes Plan: Planned for home hospice, primary team trying to get pt to euvolemic state with improved hyponatremia prior to dc to improve comfort and breathing status. Equipment delivered and in home.
[2017-12-01] MEDS: LEVALBUTEROL HCL NEB 1.25 MG/3 ML AMPUL NEB SCH ×2 (08:17→11:50)
[2017-12-01] MEDS: INSULIN LISPRO 100 UNIT/ML 3 ML VIAL SUBCUT PRN (08:26)
[2017-12-01 08:33] LABS: ABSOLUTE BASOPHILS # (AUTO) 0.1 10^3/uL (0.0-0.2); ABSOLUTE EOSINOPHILS # (AUTO) 0.2 10^3/uL (0.0-0.6); ABSOLUTE LYMPHOCYTES (AUTO) 0.6 10^3/uL (0.5-4.7); ABSOLUTE MONOCYTES (AUTO) 0.7 10^3/uL (0.1-1.4); ABSOLUTE NEUT (AUTO) 10.4 10^3/uL (1.7-8.2); BASOPHILS % (AUTO) 0.5 % (0-2); HEMATOCRIT 26.3 % (37.9-51.0); HEMOGLOBIN 8.8 g/dL (13.5-17.0); LYMPHOCYTES % (AUTO) 5.2 % (13-45); MEAN CORPUSCULAR HEMOGLOBIN 26.5 pg (27.0-33.4); MEAN CORPUSCULAR HGB CONC 33.4 g/dL (32.0-36.0); MEAN CORPUSCULAR VOLUME 79 fl (80-97); MONOCYTES % (AUTO) 5.8 % (3-13); PLATELET COUNT 354 10^3/uL (150-450); RED BLOOD COUNT 3.32 10^6/uL (4.35-5.55); RED CELL DISTRIBUTION WIDTH 18.6 % (11.5-14.0); SEGMENTED NEUTROPHILS % (AUTO) 86.5 % (42-78); TOTAL CELLS COUNTED % (AUTO) 100 %
[2017-12-01 08:44] LABS: ANION GAP 9 (5-19); BLOOD UREA NITROGEN 49 mg/dL (7-20); CALCIUM 7.3 mg/dL (8.4-10.2); CARBON DIOXIDE 28 mmol/L (22-30); CHLORIDE 84 mmol/L (98-107); GLUCOSE 189 mg/dL (75-110); POTASSIUM 4.6 mmol/L (3.6-5.0); SODIUM 121.4 mmol/L (137-145)
--- NOTE | 2017-12-01 08:55 | PDOC DISCHARGE SUMMARY ---
General - Admit/Disc Date/PCP Admission Date/Primary Care Provider: 11/28/17 16:25 JAKE CAMARENA MD Discharge Date: 12/01/17 - Discharge Diagnosis (1) Symptomatic anemia Is this a current diagnosis for this admission?: Yes (2) Lung cancer Is this a current diagnosis for this admission?: Yes Summary: Comfort care. Hospice. (3) Acute renal failure superimposed on chronic kidney disease Is this a current diagnosis for this admission?: Yes (4) GI bleed Is this a current diagnosis for this admission?: Yes (5) Hyponatremia Is this a current diagnosis for this admission?: Yes Summary: Tolvaptan for 3 more days (6) Atrial fibrillation Is this a current diagnosis for this admission?: Yes Summary: Continue current treatment (7) Congestive heart failure Is this a current diagnosis for this admission?: Yes (8) Diabetes mellitus, type 2 Is this a current diagnosis for this admission?: Yes (10) DNR (do not resuscitate) Is this a current diagnosis for this admission?: Yes Summary: Discussed with the patient and his son who opted for the DO NOT RESUSCITATE status - Additional Information Resuscitation Status: Full Code Discharge Diet: Cardiac, Diabetic Prescriptions: Furosemide [Lasix Inj/Pf 40 mg/4 ml Sdv] 40 mg PO BID #60 vial Tolvaptan [Samsca 15 mg Tablet] 15 mg PO DAILY #5 tablet Home Medications: Insulin Aspart [Novolog Flexpen] 10 unit SQ MEALS 10/11/17 Amiodarone HCl [Cordarone 200 mg Tablet] 200 mg PO Q12 30 Days #60 tablet Docusate Sodium [Colace 100 mg Capsule] 100 mg PO BID 30 Days #60 capsule Hydralazine HCl [Apresoline 25 mg Tablet] 25 mg PO Q12 30 Days #60 tablet Insulin Detemir [Levemir Insulin 100 units/mL] 45 unit SUBCUT QHS 30 Days #1 insuln.pen 10/19/17 Nitroglycerin [Nitro-Dur 10 mg (0.4MG/Hr) Transdermal Patch] 1 each TD DAILY 30 Days #30 patch.td24 10/19/17 Amlodipine Besylate [Norvasc 10 mg Tablet] 10 mg PO DAILY 11/28/17 Ondansetron HCl [Zofran 8 mg Tablet] 8 mg PO Q8HP PRN 11/28/17 Acetaminophen [Tylenol 325 mg Tablet] 650 mg PO Q4HP PRN tablet 12/01/17 Furosemide [Lasix Inj/Pf 40 mg/4 ml Sdv] 40 mg PO BID #60 vial 12/01/17 Insulin Lispro [Humalog Insulin (Lispro) 100 unit/mL] 0 - 12 unit SUBCUT ACHSP PRN unit 12/01/17 Lansoprazole [Prevacid 30 mg Odt Tablet] 30 mg PO Q6AM tab.rap. 12/01/17 Levalbuterol HCl [Xopenex Neb 1.25 mg/3 ml Ampul] 1.25 mg NEB [id number] vial.neb 12/01/17 Tolvaptan [Samsca 15 mg Tablet] 15 mg PO DAILY #5 tablet 12/01/17 History of Present Illness History of Present Illness: NANCY VALDES is a 81 year old male Who is recently diagnosed with lung cancer. He was presently scheduled for first round of chemotherapy. Unfortunately the patient have gained a lot of weight and had some anasarca with third spacing. He was seen by the oncologist today and it was deemed that he was too much fluid overloaded and was referred to the emergency room for further evaluation. The patient was found to be in acute on chronic renal failure with symptomatic anemia and was admitted for further evaluation and treatment Hospital Course Hospital Course: The patient was admitted with symptomatic anemia and hyponatremia. He was fluid overloaded. He was treated accordingly in the hospital and the final decision has been made for patient to be discharged home on hospice. Physical Exam Vital Signs: Temp Pulse Resp BP Pulse Ox 98.2 F 83 16 118/45 L 95 12/01/17 08:07 12/01/17 08:17 12/01/17 08:17 12/01/17 08:07 12/01/17 08:17 Intake & Output 11/30/17 12/01/17 12/02/17 06:59 06:59 06:59 Intake Total 1845 390 Output Total 1425 2625 Balance 420 -2235 Weight 101.4 kg 104 kg General appearance: PRESENT: no acute distress Head exam: PRESENT: atraumatic Eye exam: PRESENT: conjunctiva pink Respiratory exam: PRESENT: rales, rhonchi Cardiovascular exam: PRESENT: irregular rhythm, +S1, +S2 Extremities exam: PRESENT: pedal edema Musculoskeletal exam: PRESENT: tenderness Neurological exam: PRESENT: awake Results Laboratory Results: 12/01/17 08:15 12/01/17 08:15 11/30/17 11/30/17 11/30/17 10:25 14:12 20:00 WBC RBC Hgb Hct MCV MCH MCHC RDW Plt Count Seg Neutrophils % Lymphocytes % Monocytes % Eosinophils % Basophils % Absolute Neutrophils Absolute Lymphocytes Absolute Monocytes Absolute Eosinophils Absolute Basophils Sodium 119.3 L* 119.1 L* 119.4 L* Potassium 4.5 4.4 4.8 Chloride 82 L 81 L 81 L Carbon Dioxide 24 25 27 Anion Gap 13 13 11 BUN 47 H 44 H 45 H Creatinine 2.79 H 2.93 H 2.31 H Est GFR ( Amer) 26 L 25 L 33 L Est GFR (Non-Af Amer) 22 L 21 L 27 L Glucose 200 H 204 H 214 H Calcium 7.3 L 7.3 L 7.1 L 12/01/17 12/01/17 08:15 08:15 WBC 12.0 H RBC 3.32 L Hgb 8.8 L Hct 26.3 L MCV 79 L MCH 26.5 L MCHC 33.4 RDW 18.6 H Plt Count 354 Seg Neutrophils % 86.5 H Lymphocytes % 5.2 L Monocytes % 5.8 Eosinophils % 2.0 Basophils % 0.5 Absolute Neutrophils 10.4 H Absolute Lymphocytes 0.6 Absolute Monocytes 0.7 Absolute Eosinophils 0.2 Absolute Basophils 0.1 Sodium 121.4 L Potassium 4.6 Chloride 84 L Carbon Dioxide 28 Anion Gap 9 BUN 49 H Creatinine 2.66 H Est GFR ( Amer) 28 L Est GFR (Non-Af Amer) 23 L Glucose 189 H Calcium 7.3 L Impressions: Chest X-Ray 11/28/17 11:28 IMPRESSION: Left lower lobe consolidation with trace pleural fluid. Qualifiers - * PATIENT BEING DISCHARGED WITH ANY OF THE FOLLOWING DIAGNOSIS: No
[2017-12-01] MEDS ORDERED: FUROSEMIDE 40 MG TABLET PO SCH (10:00)
[2017-12-01] MEDS: SODIUM CHLORIDE NASAL SPRAY 44 ML NASL SCH (10:58)
[2017-12-01] MEDS: TOLVAPTAN 15 MG TABLET PO SCH (10:58)
[2017-12-01] MEDS: AMIODARONE HCL 200 MG TABLET PO SCH (10:59)
[2017-12-01] MEDS: NITROGLYCERIN 10 MG (0.4 MG/HR) PATCH.TD24 TD SCH (10:59)
[2017-12-01 12:14] VITALS: BP 108/43
== END 2017-12-01 12:25 | disposition hospice, home (50) | DRG 683 ==
LOC: ER 10:56 → EH 16:25 → 3W 19:13
PROVIDERS: ADMIT Internal Medicine; ATTEND Internal Medicine
PROC: 30233N1 Transfusion of Nonautologous Red Blood Cells into Peripheral Vein, Percutaneous Approach (ICD-10-PCS; principal; 2017-11-28)
PROC: 3E02340 Introduction of Influenza Vaccine into Muscle, Percutaneous Approach (ICD-10-PCS; 2017-12-01)
DX: N17.9 Acute kidney failure, unspecified (principal); E87.1 Hypo-osmolality and hyponatremia; I13.0 Hypertensive heart and chronic kidney disease with heart failure and stage 1 through stage 4 chronic kidney disease, or unspecified chronic kidney disease; C34.91 Malignant neoplasm of unspecified part of right bronchus or lung; K92.2 Gastrointestinal hemorrhage, unspecified; E11.22 Type 2 diabetes mellitus with diabetic chronic kidney disease; N18.9 Chronic kidney disease, unspecified; K44.9 Diaphragmatic hernia without obstruction or gangrene; I25.10 Atherosclerotic heart disease of native coronary artery without angina pectoris; I48.91 Unspecified atrial fibrillation; E78.5 Hyperlipidemia, unspecified; J44.9 Chronic obstructive pulmonary disease, unspecified; I50.9 Heart failure, unspecified; D63.1 Anemia in chronic kidney disease; Z95.1 Presence of aortocoronary bypass graft; Z87.891 Personal history of nicotine dependence; Z82.49 Family history of ischemic heart disease and other diseases of the circulatory system; Z83.3 Family history of diabetes mellitus; Z79.4 Long term (current) use of insulin; Z79.84 Long term (current) use of oral hypoglycemic drugs; Z79.899 Other long term (current) drug therapy; Z88.0 Allergy status to penicillin; Z88.1 Allergy status to other antibiotic agents; Z88.2 Allergy status to sulfonamides; Z66 Do not resuscitate; Z23 Encounter for immunization
CPT/HCPCS: 36415; 36430; 51702; 71045; 80048; 80053; 81001; 82272; 82550; 82553; 82962; 83735; 83930; 83935; 84300; 84484; 85025; 85610; 86850; 86900; 86901; 86920; 90686; 93005; 93010; 94640; 96360; 96361; 99285; A9270-GY; J1815; J1940; J3490; J7030; P9016; S0119